=== PATIENT | female | born 1945 | race Caucasian/White ===

== ENCOUNTER → 2016-11-05 | Outpatient (CLI) | payer MEDICARE, OTHER ==
[~2016-11-05] MED LIST: /CIPR75TA OR; /ESOM40CA PO; /ONDA4TA PO; ACET50TA PO; ALBU17IN INH; BACITAB PO; BUPR150T3 PO; COLA50CA3 PO; E-Z-GAS II EFFERVESCENT PACKET (SODIUM BICARB./CITRIC ACID/SIMETHICONE) As Ordered ONE; E-Z-HD 98% w/w 340GM SUSP BTL As Ordered ONE; E-Z-PAQUE 96% w/w SUSP 176GM BTL As Ordered ONE; FLAG500T OR; FLUO40CA PO; HYDR-3719 PO; LEVS0.123 PO; NEUR300C PO; NORC5TAB PO; PERC5TAB PO; PERC5TAB8 OR; PROB1TAB PO; PROZ40CA OR; RANI300T PO; REGL10TA6 PO; SENO8.6T9 PO; SIME80CH PO; SUCR1SUS PO; SUCR1TA PO; SYMB16INH INH; VANC250C PO; VANC5INJ5 PO; WELLTAB PO; celebrex PO; neurontin OR; prilosec OR
--- NOTE | 2016-11-05 12:32 | REP ---
ESOPHAGRAM: The procedure was performed under the direct supervision of Dr. Jacobo. The images were reviewed with Dr. Jacobo. A single view PA chest x-ray is submitted as a internet sales consultant film. There is no change compared to a previous chest x-ray performed on 04/02/2015. Liquid barium was given in the erect and prone oblique positions. The oral and pharyngeal stages of deglutition are unremarkable. During esophageal transport, there are tertiary waves demonstrated. There is no esophagitis, stricture, mucosal ring or hiatal hernia. Gastroesophageal reflux is not demonstrated on this examination. There are postoperative changes at the GE junction consistent with the patient's history of Tiffany fundoplasty. There is free flow of contrast through the GE junction without evidence of stricture or obstruction. IMPRESSION: There are postoperative changes at the GE junction consistent with the patient's history of Tiffany fundoplasty. There is no delay of contrast through the GE junction. There is no evidence of stricture. There are tertiary waves demonstrated. 54 seconds of fluoroscopy time was utilized for this procedure. Reviewed by JOEL Neff 11/05/2016 01:42 PEdited and Signed by Vic Jacobo MD 11/05/2016 02:35 P
== END ==
LOC: M RAD 08:30
PROVIDERS: ATTEND Physician Assistant Medical
DX: R13.10 Dysphagia, unspecified (principal); R10.13 Epigastric pain; K21.9 Gastro-esophageal reflux disease without esophagitis

== ENCOUNTER → 2016-11-12 | Outpatient (CLI) | payer MEDICARE, OTHER ==
[~2016-11-12] VITALS: Ht 165.1 cm; Wt 66.7 kg
[~2016-11-12] MED LIST changes: -E-Z-GAS II EFFERVESCENT PACKET (SODIUM BICARB./CITRIC ACID/SIMETHICONE) As Ordered ONE; -E-Z-HD 98% w/w 340GM SUSP BTL As Ordered ONE; -E-Z-PAQUE 96% w/w SUSP 176GM BTL As Ordered ONE; +LIDOCAINE 2% INJ 100 MG/5 ML SDV (FOR ANES.) As Ordered ONE; +NS 1,000 ML IV SCH; +PROPOFOL 200 MG/20 ML VIAL As Ordered ONE
--- NOTE | 2016-11-12 10:29 | ROOR ---
Patient Name: Madonna Cerda Procedure Date: 11/12/2016 10:08 AM Date of : 1945 Age: 71 Room: [facility], [facility]IN [facility] Gender: Female Note Status: Finalized Procedure: Upper GI endoscopy Indications: Dysphagia, Heartburn, Failure to respond to medical treatment Providers: Fede LINDSEY MD Referring MD: DULCE HOANG MD Requesting Provider: Medicines: Monitored Anesthesia Care Complications: No immediate complications. Procedure: Pre-Anesthesia Assessment: - The heart rate, respiratory rate, oxygen saturations, blood pressure, adequacy of pulmonary ventilation, and response to care were monitored throughout the procedure. The Endoscope was introduced through the mouth, and advanced to the second part of duodenum. The upper GI endoscopy was accomplished without difficulty. The patient tolerated the procedure well. Findings: The examined esophagus was normal. The Z-line was regular and was found 39 cm from the incisors. Evidence of an anti-reflux surgical site was found in the cardia. This was characterized by healthy appearing mucosa. The entire examined stomach was normal. The examined duodenum was normal. No endoscopic abnormality was evident in the esophagus to explain the patient's complaint of dysphagia. It was decided, however, to proceed with dilation of the entire esophagus. The scope was withdrawn. Dilation was performed with a Bell dilator with no resistance at 54 Fr. The dilation site was examined following endoscope reinsertion and showed no change. No endoscopic abnormality was evident in the esophagus to explain the patient's complaint of dysphagia. This was biopsied with a cold forceps for evaluation of eosinophilic esophagitis. Impression: - Normal esophagus. No endoscopic esophageal abnormality to explain patient's dysphagia. Esophagus dilated.Biopsied. - Z-line regular, 39 cm from the incisors. - An anti-reflux surgical site was found, characterized by healthy appearing mucosa. - Normal stomach. - Normal examined duodenum. Recommendation: - Await pathology results. - Observe patient's clinical course. - Continue present medications. - dep on path and results of empiric dilation, consideration may be given to a trial of amitryptiline. Fede Lindsey MD Fede LINDSEY MD 11/12/2016 10:29:42 AM This report has been signed electronically. Number of Addenda: 0 Note Initiated On: 11/12/2016 10:08 AM Estimated Blood Loss: Estimated blood loss: none.
--- NOTE | 2016-11-12 10:46 | ROOR ---
Patient Name: Madonna Cerda Procedure Date: 11/12/2016 10:09 AM Date of : 1945 Age: 71 Room: [facility] Gender: Female Note Status: Finalized Procedure: Colonoscopy Indications: Screening for colorectal malignant neoplasm, Incidental: abnormal TI on recent CT, recent clostridium difficile Providers: Fede LINDSEY MD Referring MD: DULCE HOANG MD Requesting Provider: Medicines: Monitored Anesthesia Care Complications: No immediate complications. Procedure: Pre-Anesthesia Assessment: - The heart rate, respiratory rate, oxygen saturations, blood pressure, adequacy of pulmonary ventilation, and response to care were monitored throughout the procedure. The Colonoscope was introduced through the anus and advanced to 6 cm into the ileum. The colonoscopy was performed without difficulty. The patient tolerated the procedure well. The quality of the bowel preparation was good. Findings: (Exam: Complete, Prep: Good or Excellent.) Multiple medium-mouthed diverticula were found in the sigmoid colon. There was evidence of diverticular spasm. The entire examined colon appeared normal on direct and retroflexion views. The terminal ileum appeared normal. Impression: - (Exam: Complete, Prep: Good or Excellent.) - Moderate diverticulosis in the sigmoid colon. - The entire examined colon is normal on direct and retroflexion views. - The examined portion of the ileum was normal. - No specimens collected. Recommendation: - Repeat colonoscopy in 10 years for screening purposes. Fede Lindsey MD Fede LINDSEY MD 11/12/2016 10:45:58 AM This report has been signed electronically. Number of Addenda: 0 Note Initiated On: 11/12/2016 10:09 AM Estimated Blood Loss: Estimated blood loss: none.
[2016-11-12 11:05] VITALS: BP 165/67
== END | disposition home or self-care (01) ==
LOC: M OPP 08:24
PROVIDERS: ATTEND Internal Medicine Gastroenterology
DX: Z12.11 Encounter for screening for malignant neoplasm of colon (principal); K57.30 Diverticulosis of large intestine without perforation or abscess without bleeding; R13.10 Dysphagia, unspecified; Z98.890 Other specified postprocedural states; J44.9 Chronic obstructive pulmonary disease, unspecified; M19.90 Unspecified osteoarthritis, unspecified site; F41.9 Anxiety disorder, unspecified; F33.9 Major depressive disorder, recurrent, unspecified; Z87.891 Personal history of nicotine dependence; Z79.899 Other long term (current) drug therapy; Z79.51 Long term (current) use of inhaled steroids
CPT/HCPCS: 43239; 43450; 88305; G0121

== ENCOUNTER → 2016-11-14 | Outpatient (REF) | payer MEDICARE, OTHER ==
[~2016-11-14] MED LIST changes: -LIDOCAINE 2% INJ 100 MG/5 ML SDV (FOR ANES.) As Ordered ONE; -NS 1,000 ML IV SCH; -PROPOFOL 200 MG/20 ML VIAL As Ordered ONE
[2016-11-14 16:05] LABS: BLOOD UREA NITROGEN 20 MG/DL (7-18); CREATININE FOR GFR 0.94 MG/DL (0.55-1.02); GLOMERULAR FILTRATION RATE > 60.0 (>39)
== END ==
LOC: M LABDRAW1 15:27
PROVIDERS: ATTEND Orthopaedic Surgery
DX: M17.12 Unilateral primary osteoarthritis, left knee (principal)

== ENCOUNTER → 2016-12-02 | Outpatient (REF) | payer MEDICARE, OTHER ==
[2016-12-02 14:28] LABS: BASO % 0.8 % (0.0-1.0); EOS # 0.1 K/mm3 (0.0-0.50); LARGE UNSTAINED CELL # 0.1 K/mm3 (0.0-0.4); LARGE UNSTAINED CELL % 1.8 % (0.0-4.0); LYMPH # 1.5 K/mm3 (1.5-4.5); LYMPH % 28.9 % (24.0-44.0); MEAN CORPUSCULAR HEMOGLOBIN 30.9 pg (27.0-33.0); MEAN CORPUSCULAR HGB CONC 31.3 g/dl (32.0-36.5); MEAN CORPUSCULAR VOLUME 98.6 fl (80.0-96.0); MONO # 0.3 K/mm3 (0.0-0.8); MONO % 6.5 % (0.0-5.0); NEUTROPHILS % 60.1 % (36.0-66.0); PLATELET COUNT, AUTOMATED 225 k/mm3 (150-450); RED CELL DISTRIBUTION WIDTH 13.3 % (11.5-14.5)
[2016-12-02 14:36] LABS: ALBUMIN 3.6 GM/DL (3.2-5.2); ALBUMIN/GLOBULIN RATIO 1.44 (1.00-1.93); ALKALINE PHOSPHATASE 67 U/L (45-117); ALT/SGPT 24 U/L (12-78); AMYLASE 34 U/L (25-115); ANION GAP 8 MEQ/L (8-16); AST/SGOT 17 U/L (15-37); BILIRUBIN,TOTAL 0.6 MG/DL (0.2-1.0); BLOOD UREA NITROGEN 18 MG/DL (7-18); CALCIUM LEVEL 8.8 MG/DL (8.8-10.2); CARBON DIOXIDE LEVEL 30 MEQ/L (21-32); CHLORIDE LEVEL 106 MEQ/L (98-107); CREATININE FOR GFR 0.86 MG/DL (0.55-1.02); GLOMERULAR FILTRATION RATE > 60.0 (>39); GLUCOSE, FASTING 88 MG/DL (83-110); POTASSIUM SERUM 3.8 MEQ/L (3.5-5.1); SODIUM LEVEL 144 MEQ/L (136-145); TOTAL PROTEIN 6.1 GM/DL (6.4-8.2)
== END ==
LOC: M LABDRAW1 14:00
PROVIDERS: ATTEND Physician Assistant Medical
DX: R10.13 Epigastric pain (principal)

== ENCOUNTER → 2016-12-04 | Outpatient (CLI) | payer MEDICARE, OTHER ==
--- NOTE | 2016-12-04 08:31 | REP ---
Clinical: Acute epigastric abdominal pain. Technique: Sullivan scale ultrasound using curved array transducer. Findings: The liver and pancreas are normal in contour, size, and echogenicity without focal hepatic or pancreatic lesions identified. The gallbladder demonstrates layering sludge/gravel and a sonographic Atkins's sign was elicited during examination. No gallbladder wall thickening or pericholecystic fluid is appreciated. No biliary ductal dilatation is identified, and the common bile duct measures 3.5 mm diameter. The right kidney is normal in reniform shape without hydronephrosis and measures 10.5 x 5.2 x 3.5 cm. No ascites. Visualized portions of the abdominal aorta normal. Impression: Positive sonographic Atkins's sign with mildly distended gallbladder and of layering sludge/gravel. Early acute cholecystitis cannot be excluded and requires close clinical observation. Signed by Bj Kathleen MD 12/04/2016 08:22 A
--- NOTE | 2016-12-04 11:29 | REP ---
HIDA SCAN WITH GALLBLADDER EJECTION FRACTION: Following the intravenous administration of 6.5 mCi of technetium 99m mebrofenin, multiple images of the right upper quadrant are performed every 5 minutes for a period of 1 hour. Gallbladder is visualized at 10 minutes post injection. I do not see biliary to bowel transit by 1 hour which may indicate a hypertonic sphincter of Oddi. At the 1 hour stephane, 8 ounces of Ensure Enlive was ingested and further imaging performed for 1 hour. There is immediate biliary to bowel transit. Gallbladder activity is measured and gallbladder ejection fraction is calculated to be 66% which is normal. IMPRESSION: Delayed biliary to bowel transit may indicate a hypertonic sphincter of Oddi. There is normal gallbladder ejection fraction. Signed by Erick Sullivan MD 12/04/2016 12:17 P
== END ==
LOC: M RAD 07:32
PROVIDERS: ATTEND Physician Assistant Medical
DX: R10.13 Epigastric pain (principal); K21.9 Gastro-esophageal reflux disease without esophagitis; R11.0 Nausea; K82.8 Other specified diseases of gallbladder
CPT/HCPCS: 76705; 78227; A9537; J2805

== ENCOUNTER → 2016-12-11 | Outpatient (CLI) | payer MEDICARE, OTHER ==
--- NOTE | 2016-12-11 10:47 | REP ---
Clinical: Inconclusive PPD . Comparison: 12/19/2015 . Technique: PA and lateral. Findings: The mediastinum and cardiac silhouette are normal. The lung mendoza demonstrate chronic stable changes without acute consolidation, effusion, or pneumothorax. The skeletal structures are intact and normal. Impression: No acute cardiopulmonary process. Signed by Bj Kathleen MD 12/11/2016 10:38 A
[2016-12-11 10:54] LABS: MEAN CORPUSCULAR HEMOGLOBIN 31.2 pg (27.0-33.0); MEAN CORPUSCULAR HGB CONC 32.1 g/dl (32.0-36.5); MEAN CORPUSCULAR VOLUME 97.3 fl (80.0-96.0); RED CELL DISTRIBUTION WIDTH 13.1 % (11.5-14.5); WHITE BLOOD COUNT 4.7 K/mm3 (4.0-10.0)
[2016-12-11 11:01] LABS: INR 0.93
[2016-12-11 11:28] LABS: ALBUMIN 3.7 GM/DL (3.2-5.2); ALBUMIN/GLOBULIN RATIO 1.23 (1.00-1.93); ALKALINE PHOSPHATASE 66 U/L (45-117); ALT/SGPT 19 U/L (12-78); ANION GAP 5 MEQ/L (8-16); AST/SGOT 15 U/L (15-37); BILIRUBIN,TOTAL 0.6 MG/DL (0.2-1.0); BLOOD UREA NITROGEN 12 MG/DL (7-18); CALCIUM LEVEL 8.8 MG/DL (8.8-10.2); CARBON DIOXIDE LEVEL 33 MEQ/L (21-32); CHLORIDE LEVEL 106 MEQ/L (98-107); CHOLESTEROL LEVEL 182 MG/DL (<200); CREATININE FOR GFR 0.78 MG/DL (0.55-1.02); GLOMERULAR FILTRATION RATE > 60.0 (>39); GLUCOSE, FASTING 86 MG/DL (83-110); POTASSIUM SERUM 4.2 MEQ/L (3.5-5.1); SODIUM LEVEL 144 MEQ/L (136-145); TOTAL PROTEIN 6.7 GM/DL (6.4-8.2); TRIGLYCERIDES LEVEL 54 MG/DL (<150)
--- NOTE | 2016-12-11 13:59 | ECGEPIP ---
Stationary ECG Study [facility] Test Date: 2016-12-11 Pat Name: ENE JUDGE Department: Room: - Gender: F Sequins Slinger: REAGAN : 1945 Requested By: Danelle Nolen Order Number: [id number] Reading MD: Fede Mccoy Measurements Intervals [place] Rate: 74 P: 63 MA: 191 QRS: 27 QRSD: 145 T: 74 QT: 404 QTc: 450 Interpretive Statements SINUS RHYTHM LEFT BUNDLE BRANCH BLOCK No significant change compared with 03/23/2015. Electronically Signed On 12-11-2016 13:58:58 EST by Fede Mccoy
== END ==
LOC: M LAB 09:45
PROVIDERS: ATTEND Family Medicine
DX: Z01.818 Encounter for other preprocedural examination (principal); J44.9 Chronic obstructive pulmonary disease, unspecified; D64.9 Anemia, unspecified

== ENCOUNTER → 2016-12-22 | Outpatient (REF) | payer MEDICARE, OTHER ==
[~2016-12-22] MED LIST changes: +DIFI200T PO; +FLORCAP6 PO; +NEXI40CA PO
== END ==
LOC: M LAB 10:06
PROVIDERS: ATTEND Physician Assistant Medical
DX: A04.7 Enterocolitis due to Clostridium difficile (principal)

== ENCOUNTER → 2017-01-01 | Day surgery (SDC) | payer MEDICARE, OTHER ==
[~2017-01-01] VITALS: Ht 165.1 cm; Wt 63.5 kg
[~2017-01-01] MED LIST changes: +GLYCOPYRROLATE INJ 0.2 MG/ML 2 ML VIAL As Ordered ONE; +HYDROmorphone HCL 1 MG/ML SYRINGE (J1170) As Ordered ONE; +LIDOCAINE 2% INJ 100 MG/5 ML SDV (FOR ANES.) As Ordered ONE; +LR 1,000 ML IV SCH; +METOCLOPRAMIDE INJ 10MG/2ML VIAL (J2765) As Ordered ONE; +METOCLOPRAMIDE INJ 10MG/2ML VIAL (J2765) IV PRN; +MIDAZOLAM INJ 2 MG/2 ML VIAL (J2250) As Ordered ONE; +MORPHINE 2 MG/ML 1ML SYRINGE IV PRN; +NEOSTIGMINE 1MG/ML 5 ML SYRINGE (J2710) As Ordered ONE; +NORCO, ANEXSIA 5/325MG TABLET (HYDROcodone/ACETAMINOPHEN) PO PRN; +ONDANSETRON 4MG/2ML VIAL (J2405) As Ordered ONE; +ONDANSETRON 4MG/2ML VIAL (J2405) IV PRN; +PROMETHAZINE INJ 25 MG/ML VIAL (J2550) As Ordered ONE; +PROMETHAZINE INJ 25 MG/ML VIAL (J2550) IV ONE; +PROPOFOL 200 MG/20 ML VIAL As Ordered ONE; +ROCURONIUM BROMIDE 50 MG/5 ML VIAL As Ordered ONE; +fentaNYL 100 MCG/2 ML INJECTION (J3010) As Ordered ONE
[2017-01-01] MEDS: BUPIVACAINE/EPIN 0.25% 30 ML VIAL As Ordered ONE ×2 (11:20→11:38)
[2017-01-01] MEDS: fentaNYL 100 MCG/2 ML INJECTION (J3010) IV PRN ×4 (13:02→13:29)
[2017-01-01] MEDS: HYDROmorphone HCL 1 MG/ML SYRINGE (J1170) IV PRN ×2 (13:37→13:45)
[2017-01-01 20:10] VITALS: BP 143/72
--- NOTE | 2017-01-02 09:06 | RO ---
DATE OF PROCEDURE: 01/01/2017 PREOPERATIVE DIAGNOSIS: Symptomatic cholelithiasis. POSTOPERATIVE DIAGNOSIS: Symptomatic cholelithiasis. PROCEDURE: Laparoscopic cholecystectomy. SURGEON: Dr. Erick Esquivel CIRCULAR SAWYER HELPER: Dr. Bell ANESTHESIA: General. ESTIMATED BLOOD LOSS (EBL): 5. COMPLICATIONS: None. INDICATIONS FOR PROCEDURE: The patient is a 71-year-old female who presents with persistent right upper quadrant abdominal pain and found to have symptomatic cholelithiasis. Recommendation was to proceed with laparoscopic, possible open cholecystectomy. The risks and benefits of the procedure not limited to, but including bleeding, infection, hernia formation, damage to surrounding structures, need for further surgery were discussed in detail with the patient and informed consent was obtained and the procedure was planned. PROCEDURE: The patient was brought back to operating room three after sufficient sedation, the abdomen was sterilely prepped and draped. Next, a time-out was done to confirm proper patient and proper procedure. Following that, a stab incision made in left lower quadrant. Veress needle was inserted and the abdomen was insufflated to 15 mm of mercury. Next, a 5 mm supraumbilical incision was made. A 5 mm Optiview port was used to gain access to the abdomen. Once the abdomen was entered, there were significant adhesions encountered. I was unable to see outside of them. The Veress needle was then removed. Another 5 mm Optiview port was used to gain access at the Veress needle site in the left upper quadrant. From this point, I was able to see the adhesions clearly and was also able to place two more 5 mm ports in the right upper quadrant. From those ports, I was able to use the electrocautery to take down the adhesions periumbilically and converted the 5 mm at the umbilicus to an 11 mm port. Next, the fundus of gallbladder was grasped and elevated up towards the right shoulder. The cystic duct and cystic artery were both then dissected out until they were clearly identified. They were both doubly clipped and cut. The gallbladder was removed from gallbladder fossa using electrocautery and brought out through the umbilical port site in a 10 mm EndoCatch bag. The abdomen was examined one last time to confirm hemostasis. The abdomen was then desufflated. Skin incisions closed #4-0 Vicryl subcuticular sutures. The abdomen was cleaned and dried. Steri-Strips, 4x4 and tape were applied, thus ending the
== END | disposition home or self-care (01) ==
LOC: M SDC 09:12
PROVIDERS: ATTEND Surgery
DX: K80.18 Calculus of gallbladder with other cholecystitis without obstruction (principal); J44.9 Chronic obstructive pulmonary disease, unspecified; K21.9 Gastro-esophageal reflux disease without esophagitis; F41.9 Anxiety disorder, unspecified; F32.9 Major depressive disorder, single episode, unspecified; Z79.899 Other long term (current) drug therapy
CPT/HCPCS: 47562; 88304; J0690; J1170; J2250; J2405; J2710; J2765; J3010

== ENCOUNTER → 2017-04-03 | Outpatient (REF) | payer MEDICARE, OTHER ==
[~2017-04-03] MED LIST changes: -GLYCOPYRROLATE INJ 0.2 MG/ML 2 ML VIAL As Ordered ONE; -HYDROmorphone HCL 1 MG/ML SYRINGE (J1170) As Ordered ONE; -LIDOCAINE 2% INJ 100 MG/5 ML SDV (FOR ANES.) As Ordered ONE; -LR 1,000 ML IV SCH; -METOCLOPRAMIDE INJ 10MG/2ML VIAL (J2765) As Ordered ONE; -METOCLOPRAMIDE INJ 10MG/2ML VIAL (J2765) IV PRN; -MIDAZOLAM INJ 2 MG/2 ML VIAL (J2250) As Ordered ONE; -MORPHINE 2 MG/ML 1ML SYRINGE IV PRN; -NEOSTIGMINE 1MG/ML 5 ML SYRINGE (J2710) As Ordered ONE; -NORCO, ANEXSIA 5/325MG TABLET (HYDROcodone/ACETAMINOPHEN) PO PRN; -ONDANSETRON 4MG/2ML VIAL (J2405) As Ordered ONE; -ONDANSETRON 4MG/2ML VIAL (J2405) IV PRN; -PROMETHAZINE INJ 25 MG/ML VIAL (J2550) As Ordered ONE; -PROMETHAZINE INJ 25 MG/ML VIAL (J2550) IV ONE; -PROPOFOL 200 MG/20 ML VIAL As Ordered ONE; -ROCURONIUM BROMIDE 50 MG/5 ML VIAL As Ordered ONE; -fentaNYL 100 MCG/2 ML INJECTION (J3010) As Ordered ONE
== END ==
LOC: M LAB REF 09:02
PROVIDERS: ATTEND Physician Assistant Medical
DX: A04.7 Enterocolitis due to Clostridium difficile (principal)

== ENCOUNTER → 2017-04-18 | Outpatient (CLI) | payer MEDICARE, OTHER ==
[2017-04-18 10:32] LABS: BASO % 0.5 % (0.0-1.0); EOS # 0.1 K/mm3 (0.0-0.50); EOS % 3.1 % (0.0-3.0); LARGE UNSTAINED CELL # 0.1 K/mm3 (0.0-0.4); LARGE UNSTAINED CELL % 1.9 % (0.0-4.0); LYMPH # 1.7 K/mm3 (1.5-4.5); LYMPH % 34.8 % (24.0-44.0); MEAN CORPUSCULAR HEMOGLOBIN 31.3 pg (27.0-33.0); MEAN CORPUSCULAR HGB CONC 32.2 g/dl (32.0-36.5); MEAN CORPUSCULAR VOLUME 97.4 fl (80.0-96.0); MONO # 0.3 K/mm3 (0.0-0.8); MONO % 6.9 % (0.0-5.0); NEUTROPHILS # 2.4 K/mm3 (1.8-7.7); NEUTROPHILS % 52.8 % (36.0-66.0); PLATELET COUNT, AUTOMATED 250 k/mm3 (150-450); RED CELL DISTRIBUTION WIDTH 13.7 % (11.5-14.5); WHITE BLOOD COUNT 4.5 K/mm3 (4.0-10.0)
[2017-04-18 11:11] LABS: ALBUMIN 3.7 GM/DL (3.2-5.2); ALKALINE PHOSPHATASE 87 U/L (45-117); ALT/SGPT 18 U/L (12-78); ANION GAP 3 MEQ/L (8-16); AST/SGOT 10 U/L (15-37); BILIRUBIN,TOTAL 0.9 MG/DL (0.2-1.0); BLOOD UREA NITROGEN 11 MG/DL (7-18); CARBON DIOXIDE LEVEL 33 MEQ/L (21-32); CHLORIDE LEVEL 108 MEQ/L (98-107); CREATININE FOR GFR 0.69 MG/DL (0.55-1.02); GLOMERULAR FILTRATION RATE > 60.0 (>39); GLUCOSE, FASTING 86 MG/DL (83-110); POTASSIUM SERUM 3.7 MEQ/L (3.5-5.1); SODIUM LEVEL 144 MEQ/L (136-145); TOTAL PROTEIN 7.4 GM/DL (6.4-8.2)
== END ==
LOC: M LAB 10:08
PROVIDERS: ATTEND Physician Assistant Medical
DX: R10.30 Lower abdominal pain, unspecified (principal); A04.7 Enterocolitis due to Clostridium difficile

== ENCOUNTER → 2017-04-29 | Outpatient (CLI) | payer MEDICARE, OTHER ==
[~2017-04-29] MED LIST changes: +GASTROGRAFIN SOLUTION 30ML (Q9963) As Ordered ONE; +ISOVUE-370 76% 100ML VIAL (Q9967) As Ordered ONE
--- NOTE | 2017-04-29 15:55 | REP ---
HISTORY: Abdominal pain, weight loss. COMPARISON: Multiple latest, 08/13/2016. CONTRAST: 100 mL [id number] The lungs bases are unchanged. There are no pleural or pericardial effusions. Noncontrast enhanced portion of the examination shows hepatic and splenic densities to be within normal limits. There are surgical clips in the gallbladder fossa from previous cholecystectomy, which represents a change from the prior exam. Contrast enhanced portion of the examination shows mild intrahepatic ductal dilatation, likely secondary to te post cholecystectomy state and representing a change from the prior exam. There are no enhancing hepatic lesions. The spleen, pancreas, adrenal glands and kidneys are within normal limits. There is no significant change from prior exam. The abdominal aorta and paraaortic regions are within normal limits. There is no free fluid or free air seen in the abdomen. The bowel loops and their mesenteries are within normal limits. There is a large amount of colonic content. CT PELVIS: The bowel loops and their mesenteries are within normal limits. There is no mass or adenopathy. There is no free fluid or free air. Bone window technique throughout the examination shows chronic osseous changes, status quo. IMPRESSION: No evidence of acute intraabdominal or intrapelvic disease with findings as described above. It should be stated that there surgical clips in the left upper quadrant, unchanged from the prior exam secondary to previous gastroesophageal procedure, the appearance of which is completely unchanged from the prior exam. Signed by Steven Whitaker DO 04/29/2017 04:37 P
== END ==
LOC: M RAD 11:56
PROVIDERS: ATTEND Internal Medicine Gastroenterology
DX: R10.30 Lower abdominal pain, unspecified (principal); R11.0 Nausea; R63.4 Abnormal weight loss; Z90.49 Acquired absence of other specified parts of digestive tract
CPT/HCPCS: 74178; Q9963; Q9967

== ENCOUNTER → 2017-11-21 | Outpatient (REF) | payer MEDICARE, OTHER | LOC: M LAB REF 09:33 | DX: R19.4 Change in bowel habit (principal) | CPT/HCPCS: 83630 ==

== ENCOUNTER → 2017-12-05 | Outpatient (CLI) | payer MEDICARE, OTHER ==
[~2017-12-05] MED LIST changes: -/CIPR75TA OR; -/ESOM40CA PO; -/ONDA4TA PO; -ACET50TA PO; -ALBU17IN INH; -BACITAB PO; -BUPR150T3 PO; -COLA50CA3 PO; -DIFI200T PO; -FLAG500T OR; -FLORCAP6 PO; -FLUO40CA PO; -GASTROGRAFIN SOLUTION 30ML (Q9963) As Ordered ONE; +GLUCAGON FOR INJ 1 MG VIAL (J1610) As Ordered; -HYDR-3719 PO; +ISOVUE-370 76% 100ML VIAL (Q9967) As Ordered; -ISOVUE-370 76% 100ML VIAL (Q9967) As Ordered ONE; -LEVS0.123 PO; -NEUR300C PO; -NEXI40CA PO; -NORC5TAB PO; -PERC5TAB PO; -PERC5TAB8 OR; -PROB1TAB PO; -PROZ40CA OR; -RANI300T PO; -REGL10TA6 PO; -SENO8.6T9 PO; -SIME80CH PO; -SUCR1SUS PO; -SUCR1TA PO; -SYMB16INH INH; -VANC250C PO; -VANC5INJ5 PO; +VoLumen 0.1% SUSPENSION 450ML BOTTLE As Ordered; -WELLTAB PO; -celebrex PO; -neurontin OR; -prilosec OR
== END ==
LOC: M RAD 08:59
DX: R10.84 Generalized abdominal pain (principal); R19.4 Change in bowel habit; R11.0 Nausea
CPT/HCPCS: Q9967

== ENCOUNTER → 2018-04-13 | Outpatient (CLI) | payer MEDICARE, OTHER | LOC: M LRY 09:56 | DX: S62.664A Nondisplaced fracture of distal phalanx of right ring finger, initial encounter for closed fracture (principal); M19.041 Primary osteoarthritis, right hand; M85.841 Other specified disorders of bone density and structure, right hand; M25.441 Effusion, right hand; W23.1XXA Caught, crushed, jammed, or pinched between stationary objects, initial encounter; Y92.9 Unspecified place or not applicable; Y93.9 Activity, unspecified | CPT/HCPCS: 29130; 73130 ==

== ENCOUNTER → 2018-11-16 | Outpatient (CLI) | payer MEDICARE, OTHER ==
[~2018-11-16] MED LIST changes: +/CIPR75TA OR; +/ESOM40CA PO; +/ONDA4TA PO; +ACET50TA PO; +ALBU17IN INH; +BACITAB PO; +BUPR150T3 PO; +COLA50CA3 PO; +DIFI200T PO; +FLAG500T OR; +FLORCAP6 PO; +FLUO40CA PO; -GLUCAGON FOR INJ 1 MG VIAL (J1610) As Ordered; +HYDR-3719 PO; -ISOVUE-370 76% 100ML VIAL (Q9967) As Ordered; +LEVS0.123 PO; +NEUR300C PO; +NEXI40CA PO; +NORC5TAB PO; +PERC5TAB PO; +PERC5TAB8 OR; +PROB1TAB PO; +PROZ40CA OR; +RANI300T PO; +REGL10TA6 PO; +SENO8.6T9 PO; +SIME80CH PO; +SUCR1SUS PO; +SUCR1TA PO; +SYMB16INH INH; +VANC250C PO; +VANC5INJ5 PO; -VoLumen 0.1% SUSPENSION 450ML BOTTLE As Ordered; +WELLTAB PO; +celebrex PO; +neurontin OR; +prilosec OR
[2018-11-16 17:52] LABS: BLOOD UREA NITROGEN 21 MG/DL (7-18); CREATININE FOR GFR 0.94 MG/DL (0.55-1.30); GLOMERULAR FILTRATION RATE > 60.0 (>39)
== END ==
LOC: M WUC 14:45
PROVIDERS: ATTEND Physician Assistant
DX: M51.36 Other intervertebral disc degeneration, lumbar region (principal)

== ENCOUNTER → 2018-11-23 | Outpatient (CLI) | payer MEDICARE, OTHER ==
[~2018-11-23] MED LIST changes: +PROHANCE 279.3MG/ML 15ML VIAL (A9576) As Ordered ONE
--- NOTE | 2018-11-23 15:40 | REP ---
MR LUMBAR SPINE WITHOUT AND WITH CONTRAST: HISTORY: Back pain. CONTRAST: ProHance 13 mL. COMPARISON: 11/23/2018. Decreased signal intensity on T2-weighted images is present in the lumbar intervertebral discs. The discs are decreased in height. These findings are consistent with disc degeneration. A diffuse disc bulge is present at the L1-2 level. There is minimal compression of the thecal sac. There is hypertrophy of the posterior articulating facets. The L1 nerves exit the neural foramina without compression. A diffuse disc bulge is present at the L2-3 level. There is minimal compression of the thecal sac. There is hypertrophy of the ligamenta flava and posterior articulating facets. The L2 nerves exit the neural foramina without compression. A diffuse disc bulge and small central disc extrusion are present at the L3-4 level. There is inferior migration of disc material. There is hypertrophy of the ligamenta flava and posterior articulating facets. These findings produce mild central canal stenosis. There is compression of the left L3 nerve in the neural foramen. The right L3 nerve exits the neural foramen without compression. The patient is status post L4-5 posterior spinal fusion and laminectomy. Metal rods and pedicle screws are present. A diffuse disc bulge is present. This abuts the thecal sac. The L4 nerves exit the neural foramina without compression. Scar tissue is present in the left lateral aspect of the spinal canal. The scar tissue involves the left L5 nerve. A diffuse disc bulge is present at the L5-S1 level. This abuts the thecal sac. There is hypertrophy of the posterior articulating facets. The L5 nerves exit the neural foramina without compression. The conus medullaris is normal in appearance terminating at the level of the T12-L1 intervertebral disc. Increased signal intensity on T2-weighted images is present in the endplates of the L2 and L3 vertebral bodies. This represents degenerative change. There is no subluxation. IMPRESSION: 1. Diffuse disc bulges at the L1-2 and L2-3 levels with minimal thecal sac compression. 2. Mild central canal stenosis at the L3-4 level secondary to disc bulge, disc extrusion, ligamentous, and facet hypertrophy. There is compression of the left L3 nerve in the neural foramen. The disc extrusion and left L3 nerve compression are new findings. There has been progression of the canal stenosis. 3. The patient is status post L4-5 posterior spinal fusion and laminectomy. Scar tissue involves the left L5 nerve. 4. Diffuse disc bulge at the L5-S1 level. This abuts the thecal sac. There is no other significant change. Electronically Signed by Solomon Traylor MD 11/23/2018 03:58 P
== END ==
LOC: M RAD 13:44
PROVIDERS: ATTEND Physician Assistant
DX: M51.26 Other intervertebral disc displacement, lumbar region (principal)
CPT/HCPCS: 72158; A9576

== ENCOUNTER 2018-12-04 19:08 | Emergency (ER) | payer MEDICARE, OTHER ==
[~2018-12-04] VITALS: Ht 167.6 cm; Wt 72.7 kg
[~2018-12-04 19:08] MED LIST changes: -PROHANCE 279.3MG/ML 15ML VIAL (A9576) As Ordered ONE
[2018-12-04] MEDS ORDERED: KETOROLAC 30 MG/ML VIAL (J1885) IV ONE (19:30)
[2018-12-04] MEDS ORDERED: NS 1,000 ML IV ONE (19:30)
[2018-12-04] MEDS ORDERED: ONDANSETRON 4MG/2ML VIAL (J2405) IV ONE (19:30)
[2018-12-04] MEDS ORDERED: PANTOPRAZOLE 40MG INJ (PROTONIX) (C9113) IV ONE (19:30)
[2018-12-04 19:56] LABS: BASO % 0.3 % (0.0-1.0); EOS % 0.5 % (0.0-3.0); HEMATOCRIT 36.8 % (36.0-47.0); HEMOGLOBIN 11.6 g/dl (12.0-15.5); LYMPH # 1.6 10^3/uL (1.5-4.5); MEAN CORPUSCULAR HEMOGLOBIN 30.8 pg (27.0-33.0); MEAN CORPUSCULAR HGB CONC 31.5 g/dl (32.0-36.5); MEAN CORPUSCULAR VOLUME 97.6 fl (80.0-96.0); MONO # 0.6 10^3/uL (0.0-0.8); MONO % 16.7 % (0.0-5.0); NEUTROPHILS # 1.6 10^3/uL (1.8-7.7); PLATELET COUNT, AUTOMATED 270 10^3/uL (150-450); RED BLOOD COUNT 3.77 10^6/uL (4.00-5.40); WHITE BLOOD COUNT 3.8 10^3/uL (4.0-10.0)
[2018-12-04] MEDS ORDERED: INCR1INH INH (20:17)
[2018-12-04] MEDS ORDERED: DICL1GEL3 TOP (20:17)
[2018-12-04] MEDS ORDERED: MELO7.5T7 PO (20:17)
[2018-12-04] MEDS ORDERED: GABA-845 PO (20:17)
[2018-12-04] MEDS ORDERED: VENTAER INH (20:17)
[2018-12-04] MEDS ORDERED: ROPI0.253 PO (20:17)
[2018-12-04] MEDS ORDERED: ONDA4TAB6 PO (20:17)
--- NOTE | 2018-12-04 20:22 | REP ---
ACUTE ABDOMINAL SERIES: 12/04/2018. Clinical history: Abdominal pain. Comparison: Abdominal series 04/06/2012, CT abdomen and pelvis 12/05/2017. Findings: PA chest: Lung mendoza well inflated. No effusion, infiltrate, atelectasis or mass. Heart is mildly prominent with left atrial and ventricular enlargement suggested as an interval change. I see no vascular redistribution or pulmonary edema. The aorta is calcified at the arch, mildly tortuous but without aneurysm. Airway is intact. Bones demineralized but without fracture or destructive lesion visible. No free air. Flat upright abdomen. Pedicle screws and arch bars at L4 and L5 as on CT. There is a dextroconvex lumbar scoliosis centered at L3 with degenerative disc and vacuum phenomenon at L2-3 and L3-4. The L3 pedicles, spinous and transverse processes and those levels above it visible were intact. Slight dextrorotation noted of the upper lumbar spine. Upper abdominal surgical clips in the left upper quadrant and right upper quadrant noted. Gas pattern nonspecific without obstruction, mass or free air. There are a few air-fluid levels in nondilated bowel loops. This may reflect some gastroenteritis or focal ileus, but no obstruction. Stool and gas overlie portions of the sigmoid. There are advanced degenerative changes lower thoracic spine with narrowing of the disc spaces and bilateral hip arthritis. No pelvic fracture or focal lesion. Impression: 1. Nonspecific gas pattern without obstruction, mass or free air. There are a few air-fluid levels that might reflect some gastroenteritis or focal ileus, but no obstruction. No free air. 2. Prior lower lumbar fusion at L4-5 with degenerative disc and facet arthritic changes as well as bilateral hip arthritis. Surgical clips upper abdomen. 3. Basilar fibrotic change but no effusion, cardiomegaly or edema. No definite infiltrate. Electronically Signed by Jemal Torres MD 12/05/2018 07:53 A
[2018-12-04 20:25] LABS: ALBUMIN 3.8 GM/DL (3.2-5.2); ALT/SGPT 47 U/L (12-78); BILIRUBIN,DIRECT 0.2 MG/DL (0.0-0.2); BILIRUBIN,TOTAL 0.6 MG/DL (0.2-1.0); BLOOD UREA NITROGEN 13 MG/DL (7-18); CALCIUM LEVEL 8.4 MG/DL (8.8-10.2); CARBON DIOXIDE LEVEL 25 MEQ/L (21-32); CHLORIDE LEVEL 106 MEQ/L (98-107); CREATININE FOR GFR 0.77 MG/DL (0.55-1.30); GLOMERULAR FILTRATION RATE > 60.0 (>39); GLUCOSE, FASTING 89 MG/DL (70-100); LIPASE 73 U/L (73-393); POTASSIUM SERUM 3.8 MEQ/L (3.5-5.1); SODIUM LEVEL 139 MEQ/L (136-145); TOTAL PROTEIN 6.5 GM/DL (6.4-8.2)
[2018-12-04] MEDS ORDERED: REGL10TA6 PO (22:01)
[2018-12-04 22:07] VITALS: BP 149/65
== END 2018-12-04 22:10 | disposition home or self-care (01) ==
LOC: M ED 19:08
DX: K52.9 Noninfective gastroenteritis and colitis, unspecified (principal); J45.909 Unspecified asthma, uncomplicated; Z79.899 Other long term (current) drug therapy
CPT/HCPCS: 74021; 80048; 80076; 83690; 85025; 96374; 96375; 99284; C9113; J1885; J2405

== ENCOUNTER → 2019-01-27 | Outpatient (REF) | payer MEDICARE, OTHER ==
[~2019-01-27] MED LIST changes: -/ESOM40CA PO; -/ONDA4TA PO; -ACET50TA PO; +DICL1GEL3 TOP; +GABA-845 PO; +INCR1INH INH; +MAPA500T17 PO; +MELO7.5T7 PO; +NEXI1CAP3 PO; +ONDA-1 PO; +ONDA4TAB6 PO; +ROPI0.253 PO; +VENTAER INH
[2019-01-27 18:33] LABS: INR 1.03; PROTHROMBIN TIME 13.6 SECONDS (12.1-14.4)
== END ==
LOC: M LABDRAW1 17:02
PROVIDERS: ATTEND Physical Medicine & Rehabilitation
DX: Z79.01 Long term (current) use of anticoagulants (principal); D69.1 Qualitative platelet defects

== ENCOUNTER → 2019-08-18 | Outpatient (CLI) | payer MEDICARE, OTHER ==
--- NOTE | 2019-08-18 14:45 | REP ---
MRI cervical spine: 08/18/2019. Indication: Cervical radiculopathy. Comparison: None. Technique: Multiplanar short and long TR sequences of the cervical spine were performed. Findings: Small osseous cyst is noted within the superior aspect of C4. No worrisome marrow signal is present. Focal fatty marrow is additionally noted within the inferior aspect of T3. The visualized cord is normal. The vertebral artery flow voids are unremarkable. Disc dessication is present throughout. C2/C3 and C3/C4: Unremarkable. C4/C5: Minor diffuse disc bulge is present without significant spinal canal or neural foraminal narrowing. C5/C6: Unremarkable. C6/C7: Diffuse disc bulges present more apparent on the right with effacement of the ventral thecal sac. No significant neural foraminal narrowing is present. C7/T1: Unremarkable. Impression: No significant disc herniations or areas of significant spinal canal / neural foraminal narrowing. Electronically Signed by Guy Hudson DO 08/18/2019 02:36 P
== END ==
LOC: M RAD 13:01
PROVIDERS: ATTEND Physician Assistant
DX: M43.12 Spondylolisthesis, cervical region (principal); Z98.1 Arthrodesis status

== ENCOUNTER → 2019-09-06 | Outpatient (CLI) | payer MEDICARE, OTHER ==
[~2019-09-06] MED LIST changes: +BUPR300T34 PO; +FAMO20TA PO; +MELO7.5T35 PO; +TIZA2TAB4 PO
--- NOTE | 2019-09-06 12:15 | REP ---
WHOLE BODY BONE SCAN: Following the intravenous administration of 21.7 mCi of technetium-99m MDP, whole body images are obtained in the anterior and posterior projections with multiple oblique and lateral views as well. There is a band of increased uptake in the region of the left femoral head and neck. I suspect this represents a fracture. Arthritic uptake is noted at both shoulders, right sternoclavicular joint, bilateral knees, and throughout the spine. Renal and bladder activity are seen. IMPRESSION: Band of increased uptake in the region of the left femoral head and neck suspicious for fracture. Electronically Signed by Erick Sullivan MD 09/07/2019 08:40 P
== END ==
LOC: M RAD 08:01
PROVIDERS: ATTEND Physician Assistant
DX: M25.552 Pain in left hip (principal)
CPT/HCPCS: 78306; A9503

== ENCOUNTER 2019-09-08 13:40 | Inpatient (IN) | payer MEDICARE, OTHER ==
[~2019-09-08] VITALS: Ht 167.6 cm; Wt 73.6 kg
[~2019-09-08 13:40] MED LIST changes: -BUPR300T34 PO; -FAMO20TA PO; -MELO7.5T35 PO; -TIZA2TAB4 PO
[2019-09-08] MEDS ORDERED: ALBUTEROL SULFATE 2.5 MG/0.5 ML INH NEB SOLN NEB PRN (15:00)
[2019-09-08 15:23] LABS: HEMOGLOBIN 11.7 g/dl (12.0-15.5); MEAN CORPUSCULAR HEMOGLOBIN 30.7 pg (27.0-33.0); MEAN CORPUSCULAR HGB CONC 30.8 g/dl (32.0-36.5); MEAN CORPUSCULAR VOLUME 99.7 fl (80.0-96.0); PLATELET COUNT, AUTOMATED 307 10^3/uL (150-450); RED BLOOD COUNT 3.81 10^6/uL (4.00-5.40); WHITE BLOOD COUNT 6.7 10^3/uL (4.0-10.0)
[2019-09-08 15:59] LABS: BLOOD UREA NITROGEN 15 MG/DL (7-18); CALCIUM LEVEL 9.2 MG/DL (8.8-10.2); CARBON DIOXIDE LEVEL 30 MEQ/L (21-32); CHLORIDE LEVEL 107 MEQ/L (98-107); CREATININE FOR GFR 0.79 MG/DL (0.55-1.30); GLOMERULAR FILTRATION RATE > 60.0 (>39); GLUCOSE, FASTING 86 MG/DL (70-100); POTASSIUM SERUM 4.2 MEQ/L (3.5-5.1); SODIUM LEVEL 142 MEQ/L (136-145)
--- NOTE | 2019-09-08 16:02 | HPEPDOC ---
General Date of Admission Sep 08, 2019 at 14:38 Date of Service: Sep 08, 2019 Chief Complaint The patient is a 74-year-old female admitted with a reason for visit of Femoral Neck Fracture (Hip). Source: Patient, Old records History of Present Illness Consultation report Consultation requested by orthopedics. Consultation for preop clearance and management of medical commonalities. HPI: 74 funmilayo old female has be having left hip pain with difficulty in baring weight in that leg for the past 3 weeks. SHe had a stress fracture in the left knee in December and has been using a walker since then. About 4 to 5 weeks ago she started walking independently not needing the walker. # weeks ago she woke up in the middle of the night to go to the bathroom and could not bear weight on that leg. Patient was still able to walk holding on to things and limping and was using over the counter pain medications. Pain was about 6/10 located in the left hip , dull aching in type with radiation down the leg to the foot shock like when she puts weight on that foot. She went to see Ortho on Friday and had a bone scan done which showed possible fracture in the left femoral neck. She was recalled today to go back to the ortho office and underwent and MRI of left hip which showed a definite fracture. Patient was sent to the hospital for admission with plan for surgery today. Hospitalist was consulted for preop clearance and management of medical commorbidities. Home Medications Scheduled Bupropion HCl (Bupropion Xl) 300 Mg Tab.er.24h, 300 MG PO DAILY, (Reported) Famotidine (Famotidine) 20 Mg Tablet, 20 MG PO BID, (Reported) Fluoxetine Hcl (Fluoxetine HCl) 40 Mg Cap, 40 MG PO DAILY, (Reported) Gabapentin (Gabapentin) 400 Mg Cap, 400 MG PO QID, (Reported) Lactobacillus Acidophilus (Florajen) 1 Cap Cap, 1 CAP PO DAILY, (Reported) Meloxicam (Meloxicam) 7.5 Mg Tablet, 7.5 MG PO BID, (Reported) Rivaroxaban (Xarelto) 10 Mg Tablet, 1 MG PO DAILY Umeclidinium [place] (Incruse Ellipta) 62.5 Mcg/Inh Inh, 1 PUFF INH DAILY, (Reported) Scheduled PRN Albuterol Sulfate (Ventolin Hfa) 108 Mcg/Act Aer, 2 PUFF INH Q4H PRN for wheezing, (Reported) Diclofenac Sodium (Diclofenac Sodium) 1 % Gel, 1 APLCT TOP QID PRN for PAIN, (Reported) APPLIES TO RIGHT KNEE AND BACK, HAS BEEN APPLYING TO HIP WELL LAETLY Hydrocodone/Acetaminophen (Hydrocodone-Acetamin 10-325 mg) 1 Tab Tab, 1 TAB PO QID PRN for PAIN, (Reported) Oxycodone HCl (Oxycodone HCl) 5 Mg Tablet, 1-2 TABS PO Q4H PRN for PAIN Sucralfate (Sucralfate) 1 Gm Tab, 1 GM PO ACHS PRN for ULCER PAIN, (Reported) Tizanidine HCl (Tizanidine HCl) 2 Mg Tablet, 2 MG PO TID PRN for MUSCLE SPASMS, (Reported) Allergies Coded Allergies: No Known Allergies (Verified , 12/24/16) Past Medical History Medical History GERD, Anxiety , depression, COPD, diverticulosis, Lumber central canal stenosis , restless legs, low back pain Surgical History Tiffany fundoplasty, Esophageal dilatation cholecystectomy bilateral thumbs; bilateral elbows; Disc surgery; bilateral Knee Arthroplasty, L4-5 posterior spinal fusion and laminectomy. Family History Significant Family History: Heart disease Social History * Smoker: former Smoker Alcohol: Denies Drugs: denies A-FIB/CHADSVASC A-FIB History Current/History of A-Fib/PAF?: No Review of Systems Constitutional: Denies: Chills, Fever, Night Sweats Eyes: Denies: Pain, Vision change ENT: Denies: Head Aches, Ear Pain, Dysphagia Skin: Denies: Rash, Lesions, Breakdown Pulmonary: Denies: Dyspnea, Cough Cardiovascular: Denies: Chest Pain, Palpitations, Orthopnea, Paroxysmal Noc. Dyspnea, Lt Headedness Gastrointestinal: Denies: Nausea, Vomiting, Abdominal Pain, Diarrhea Genitourinary: Denies: Dysuria, Frequency, Incontinence, Retention Musculoskeletal: Reports: Joint Pain (left hip) Neurological: Denies: Weakness, Numbness, Change in speech, Confusion Physical Examination General Exam: Positive: Alert, Cooperative, No Acute Distress Eye Exam: Positive: PERRLA, Conjunctiva & lids normal, EOMI; Negative: Sclera icteric ENT Exam: Positive: Atraumatic, Mucous membr. moist/pink, Pharynx Normal Neck Exam: Positive: Supple; Negative: JVD, thyromegaly Chest Exam: Positive: Clear to auscultation, Normal air movement Heart Exam: Positive: Rate Normal, Regular Rhythm, Normal S1, Normal S2; Negative: Murmurs, Rubs Abdomen Exam: Positive: Normal bowel sounds, Soft; Negative: Tenderness, Hepatospenomegaly Extremity Exam: Positive: Normal pulses, Tenderness (tenderness in the left hip on the external aspect. ); Negative: Clubbing, Cyanosis, Edema Skin Exam: Positive: Other skin issue (dry rough) Neuro Exam: Positive: Normal Speech, Normal Tone, Sensation Intact Vital Signs Vital Signs Label Value Date Time Patient Temperature 98.0 degrees F 09/08/19 1800 Temperature Source Oral 09/08/19 1800 Pulse 84 09/08/19 1800 Respiratory Rate 16 bpm 09/08/19 1800 Blood Pressure Assessment 153/69 (97) 09/08/19 1800 Bedside Pulse Oximetry 97 % 09/08/19 1800 Item Value Date Time Oxygen Delivery Method Room Air 09/08/19 1800 Assessment/Plan 74 funmilayo old female has be having left hip pain with difficulty in baring weight in that leg for the past 3 weeks. SHe had a stres fracture in the left knee in December and has been using a walker since then. About 4 to 5 weeks ago she started walking independently not needing the walker. # weeks ago she woke up in the middle of the night to go to the bathroom and could not bear weight on that leg. Pateint was still able to walk holding on to things and limping and was using over the counter pain medications. Pain was about 6/10 located in the left hip , dull aching in type with no radiation. She went to see Ortho on Friday and had a bone scan done which showed possible fracture in the left femoral neck. She was recalled today to go back to the ortho office and underwent and MRI of left hip which showed a definite fracture. Patient was sent to the hospital for admission with [facility] for surgery today. Hospitalist was consulted for preop clearance and management of medical commorbidities. Preop clearance for left hip surgery for left hip femoral neck fracture No fall or trauma, possibly stress fracture EKG LBBB, labs reviewed Has > 4 METS physical activity. No h/o DM or CAD or CVA or TIA or CKD or PVD. Low cardiac risk for the proposed procedure Patient medically optimized for the procedure NPO, IVF, bed rest. Left femoral Neck fracture Planned for Surgery today Anxiety and depression continue home meds GERD continue home meds COPD continue umedicilidium inhalor home albuterol prn. Plan / VTE VTE Prophylaxis Ordered?: Yes STEW RUIZ MD Sep 08, 2019 15:00
[2019-09-08] MEDS: D5W/0.9% SODIUM CHLORIDE 1,000 ML IV SCH ×2 (16:29→21:17)
[2019-09-08] MEDS ORDERED: TIZA2TAB4 PO (16:37)
[2019-09-08] MEDS ORDERED: BUPR300T34 PO (16:37)
[2019-09-08] MEDS ORDERED: MELO7.5T35 PO (16:37)
[2019-09-08] MEDS ORDERED: FAMO20TA PO (16:37)
[2019-09-08 18:00] VITALS: BP 153/69
[2019-09-08] MEDS ORDERED: fentaNYL 100 MCG/2 ML INJECTION (J3010) As Ordered ONE ×2 (18:26→19:45)
[2019-09-08] MEDS ORDERED: MIDAZOLAM INJ 2 MG/2 ML VIAL (J2250) As Ordered ONE (18:26)
[2019-09-08] MEDS ORDERED: ONDANSETRON 4MG/2ML VIAL (J2405) As Ordered ONE (19:05)
[2019-09-08] MEDS ORDERED: dexameTHASONE 4 MG/ML 1ML VIAL (J1100) As Ordered ONE (19:05)
[2019-09-08] MEDS ORDERED: LIDOCAINE 2% INJ 100 MG/5 ML SDV (FOR ANES.) As Ordered ONE (19:06)
[2019-09-08] MEDS ORDERED: PROPOFOL 200 MG/20 ML VIAL As Ordered ONE (19:06)
[2019-09-08] MEDS: fentaNYL 100 MCG/2 ML INJECTION (J3010) IV PRN ×4 (19:45→20:00)
--- NOTE | 2019-09-08 19:50 | REP ---
Three fluoroscopic images: 09/08/2019. Indication: Intraoperative/procedural guidance. Findings: Surgical fixation of the left femoral neck fracture is present with the hardware intact and well seated. No acute fracture/new fracture is detected. Please see operative/procedural report for details. Impression: Fluoroscopy provided for operative/procedural guidance. Fluoroscopy time was 2 minutes and 19 seconds. Electronically Signed by Guy Hudson DO 09/08/2019 07:41 P
[2019-09-08] MEDS ORDERED: PERCOCET 5MG/325MG TAB PO PRN (20:15)
[2019-09-08] MEDS ORDERED: MORPHINE 10 MG/ML 1ML VIAL (J2270) IV PRN (20:15)
[2019-09-08] MEDS ORDERED: ONDANSETRON 4MG/2ML VIAL (J2405) IV PRN ×2 (20:15→23:00)
[2019-09-08] MEDS ORDERED: LR 1,000 ML IV SCH (20:15)
[2019-09-08] MEDS ORDERED: PERCOCET 5MG/325MG TAB As Ordered ONE (20:18)
[2019-09-08] MEDS: ceFAZolin SOD 1 GM in D5W MINI-BAG PLUS 50 ML IV SCH (21:16)
[2019-09-08] MEDS: FAMOTIDINE 20 MG TAB PO SCH (21:16)
[2019-09-08] MEDS: GABAPENTIN 400 MG CAP PO SCH (21:16)
[2019-09-08 21:35] VITALS: BP 158/72
[2019-09-08 21:49] VITALS: BP 157/52
[2019-09-08] MEDS ORDERED: MORPHINE 2 MG/ML 1ML VIAL (J2270) IV PRN (22:30)
[2019-09-08] MEDS ORDERED: oxyCODONE 5MG TAB PO PRN (22:30)
[2019-09-08 22:42] VITALS: BP 126/58
[2019-09-08] MEDS: oxyCODONE 5MG TAB PO PRN (23:19)
[2019-09-08 23:40] VITALS: BP 130/62
[2019-09-09 00:30] VITALS: BP 132/65
[2019-09-09 02:00] VITALS: BP_SYST 125; BP_SYST 142; BP_DIAS 70; BP_DIAS 76
[2019-09-09] MEDS: ceFAZolin SOD 1 GM in D5W MINI-BAG PLUS 50 ML IV SCH (05:18)
[2019-09-09 06:02] VITALS: BP 140/70
[2019-09-09 07:44] LABS: BLOOD UREA NITROGEN 9 MG/DL (7-18); CALCIUM LEVEL 8.5 MG/DL (8.8-10.2); CARBON DIOXIDE LEVEL 28 MEQ/L (21-32); CHLORIDE LEVEL 108 MEQ/L (98-107); CREATININE FOR GFR 0.91 MG/DL (0.55-1.30); GLOMERULAR FILTRATION RATE > 60.0 (>39); GLUCOSE, FASTING 130 MG/DL (70-100); POTASSIUM SERUM 4.1 MEQ/L (3.5-5.1); SODIUM LEVEL 142 MEQ/L (136-145)
[2019-09-09] MEDS ORDERED: TIOTROPIUM INHALER/CAPSULE (SPIRIVA) INH SCH (08:00)
[2019-09-09] MEDS ORDERED: XARE10TA PO (08:23)
[2019-09-09] MEDS ORDERED: OXYC-517 PO (08:23)
[2019-09-09] MEDS: MOM 30ML SUSPENSION UDC PO SCH ×2 (09:00→09:26)
[2019-09-09] MEDS ORDERED: MIRALAX *UNIT DOSE* 17GM PACKET PO SCH (09:00)
[2019-09-09] MEDS ORDERED: buPROPion **XL** TABLET 150MG (WELLBUTRIN XL) PO SCH (09:00)
[2019-09-09] MEDS ORDERED: FLUoxetine 20 MG CAP PO SCH (09:00)
[2019-09-09] MEDS: FAMOTIDINE 20 MG TAB PO SCH (09:26)
[2019-09-09] MEDS: oxyCODONE 5MG TAB PO PRN (09:27)
[2019-09-09] MEDS: GABAPENTIN 400 MG CAP PO SCH (09:27)
--- NOTE | 2019-09-09 12:05 | IPNPDOC ---
Subjective Date Seen The patient was seen on 09/09/19. Subjective Chief Complaint/HPI Feeling really good today, has been out of bed and walked to the bathroom and got up on bed by herself. pain is very well controlled. Objective Physical Examination General Exam: Positive: Alert, Cooperative, No Acute Distress Eye Exam: Positive: PERRLA, Conjunctiva & lids normal, EOMI; Negative: Sclera icteric ENT Exam: Positive: Atraumatic, Mucous membr. moist/pink, Pharynx Normal Neck Exam: Positive: Supple; Negative: JVD, thyromegaly Chest Exam: Positive: Clear to auscultation, Normal air movement Heart Exam: Positive: Rate Normal, Regular Rhythm, Normal S1, Normal S2; Negative: Murmurs, Rubs Abdomen Exam: Positive: Normal bowel sounds, Soft; Negative: Tenderness, Hepatospenomegaly Extremity Exam: Positive: Normal pulses, Tenderness (tenderness in the left hip on the external aspect. ); Negative: Clubbing, Cyanosis, Edema Skin Exam: Positive: Other skin issue (dry rough) Neuro Exam: Positive: Normal Speech, Normal Tone, Sensation Intact Assessment /Plan Assessment 74 funmilayo old female has be having left hip pain with difficulty in baring weight in that leg for the past 3 weeks. SHe had a stres fracture in the left knee in December and has been using a walker since then. About 4 to 5 weeks ago she started walking independently not needing the walker. # weeks ago she woke up in the middle of the night to go to the bathroom and could not bear weight on that leg. Pateint was still able to walk holding on to things and limping and was using over the counter pain medications. Pain was about 6/10 located in the left hip , dull aching in type with no radiation. She went to see Ortho on Friday and had a bone scan done which showed possible fracture in the left femoral neck. She was recalled today to go back to the ortho office and underwent and MRI of left hip which showed a definite fracture. Patient was sent to the hospital for admission with planned surgical fixation. Hospitalist was consulted for preop clearance and management of medical comorbidities. Left femoral Neck fracture s/p percutaneous pinning on 09/09/19 pain control and dvt prophylaxis as per ortho Anxiety and depression continue home meds GERD continue home meds COPD continue umedicilidium inhalor home albuterol prn. Plan/VTE VTE Prophylaxis Ordered?: Yes Plan Activity: Encourage Ambulation VS, I&O, 24H, Fishbone Vital Signs/I&O Vital Signs Date Time Temp Pulse Resp B/P (MAP) Pulse Ox O2 Delivery O2 Flow Rate FiO2 09/09/19 09:57 18 09/09/19 06:02 97.1 77 140/70 (93) 97 Nasal Cannula 2.0 I&O- Last 24 Hours up to 6 AM 09/09/19 06:00 Intake Total 1020 ml Balance 1020 ml Laboratory Data 24H LABS Laboratory Tests 2 09/08/19 15:09: Nucleated Red Blood Cells % (auto) 0.0, Anion Gap 5L, Glomerular Filtration Rate > 60.0, Calcium Level 9.2 09/09/19 06:53: Anion Gap 6L, Glomerular Filtration Rate > 60.0, Calcium Level 8.5L CBC/BMP Laboratory Tests 09/08/19 15:09 09/09/19 06:53 STEW RUIZ MD Sep 09, 2019 12:05
[2019-09-09] MEDS ORDERED: RIVAROXABAN 10 MG TAB (XARELTO) PO SCH (18:00)
--- NOTE | 2019-09-10 01:08 | ECGEPIP ---
[facility] Test Date: 2019-09-08 Pat Name: ENE JUDGE Department: Room: [place] [address] Gender: Female Highway Truck Driver: DYAN : 1945 Requested By: STEW RUIZ Order Number: [id number] Reading MD: Rafy Walter Measurements Intervals [place] Rate: 73 P: 43 SD: 199 QRS: -34 QRSD: 149 T: 62 QT: 413 QTc: 456 Interpretive Statements NORMAL SINUS RHYTHM LEFT AXIS DEVIATION LEFT BUNDLE-BRANCH BLOCK PRIOR TRACING ON 12/11/2016 AND 03/23/2015, NO SIGNIFICANT CHANGES. LEFT BUNDLE- BRANCH BLOCK IS NEW Electronically Signed on 09-10-2019 1:07:45 EST by Rafy Walter
--- NOTE | 2019-09-10 07:25 | RO ---
DATE OF PROCEDURE: 09/08/2019 PREOPERATIVE DIAGNOSIS: Left femoral neck fracture, nondisplaced. POSTOPERATIVE DIAGNOSIS: Left femoral neck fracture, nondisplaced. PROCEDURE: Left open reduction, internal fixation of femoral neck. SURGEON: Kenneth Arambula MD [employer] CONSULTANT: None. ANESTHESIA: General. PREOPERATIVE ANTIBIOTICS: 2 grams of Ancef. BLOOD LOSS: 20 mL COMPLICATIONS: None. INDICATION: 74-year-old female who suffered a femoral neck stress fracture. This was picked up on MRI due to chronic pain, at which point we had the hospitalist directly admit the patient for operative intervention to prevent displacement of the hip. Consent was obtained. Discussed the risks and benefits including, but not limited to, infection, damage to surrounding structures, incomplete relief, and need for further surgery. Patient expressed understanding and agreement with the plan. OPERATIVE DESCRIPTION: Patient was brought back in the operating room (OR) in the supine position and underwent general anesthesia, at which point patient was placed on the fracture table. The left hip was prepped and draped in the usual fashion with a sterile curtain, at which point we had time-out to confirm site, side, and surgery. We then had x-ray confirming location for incision. We made a longitudinal incision about 3 cm, dissected down to the femur, at which point we utilized x-ray for placement of three threaded pins inferior calcar, along the inferior neck, and then at anterior and posterior superior femoral neck. These were confirmed on AP and lateral x-rays. We measured the two superior pins to be 75 mm, and the inferior screw was measured to be 85, at which point we drilled the femoral cortex and then inserted partially threaded 6.5 screws. Confirmed placement on AP and lateral, at which point we irrigated the wound thoroughly, closed with #2-0 Vicryl and jennifer for the skin, removed the K-wires prior to this, and then we dressed the incision with gauze and Tegaderm. Patient was extubated and taken to postanesthesia care unit (PACU) in stable condition. POSTOPERATIVE PLAN: Patient will be weightbearing as tolerated, get Surgical Care Improvement Project (SCIP) antibiotics, and hopefully discharge on postoperative day #1 assuming pain is controlled and patient is ambulating well.
--- NOTE | 2019-09-10 07:50 | CR ---
DATE OF CONSULTATION: 09/08/2019 CHIEF COMPLAINT: Left hip pain. HISTORY: Patient presented today to my clinic after having an MRI result demonstrating a femoral neck fracture, nondisplaced. This is a 74-year-old patient who has had progressive left hip pain to the point where she is unable to bear weight. She says the pain is 6 out of 10 and is located deep in the posterior aspect of the hip. It radiates down the thigh. She has gotten to the point where she can no longer ambulate. It is made worse with any sort of range of motion, alleviated only with rest. She denies any falls or any fevers, chills, nausea, or vomiting. She had been worked up in the past for low back pain for the cause of this pain, until eventually MRI was obtained that demonstrated this femoral neck fracture. Denies any fevers, chills, nausea, or vomiting. Complete 10-system review is notable for pertinent positives and negative in history of present illness (HPI). All other systems negative. ALLERGIES: No known drug allergies. HOME MEDICINE: - bupropion - fluoxetine - gabapentin - lactobacillus - meloxicam - ranitidine - ropinirole - sucralfate - umeclidinium bromide PAST MEDICAL HISTORY: Gastroesophageal reflux disease (GERD). Anxiety/depression. Chronic obstructive pulmonary disease (COPD). Diverticulosis. Lumbar central stenosis. Restless legs. Low back pain. SURGICAL HISTORY: Tiffany fundoplasty. Esophageal dilatation. Cholecystectomy. Bilateral thumb and elbow surgeries. Lumbar disc surgery. Bilateral knee replacements. L4-5 spinal fusion. SOCIAL HISTORY: Patient denies any smoking, alcohol, or drugs. PHYSICAL EXAMINATION: Patient is awake, alert, and oriented. Well dressed. Appropriate affect. Breathing unlabored in room air. Normocephalic, atraumatic. BILATERAL UPPER EXTREMITIES: No tenderness to palpation. Full active range of motion shoulder, elbows, and wrists without any pain. Skin is intact. Radial pulse 2+, regular rate. Sensation intact to light touch in superficial sensory branch of radial nerve, median nerve, ulnar nerve. Positive anterior interosseous nerve (AIN), posterior interosseous nerve (PIN), and ulnar motor nerve function. Radial pulse 2+, regular rate. RIGHT LOWER EXTREMITY: No tenderness to palpation. Negative log roll. Full range of motion in the knee and ankle without any pain or discomfort. Positive extensor hallucis longus (EHL), flexor hallucis longus (FHL), tibia, and gastroc motor function. Sensation intact to light touch superficial peroneal, deep peroneal, sural, saphenous, tibia distributions. Posterior tibial pulse 2+, regular rate. LEFT LOWER EXTREMITY: Pain with hip range of motion and positive log roll. Positive EHL, FHL, tibia, and gastroc motor function. Tender to palpation about the left hip. Sensation intact to light touch superficial peroneal, deep peroneal, sural, saphenous, and tibia distribution. Skin intact. Posterior tibial pulse 2+, regular rate. MRI reviewed demonstrating a nondisplaced subcapital femoral neck fracture. DIAGNOSIS: This is a 74-year-old female who suffered a left-sided stress femoral neck fracture that is now complete. Fortunately, it is reduced and in acceptable alignment. Therefore, we consulted the hospitalists for admission and will arrange for left hip open reduction, internal fixation. We obtained consent in the office, discussed the risks and benefits including, but not limited to, damage to surrounding structures, infection, malunion, nonunion. Patient had previous hip arthritis so she may not have incomplete relief, but we will work on her to get this done as soon as possible to prevent displacement. She will be weightbearing as tolerated afterwards with Surgical Care Improvement Project (SCIP) antibiotics. She has already seen medicine, had complete preoperative clearance, and she is low cardiac risk and currently nothing by mouth.
--- NOTE | 2019-09-16 19:53 | DSES ---
DATE OF ADMISSION: 09/08/2019 DATE OF DISCHARGE: 09/09/2019 ADMISSION DIAGNOSIS: Left hip femoral neck fracture. OTHER DIAGNOSES: 1. Gastroesophageal reflux disease. 2. Anxiety. 3. Depression. 4. Chronic obstructive pulmonary disease. 5. Diverticulosis. 6. Lumbar central canal stenosis. 7. Restless leg. 8. Low back pain. DISCHARGE DIAGNOSIS: Left femoral neck fracture status post left open reduction internal fixation of femoral neck. OPERATION PERFORMED: Left open reduction, internal fixation of femoral neck. HISTORY: This is a 74-year-old female patient who was admitted to the hospital after left femoral neck fracture was found on MRI. She consented for left femoral neck open reduction, internal fixation with Dr. Kenneth Arambula. HOSPITAL COURSE: The patient was admitted on the day of surgery and underwent a left femoral neck open reduction, internal fixatio, which was uneventful. She did well in her postoperative. Hospital course was without complications. She was up with physical therapy per their protocol, weightbearing as tolerated on the left lower extremity. She will follow deep vein thrombosis (DVT) prophylaxis per protocol and resume her preoperative medications and diet along with oral pain medications for pain control. She was given instructions to include, but not limited to, wound monitoring and activity modifications. She will followup in our office in 10-14 days for surgical followup. Please refer to the medical record for further details
== END 2019-09-09 11:25 | disposition home or self-care (01) | DRG 482 ==
LOC: M MS5PR 14:38
PROVIDERS: ADMIT Orthopaedic Surgery Hand Surgery; ATTEND Orthopaedic Surgery Hand Surgery
PROC: 0SSB04Z Reposition Left Hip Joint with Internal Fixation Device, Open Approach (ICD-10-PCS; principal; 2019-09-08 19:00)
DX: S72.002A Fracture of unspecified part of neck of left femur, initial encounter for closed fracture (principal); K21.9 Gastro-esophageal reflux disease without esophagitis; F41.9 Anxiety disorder, unspecified; F32.9 Major depressive disorder, single episode, unspecified; J44.9 Chronic obstructive pulmonary disease, unspecified; K57.30 Diverticulosis of large intestine without perforation or abscess without bleeding; G25.81 Restless legs syndrome; M54.5 Low back pain; Z79.899 Other long term (current) drug therapy; W18.30XA Fall on same level, unspecified, initial encounter; Y92.009 Unspecified place in unspecified non-institutional (private) residence as the place of occurrence of the external cause

== ENCOUNTER → 2020-07-19 | Outpatient (CLI) | payer MEDICARE, OTHER ==
[~2020-07-19] MED LIST changes: +BUPR300T92 PO; +FAMO20TA PO; +MELO7.5T35 PO; +OXYC-517 PO; +TIZA2TAB6 PO; +XARE10TA PO
[2020-07-19 12:58] LABS: BLOOD UREA NITROGEN 19 MG/DL (7-18); CREATININE FOR GFR 0.83 MG/DL (0.55-1.30); GLOMERULAR FILTRATION RATE > 60.0 (>39)
== END ==
LOC: M WUC 10:08
PROVIDERS: ATTEND Physician Assistant
DX: M51.37 Other intervertebral disc degeneration, lumbosacral region (principal)

== ENCOUNTER → 2020-09-29 | Outpatient (CLI) | payer MEDICARE, OTHER ==
--- NOTE | 2020-09-29 14:58 | REP ---
INDICATION: INTERVERTEBRAL DD LUMBAR W/ PELVIS PAIN ? FX'S. COMPARISON: Comparison whole body bone scan September 06, 2019. Comparison lumbar spine MRI study July 25, 2020.. TECHNIQUE: 21.8 mCi of technetium 99 M MDP is injected and standard 3 phase imaging of the lower lumbar and pelvic region is acquired. FINDINGS: Anterior and posterior flow study is unremarkable. Blood pool images show increased uptake in a vertically oriented bilateral pattern through the upper sacrum on posterior and posterior oblique images. Delayed scan images demonstrate and H shaped pattern of increased uptake with vertical increased uptake through each side of the upper sacral segments and horizontal uptake across the mid sacrum. This pattern of increased uptake in the sacrum is characteristic of sacral insufficiency fracture. I do not see sacral insufficiency fracture on the July 25, 2020 stem RI images however only the very uppermost sacrum is included in the field of view. There is uptake in bilateral kidneys and the urinary bladder. Mild degenerative uptake is seen in the lumbar spine. No evidence of lumbar spine fracture. The previously noted fracture related uptake across the femoral neck on the left is no longer apparent. This is consistent with healing after the left femoral neck was pinned. IMPRESSION: Scintigraphic findings indicative of sacral insufficiency fracture with bilateral areas of increased uptake. Mild degenerative uptake is seen in the lumbar spine. Previously noted fracture related uptake in the left femoral neck has healed. <Electronically signed by Malvin Jacobo > 09/29/20 [id number]
== END ==
LOC: M RAD 11:00
PROVIDERS: ATTEND Orthopaedic Surgery
DX: M51.37 Other intervertebral disc degeneration, lumbosacral region (principal)
CPT/HCPCS: 78315; A9503

== ENCOUNTER → 2020-10-17 | Outpatient (CLI) | payer MEDICARE, OTHER ==
[2020-10-17 11:59] LABS: BASO % 0.4 % (0.0-1.0); EOS # 0.2 10^3/uL (0.0-0.5); EOS % 2.6 % (0.0-3.0); HEMATOCRIT 35.5 % (36.0-47.0); HEMOGLOBIN 10.7 g/dl (12.0-15.5); LYMPH # 2.2 10^3/uL (1.5-5.0); LYMPH % 28.9 % (24.0-44.0); MEAN CORPUSCULAR HEMOGLOBIN 29.9 pg (27.0-33.0); MEAN CORPUSCULAR HGB CONC 30.1 g/dl (32.0-36.5); MEAN CORPUSCULAR VOLUME 99.2 fl (80.0-96.0); MONO # 0.8 10^3/uL (0.0-0.8); MONO % 9.8 % (0.0-5.0); NEUTROPHILS # 4.5 10^3/uL (1.5-8.5); NEUTROPHILS % 57.9 % (36.0-66.0); PLATELET COUNT, AUTOMATED 271 10^3/uL (150-450); RED BLOOD COUNT 3.58 10^6/uL (4.00-5.40); WHITE BLOOD COUNT 7.7 10^3/uL (4.0-10.0)
[2020-10-17 12:51] LABS: ALBUMIN 3.6 GM/DL (3.2-5.2); BILIRUBIN,DIRECT 0.2 MG/DL (0.0-0.2); BILIRUBIN,TOTAL 0.6 MG/DL (0.2-1.0); FREE T4 0.83 NG/DL (0.76-1.46); THYROID STIMULATING HORMONE 1.65 uIU/ML (0.358-3.740); TOTAL PROTEIN 6.6 GM/DL (6.4-8.2)
== END ==
LOC: M WUC 09:33
PROVIDERS: ATTEND Orthopaedic Surgery
DX: S32.19XA Other fracture of sacrum, initial encounter for closed fracture (principal); X58.XXXA Exposure to other specified factors, initial encounter; Y92.89 Other specified places as the place of occurrence of the external cause; Y93.89 Activity, other specified; Y99.8 Other external cause status; Z79.899 Other long term (current) drug therapy

== ENCOUNTER → 2020-10-24 | Outpatient (CLI) | payer MEDICARE, OTHER ==
--- NOTE | 2020-10-24 10:16 | DEXAMM ---
INDICATION: S32.19XA FX OF SACRUM/R/O OSTEOPOROSIS. Status post left hip replacement. Lumbar spine fusion. COMPARISON: None. TECHNIQUE: Bone density was measured using dual-energy x-ray absorptionmetry (DEXA). FINDINGS: AP SPINE L1-L3 BMD 1.027 g/cm2 Young Adult T-Score -1.3 Age Matched Z-Score 0.5. RT FEMUR, TOTAL BMD 0.786 g/cm2 Young Adult T-Score -1.8 Age Matched Z-Score 0.0. RT NECK BMD 0.821 g/cm2 Young Adult T-Score -1.6 Age Matched Z-Score 0.4. IMPRESSION: There is low bone density of the spine. There is low bone density of the right hip. FOLLOW-UP: Recommendation for the next bone density exam: 2 years. <Electronically signed by Malvin Jacobo > 10/24/20 [id number]
== END ==
LOC: M WHC 09:26
PROVIDERS: ATTEND Orthopaedic Surgery
DX: Z13.820 Encounter for screening for osteoporosis (principal); S32.19XA Other fracture of sacrum, initial encounter for closed fracture; X58.XXXA Exposure to other specified factors, initial encounter; Y92.9 Unspecified place or not applicable; Z96.642 Presence of left artificial hip joint; M43.26 Fusion of spine, lumbar region

== ENCOUNTER → 2020-11-03 | Outpatient (CLI) | payer MEDICARE, OTHER ==
[~2020-11-03] MED LIST changes: -BUPR150T3 PO; +BUPR150T4 PO; +TIZA1TAB12 PO; -TIZA2TAB6 PO
[2020-11-03 15:52] LABS: BLOOD UREA NITROGEN 17 MG/DL (7-18); CALCIUM LEVEL 8.9 MG/DL (8.8-10.2); CARBON DIOXIDE LEVEL 33 MEQ/L (21-32); CHLORIDE LEVEL 106 MEQ/L (98-107); CREATININE FOR GFR 0.89 MG/DL (0.55-1.30); GLOMERULAR FILTRATION RATE > 60.0 (>39); GLUCOSE, FASTING 96 MG/DL (70-100); POTASSIUM SERUM 4.2 MEQ/L (3.5-5.1); SODIUM LEVEL 141 MEQ/L (136-145)
== END ==
LOC: M WUC 10:46
PROVIDERS: ATTEND Internal Medicine Endocrinology, Diabetes & Metabolism
DX: M81.0 Age-related osteoporosis without current pathological fracture (principal)

== ENCOUNTER 2020-11-08 13:32 | Outpatient (CLI) | payer MEDICARE, OTHER ==
[~2020-11-08] VITALS: Ht 167.6 cm; Wt 70.3 kg
[2020-11-08 13:35] VITALS: BP 130/87
[2020-11-08] MEDS ORDERED: ZOLEDRONIC ACID 5 MG in IV 1 EA IV ONE (14:00)
[2020-11-08 14:45] VITALS: BP 136/75
== END 2020-11-08 14:45 | disposition home or self-care (01) ==
LOC: M INFU 13:32
PROVIDERS: ATTEND Internal Medicine Endocrinology, Diabetes & Metabolism
DX: M81.0 Age-related osteoporosis without current pathological fracture (principal)
CPT/HCPCS: 96365; J3489

== ENCOUNTER → 2021-02-12 | Outpatient (CLI) | payer MEDICARE, OTHER ==
[~2021-02-12] MED LIST changes: +BUPR150T12 PO; -BUPR150T4 PO
--- NOTE | 2021-02-12 15:26 | REP ---
INDICATION: ULCER RT LOWER EXTREMITY COMPARISON: None. TECHNIQUE: Real time compression and duplex Doppler interrogation of the right lower extremity deep venous system is performed. FINDINGS: The right common femoral, superficial femoral and popliteal veins are fully compressible with transducer pressure and demonstrate normal spontaneous and phasic flow, without evidence of deep venous thrombosis. Evaluation for venous reflux is performed. There is reflux in the greater saphenous vein at the saphenofemoral junction with a duration of 4 seconds, AP diameter 5 mm, at the midthigh level duration 6 seconds, AP diameter 5 mm and at the level of the knee duration 6 seconds and AP diameter 4 mm. Venous collateral vessels also demonstrate reflux. Reflux is also seen in the common femoral vein with trace reflux in the mid superficial femoral vein. There is no reflux in the popliteal vein or lesser saphenous vein, the lesser saphenous vein measures 1 mm. There is an anterior accessory greater saphenous vein measuring 3 mm, without reflux. IMPRESSION: No evidence of deep venous thrombosis of the right lower extremity femoral popliteal venous system. Greater saphenous vein reflux as discussed above. <Electronically signed by Erick Sullivan > 02/12/21 [id number]
== END ==
LOC: M RAD 13:40
PROVIDERS: ATTEND Surgery
DX: L97.911 Non-pressure chronic ulcer of unspecified part of right lower leg limited to breakdown of skin (principal); I87.2 Venous insufficiency (chronic) (peripheral); M79.604 Pain in right leg

== ENCOUNTER → 2021-02-20 | Outpatient (POV) | payer MEDICARE, OTHER ==
[~2021-02-20] VITALS: Ht 167.6 cm; Wt 68.2 kg
[2021-02-20 10:32] VITALS: BP 146/70
--- NOTE | 2021-02-21 10:01 | IRCOV ---
[facility] IR Consult Office Visit IR Consult Office Visit DATE: February 20, 2021 REASON FOR CONSULTATION/CHIEF COMPLAINT: Venous stasis ulcer right lower extremity. HISTORY OF PRESENT ILLNESS: 76-year-old nondiabetic female presents for right lower extremity venous stasis ulcer. Patient reports this ulcer has been present for greater than 3 months. It was much larger before but has gradually decreased in size under the care of wound care. She does describe right lower extremity swelling for a couple of years which is worse at the end of the day. She denies intermittent claudication, rest pain or pain with leg elevation. She denies prior deep vein thrombosis. She denies prior vein procedures. Patient denies chest pain, shortness of breath, orthopnea or paroxysmal nocturnal dyspnea. She denies prior cold leg, gangrene or amputations. ALLERGIES: Please see below. HOME MEDICATIONS: Please see below. PAST MEDICAL HISTORY: COPD Anxiety Neuropathy Acid reflux PAST SURGICAL HISTORY: Multiple back and joint surgeries. Esophageal wrap 2009 Gallbladder removal 2018 FAMILY HISTORY: Mother suffered with varicose veins. SOCIAL HISTORY: Quit smoking 20 years ago. Denies alcohol or drugs. REVIEW OF SYSTEMS: Otherwise negative. PHYSICAL EXAMINATION: VITAL SIGNS: Please see below. GENERAL APPEARANCE: Appears well. Comfortable at rest. HEENT: No scleral icterus. RESPIRATORY: Normal breathing at rest. CARDIOVASCULAR: Normal rate. ABDOMEN: Soft nontender. EXTREMITIES: Right lower extremity: Edema to the thigh. Right lower extremity swelling greater than left lower extremity. Redness of the anterior tibia. Skin shiny and hairless. Ulceration right anterior colbert. Hemosiderin deposition. Skin temperature normal. Femoral pulse 2+ popliteal pulse plus DP P DP 2+ PT negative. Calf soft nontender. Motor and sensation intact. Left lower extremity: Shiny red skin over the tibia. Skin cracked and dry. Hemosiderin deposition. No open weeping wound. Temperature normal. Femoral pulse 2+ popliteal pulse 1+ DP 2+ PT negative. Dry flaky skin. Calf soft nontender. NEUROLOGICAL: Alert and oriented. PSYCHIATRIC: Appropriate to circumstance. LABORATORY DATA: 10/17/2020 hemoglobin 10.7 hematocrit 35.5 WBC 7.7 platelets 271 11/03/2020 sodium 141 potassium 4.2 BUN 17 creatinine 0.89 IMAGING: I personally reviewed the right lower extremity standing venous reflux study performed 02/12/2021. There is right greater saphenous vein dilation and reflux greater than 0.5 seconds. There is no right lesser saphenous vein reflux. ASSESSMENT/PLAN: 76-year-old nondiabetic female with right lower extremity venous stasis ulcer with positive right greater saphenous vein reflux. I agree patient would benefit from EVLT therapy. We discussed the risks and benefits of the procedure and patient would like to to proceed. We'll schedule the patient for right lower extremity EVLT. She would also benefit from left lower extremity venous reflux study to evaluate for reflux as she is also symptomatic in the left lower extremity. This will be scheduled for a later date. I spent 45 minutes reviewing patient's records, imaging and in consultation with the patient. Thank you for this referral. Cc Marine Piedra Allergies Coded Allergies: No Known Allergies (Verified , 12/24/16) Home Medications Scheduled Bupropion HCl (Bupropion Xl), 300 MG PO DAILY, (Reported) Famotidine (Famotidine), 20 MG PO BID, (Reported) Fluoxetine Hcl (Fluoxetine HCl), 40 MG PO DAILY, (Reported) Gabapentin (Gabapentin), 400 MG PO QID, (Reported) Lactobacillus Acidophilus (Florajen), 1 CAP PO DAILY, (Reported) Meloxicam (Meloxicam), 7.5 MG PO BID, (Reported) Scheduled PRN Albuterol Sulfate (Ventolin Hfa), 2 PUFF INH Q4H PRN for wheezing, (Reported) Diclofenac Sodium (Diclofenac Sodium), 1 APLCT TOP QID PRN for PAIN, (Reported) Hydrocodone/Acetaminophen (Hydrocodone-Acetamin 10-325 mg), 1 TAB PO QID PRN for PAIN, (Reported) Tizanidine HCl (Tizanidine HCl), 2 MG PO TID PRN for MUSCLE SPASMS, (Reported) VS, I&O, 24H, Fishbone Vital Signs/I&O Vital Signs Date Time Temp Pulse Resp B/P (MAP) Pulse Ox O2 Delivery O2 Flow Rate FiO2 02/20/21 10:32 98.1 73 20 146/70 (95) 95 Room Air ONELIA FUENTES MD February 21, 2021 10:01
== END ==
LOC: M IRPOV 10:16
PROVIDERS: ATTEND Radiology Diagnostic Radiology
DX: I87.2 Venous insufficiency (chronic) (peripheral) (principal); L97.219 Non-pressure chronic ulcer of right calf with unspecified severity; Z79.899 Other long term (current) drug therapy; Z87.891 Personal history of nicotine dependence

== ENCOUNTER → 2021-03-12 | Outpatient (CLI) | payer MEDICARE, OTHER ==
[~2021-03-12] MED LIST changes: +GABA-283 PO; -GABA-845 PO; +LIDOCAINE 1% MDV 20ML VIAL As Ordered ONE; +LIDOCAINE 2% MDV 20ML VIAL As Ordered ONE; +MIDAZOLAM INJ 2MG/2ML VIAL (J2250 PER 1MG) As Ordered ONE; +PROMETHAZINE INJ 25 MG/ML VIAL (J2550) As Ordered ONE; +diphenhydrAMINE 50MG/ML VIAL (J1200) As Ordered ONE; +fentaNYL 100 MCG/2 ML INJECTION (J3010) As Ordered ONE
[2021-03-12 17:00] VITALS: BP 139/63
--- NOTE | 2021-03-14 13:24 | IRPON ---
IR Postoperative Note Date Of Procedure: March 12, 2021 Time Of Procedure: 16:00 IR Postoperative Note IR Endovenous laser treatment for right leg varicose vein. IR Ultrasound of the right leg. IR Tumescent anesthesia under ultrasound guidance. IR Moderate sedation. Clinical information: Right leg varicose veins, GSV reflux and nonhealing ulcers. Physician: Dr. Mejía. Procedure: The patient was advised of the benefits, risks and alternatives of the procedure and informed consent was obtained. The time-out was performed with verification of the patient's name, MRN, site of procedure and type of procedure to be performed. The patient was positioned in the supine position on the table. The site was prepped and draped in the usual sterile fashion. Moderate sedation was performed by the physician including the presence of an independent trained RN who assisted in monitoring the patient's level of consciousness and physiologic status. Following the administration of fentanyl and Versed , the physician spent 90 minutes of continuous face to face time with the patient. Ultrasound of the right lower extremity demonstrates dilated right greater sa phenous vein with greater than 0.5 seconds reflux. The access site was identified with ultrasound and anesthetized with lidocaine. The right greater saphenous vein was accessed under ultrasound guidance at the distal thigh, using a micro introducer needle. An 018 cope wire was advanced into the vein. Incision at the access site was made using a scalpel. The needle was removed and an access catheter was advanced over the wire under ultrasound guidance to > 2.5 centimeters from the saphenofemoral junction. The wire was removed and the laser fiber was advanced through the catheter under ultrasound guidance and positioned with the tip located 2.5 cm from the saphenous femoral junction. Tumescent anesthesia was then injected under ultrasound guidance along the entire length of the vein to be treated. Repeat ultrasound of the saphenofemoral junction was used to confirm positioning of the tip of the laser back 2.5 cm from junction. The patient was positioned in Trendelenburg. The laser was then activated and under ultrasound guidance used to laser the Right greater saphenous vein back to the access point. Simultaneous manual compression was applied to the treated vein. Treatment: Wattage: 7. Time: 165 seconds. Pullback rate 1 cm every 7 seconds. Total Energy deposited 1154 joules. Treatment 50 joules per centimeter of vein. The fiber, catheter and sheath were removed, pressure held and hemostasis achieved. A sterile dressing was applied to the site. Compression dressing was then applied to the leg, from ankle to groin. The patient tolerated the procedure well and was returned to the PRU in stable condition. EBL: < 5 ml. Complications: None. Impression: 1. Ultrasound demonstrates dilated right greater saphenous vein with greater than 0.5 seconds reflux. 2. Successful right greater saphenous vein ablation with laser. 3. Compression dressing applied from ankle to groin. Patient to return in 1 week for follow up ultrasound at which time the compression dressing will be switched to stockings. Thank you this referral. Cc ONELIA Olmos MD March 14, 2021 13:24
== END ==
LOC: M IRPRO 13:00
PROVIDERS: ATTEND Radiology Diagnostic Radiology
DX: I83.019 Varicose veins of right lower extremity with ulcer of unspecified site (principal); I87.2 Venous insufficiency (chronic) (peripheral)
CPT/HCPCS: 36478; 76940; 99152; 99153; J1200; J2250; J3010

== ENCOUNTER → 2021-03-20 | Outpatient (CLI) | payer MEDICARE, OTHER ==
[~2021-03-20] MED LIST changes: -LIDOCAINE 1% MDV 20ML VIAL As Ordered ONE; -LIDOCAINE 2% MDV 20ML VIAL As Ordered ONE; -MIDAZOLAM INJ 2MG/2ML VIAL (J2250 PER 1MG) As Ordered ONE; -PROMETHAZINE INJ 25 MG/ML VIAL (J2550) As Ordered ONE; -diphenhydrAMINE 50MG/ML VIAL (J1200) As Ordered ONE; -fentaNYL 100 MCG/2 ML INJECTION (J3010) As Ordered ONE
--- NOTE | 2021-03-20 12:36 | REP ---
INDICATION: POST EVLT RT LEG COMPARISON: None. TECHNIQUE: Sullivan scale and color Doppler evaluation using linear high frequency transducer. FINDINGS: Ultrasound examination of the right lower extremity deep venous structures from the common femoral vein through the calf/ankle to include the peroneal, and tibial veins demonstrates normal compressibility flow and wave patterns in response to respiration and augmentation. There is no evidence for deep venous thrombosis. Contralateral CFV is patent and normal. Greater saphenous vein is thrombosed beginning 3.6 cm from junction with common femoral vein and consistent with prior EVLT. IMPRESSION: No evidence for deep venous thrombosis. As above <Electronically signed by Bj Kathleen > 03/20/21 0308
== END ==
LOC: M RAD 11:49
PROVIDERS: ATTEND Radiology Diagnostic Radiology
DX: I83.811 Varicose veins of right lower extremity with pain (principal)

== ENCOUNTER → 2021-03-27 | Outpatient (POV) | payer MEDICARE, OTHER ==
[~2021-03-27] VITALS: Ht 167.6 cm; Wt 68.2 kg
[2021-03-27 08:23] VITALS: BP 163/70
--- NOTE | 2021-03-28 12:51 | IRPN ---
[facility] IR Progress Note IR Progress Note DATE: Mar 27, 2021 FOLLOW-UP: Ms. goldman is now status post right lower extremity EVLT for nonhealing right lower extremity venous stasis ulcers. She states her right leg feels much better than preprocedure. The swelling has gone down immensely. The skin is healed up. She is able to walk on her right leg much more comfortably now. ON EXAMINATION: Right lower extremity without significant edema. Ankles are now visible and palpable. Red skin dryness superficially on the tibia with no open wound. IMPRESSION: Good results status post right lower extremity EVLT. Patient would benefit from left lower extremity ultrasound to evaluate for saphenous vein reflux and we will order this. Thank you for this referral. Cc Marine Piedra Allergies Coded Allergies: No Known Allergies (Verified , 12/24/16) VS,Fishbone, I+O VS, Fishbone, I+O Vital Signs Date Time Temp Pulse Resp B/P (MAP) Pulse Ox O2 Delivery O2 Flow Rate FiO2 03/27/21 08:23 97.8 72 20 163/70 (101) 95 Room Air ONELIA FUENTES MD Mar 28, 2021 12:51
== END ==
LOC: M IRPOV 08:12
PROVIDERS: ATTEND Radiology Diagnostic Radiology
DX: Z48.812 Encounter for surgical aftercare following surgery on the circulatory system (principal)

== ENCOUNTER → 2021-04-04 | Outpatient (CLI) | payer MEDICARE, OTHER ==
--- NOTE | 2021-04-04 11:58 | REP ---
INDICATION: VARICOSE VEINS. COMPARISON: None. TECHNIQUE: Multiple ultrasonographic images of the deep venous structures of the left lower extremity were obtained from the inguinal ligament to the ankle. Venous compression techniques, color doppler imaging, and augmentation techniques were also obtained where appropriate. As per the ACR guidelines the anterior tibial vein can not be effectively evaluated. Only compression techniques in the calf on the peroneal and posterior tibial veins was attempted/performed. Additionally, a left-sided deep vein reflux study was performed. FINDINGS: There is no abnormal echogenic material seen within any of the visualized deep venous structures that would suggest acute thrombosis. Coaptation is unremarkable throughout. Doppler interrogation shows an expected response to respiratory variability and augmentation in the thigh. Compression techniques in the calf showed no abnormality. The color flow images show what appears to be a normal vascular pattern throughout the thigh. Minimal reflux was seen in the common femoral vein An anterior accessory greater saphenous vein was present the AP dimension of which measured 1.9 mm. Reflux was seen in the greater saphenous vein at the saphenous femoral junction of 1.7 seconds duration the AP dimension of which measured 4.8 mm. No reflux was seen in the greater saphenous vein at the mid thigh the AP dimension of which measured 4.1 mm. Reflux was seen in the greater saphenous vein at the knee of 5.4 seconds duration the AP dimension of which measured 2.4 mm. No reflux was seen in any portion of the superficial femoral vein. No reflux was seen in the popliteal vein. No reflux was seen in the lesser saphenous vein the AP dimension of which measured 2.6 mm. IMPRESSION: 1. There is no ultrasonographic evidence of deep venous thrombosis involving any of the visualized deep venous structures of the left lower extremity as described above. 1. Positive deep vein reflux study as described above. <Electronically signed by Steven Whitaker > 04/04/21 2090
== END ==
LOC: M RAD 10:21
PROVIDERS: ATTEND Radiology Diagnostic Radiology
DX: I83.892 Varicose veins of left lower extremity with other complications (principal)

== ENCOUNTER → 2021-05-04 | Outpatient (CLI) | payer MEDICARE, OTHER ==
[2021-05-04 17:36] LABS: BASO # 0.1 10^3/uL (0.0-0.2); BASO % 0.8 % (0.0-1.0); EOS # 0.2 10^3/uL (0.0-0.5); HEMATOCRIT 35.1 % (36.0-47.0); HEMOGLOBIN 10.4 g/dl (12.0-15.5); LYMPH # 2.1 10^3/uL (1.5-5.0); LYMPH % 28.3 % (24.0-44.0); MEAN CORPUSCULAR HEMOGLOBIN 30.5 pg (27.0-33.0); MEAN CORPUSCULAR HGB CONC 29.6 g/dl (32.0-36.5); MEAN CORPUSCULAR VOLUME 102.9 fl (80.0-96.0); MONO # 0.8 10^3/uL (0.0-0.8); MONO % 10.6 % (2.0-8.0); NEUTROPHILS # 4.3 10^3/uL (1.5-8.5); NEUTROPHILS % 57.9 % (36.0-66.0); PLATELET COUNT, AUTOMATED 238 10^3/uL (150-450); RED BLOOD COUNT 3.41 10^6/uL (4.00-5.40); WHITE BLOOD COUNT 7.5 10^3/uL (4.0-10.0)
[2021-05-04 18:01] LABS: ALBUMIN 3.6 GM/DL (3.2-5.2); BILIRUBIN,TOTAL 0.6 MG/DL (0.2-1.0); CALCIUM LEVEL 8.5 MG/DL (8.8-10.2); CREATININE FOR GFR 0.98 MG/DL (0.55-1.30); GLOMERULAR FILTRATION RATE 58.7 (>39); POTASSIUM SERUM 4.4 MEQ/L (3.5-5.1); TOTAL PROTEIN 6.7 GM/DL (6.4-8.2)
== END ==
LOC: M WUC 13:38
PROVIDERS: ATTEND Physician Assistant Medical
DX: R10.13 Epigastric pain (principal)

== ENCOUNTER → 2021-05-11 | Outpatient (CLI) | payer MEDICARE, OTHER ==
[2021-05-11 17:20] LABS: FREE T4 0.79 NG/DL (0.76-1.46); PERCENT SATURATION 19.7 % (13.2-45.0); THYROID STIMULATING HORMONE 0.628 uIU/ML (0.358-3.740)
[2021-05-11 17:21] LABS: FOLATE 8.4 NG/ML (>5.4)
== END ==
LOC: M WUC 13:50
PROVIDERS: ATTEND Physician Assistant Medical
DX: D64.9 Anemia, unspecified (principal)

== ENCOUNTER → 2021-05-30 | Outpatient (CLI) | payer MEDICARE, OTHER ==
[~2021-05-30] MED LIST changes: +PROHANCE 279.3MG/ML 15ML VIAL As Ordered ONE
--- NOTE | 2021-05-30 22:45 | REPVR ---
PROCEDURE INFORMATION: Exam: MR Lumbar Spine Without and With Contrast Exam date and time: 05/30/2021 10:30 AM Age: 76 years old Clinical indication: Low back pain; Prior surgery; Surgery date: 6+ months; Additional info: Ddd lumbar region w/ fusion TECHNIQUE: Imaging protocol: Multiplanar magnetic resonance images of the lumbar spine without and with intravenous contrast. Contrast material: PROHANCE; Contrast volume: 13 ml; Contrast route: INTRAVENOUS (IV); COMPARISON: MRI-LS SPINE W/O FOLL WITH CON 11/23/2018 2:10 PM FINDINGS: Chronic postoperative changes compatible with posterior instrumented fusion and decompression at L4-L5. Multilevel Modic type 1 edematous degenerative endplate change. No cord compression. No abnormal cord signal. Conus medullaris terminates at the L1 level. No abnormal enhancement in the lumbar spine. Partial fatty atrophy of posterior paravertebral musculature from L3 through L5. L1-L2: Broad-based disc bulge and facet hypertrophy cause mild bilateral foraminal narrowing. No significant canal narrowing. L2-L3: Broad-based disc bulge and facet hypertrophy cause mild right and moderate left foraminal narrowing. No significant canal narrowing. L3-L4: Broad-based disc bulge and facet hypertrophy cause moderate bilateral foraminal narrowing. No significant canal narrowing. L4-L5: Status post posterior fusion and decompression. No significant canal or foraminal narrowing. L5-S1: No significant canal or foraminal narrowing. IMPRESSION: Multilevel chronic postoperative and spondylotic changes of the lumbar spine, as detailed above. Electronically signed by: Jayesh Desir On 05/30/2021 22:44:47 PM
== END ==
LOC: M RAD 09:14
PROVIDERS: ATTEND Physician Assistant
DX: M51.37 Other intervertebral disc degeneration, lumbosacral region (principal)
CPT/HCPCS: 72158; A9576

== ENCOUNTER → 2021-07-04 | Outpatient (CLI) | payer MEDICARE, OTHER ==
[~2021-07-04] MED LIST changes: -PROHANCE 279.3MG/ML 15ML VIAL As Ordered ONE
[2021-07-04 12:04] LABS: PLATELET COUNT, AUTOMATED 230 10^3/uL (150-450)
[2021-07-04 12:14] LABS: INR 0.92; PROTHROMBIN TIME 12.8 SECONDS (12.7-14.5)
[2021-07-04 12:15] LABS: PARTIAL THROMBOPLASTIN TIME 32.6 SECONDS (25.9-37.0)
[2021-07-04 12:28] LABS: COLLAGEN EPINEPHRINE 173 SECONDS (74-162)
[2021-07-04 12:46] LABS: COLLAGEN ADP 104 SECONDS (56-103)
== END ==
LOC: M WUC 09:46
PROVIDERS: ATTEND Physician Assistant
DX: M51.36 Other intervertebral disc degeneration, lumbar region (principal)

== ENCOUNTER → 2021-07-16 | Outpatient (CLI) | payer MEDICARE, OTHER ==
[2021-07-16 09:16] LABS: COLLAGEN EPINEPHRINE 110 SECONDS (74-162)
== END ==
LOC: M LAB 08:35
PROVIDERS: ATTEND Physical Medicine & Rehabilitation
DX: Z01.812 Encounter for preprocedural laboratory examination (principal)

== ENCOUNTER → 2021-08-29 | Outpatient (CLI) | payer MEDICARE, OTHER ==
[~2021-08-29] MED LIST changes: +ALEN70TA82 PO; +FAMO40TA3 PO; +FURO20TA2 PO
== END ==
LOC: M LABSMTC 12:35
PROVIDERS: ATTEND Anesthesiology
DX: Z01.818 Encounter for other preprocedural examination (principal); Z11.52 Encounter for screening for COVID-19

== ENCOUNTER 2021-09-03 11:18 | Day surgery (SDC) | payer MEDICARE, OTHER ==
[~2021-09-03] VITALS: Ht 167.6 cm; Wt 70.8 kg
[~2021-09-03 11:18] MED LIST changes: +NS 1,000 ML IV ONE
--- OUTSIDE RECORDS SUMMARY | 2021-09-03 11:23 | CCD | Continuity of Care Document ---
Author Author Madonna COLIN MD Organization Unknown Address [address] [place] [address], [address] [place] [address] Phone [phone] Care Team Providers Care Supervisor Pig Machine Name Role Phone Callum Chun MD AUTM [phone] Problems Description No Active Problems Social History Type Date Description Comments Sex Unknown ETOH Use Occasionally consumes alcohol Tobacco Use Start: Unknown End: Unknown Patient is a former smoker Tobacco Use Start: Unknown Quit 20 years ago/ 1 pack a day Allergies, Adverse Reactions, Alerts Description No Known Drug Allergies Medications Active Medications SIG Qnty Indications Ordering Provide r Date Durolane 60mg/3ML Prsy lt knee mkm/hd 02/07/21 3ml Nicolas Ma MD 02/07/2021 Lidoderm 5% Patches use as directed on 12 hours off 12 hours up to 3 patches a day 180units M80.08xA Jaylen Colin MD 08/22/2020 Euflexxa 20mg/2ML Soln Prefill Syr sonia nikhil knee #1 mkm/tf nikhil knee euflexxa #2 05/03/2020 mkm/rs nikhil knee#3 MKM/TF Nicolas Ma MD 04/26/2020 Amoxicillin 500mg Tablets take 4 tablets by mouth 1 hour prior to arrival time for procedure. 8tabs Tommy Lee MD 03/21/2020 Meloxicam 7.5mg Tablets 1 by mouth twice a day 60tabs Kenneth Arambula MD 020 Medrol 4mg Tablets dose william, take as directed on sheet 1tabs M80.08xA Jose Justin MD 08/03/2019 Tizanidine HCL 2mg Tablets take one tablet by mouth every 8 hours as needed maximum daily dose = 4 270tabs S46. 012A Jaylen Colin MD 07/13/2019 Gabapentin 400mg Capsules take one capsule by mouth four times a day 360caps Jaylen Colin MD Ropinirole HCL 0.25mg Tablets Take One To Two Tablets By Mouth Once Daily AT Bedtime 60tabs Frankie Colin MD 12/03/[address] 1 by mouth every day Unknown Ranitidine HCL 150mg Capsules 1 by mouth twice a day Unknown Hydrocodone-Acetaminophen 10-325mg Tablets 1 by mouth every 6 hours as needed pain U nknown Fluoxetine HCL 40mg Capsules take one capsule by mouth every day in the morning Unknow n Bupropion HCL ER (XL) 300mg Tablets ER 24HR 1 by mouth every day Unknown Meloxicam 7.5mg Tablets 1 by mouth every day Unknown Immunizations Description No Information Available Vital Signs Date Vital Result Comment 06/07/2021 2:45pm Height 63 inches 5'3" Weight 152.12 lb BMI (Body Mass Index) 26.9 kg/m2 10/06/2020 1:38pm Body Temperature 97.5 F Results Test Acquired Date Facility Test Result H/L Range Note Laboratory test finding 07/04/2021 [facility] [address] [place] [address] (315)- - Platelet Count, Automated 230 10 Normal 150-450 Prothrombin Time/Inr 07/04/2021 [facility] [address] [place] [address] (315)- - Prothrombin Time 12.8 seconds Normal 12.7-14.5 Inr 0.92 Normal 1 Laboratory test finding 07/04/2021 [facility] [address] [place] [address] (315)- - Partial Thromboplastin Time 32.6 seconds Normal 25.9-3 7.0 Platelet Function Analysis 07/04/2021 [facility] [address] [place] [address] (315)- - Collagen Epinephrine 173 seconds High 74-162 2 Laboratory test finding 07/04/2021 [facility] [address] [place] [address] (409)- - Collagen Adp 104 seconds High 56-103 3 Laboratory test finding 06/19/2021 In House Covid Rapid Testing NEGATIVE 1 THERAPUTIC HUMAN INR VALUES INDICATIONS NORMAL RANGES PROPHYLAXIS/TREATMENT OF: VENOUS THROMBOSIS 2.0-3.0 PULMONARY EMBOLISM 2.0-3.0 PREVENTION OF SYSTEMIC EMBOLISM FROM: TISSUE HEART VALVES 2.0-3.0 ACUTE MYOCARDIAL INFARCTION 2.0-3.0 VALVULAR HEART DISEASE 2.0-3.0 ATRIAL FIBRILLATION 2.0-3.0 MECHANICAL VALVES(HIGH RISK) 2.5-3.5 RECURRENT MYOCARDIAL INFARCTION 2.5-3.5 2 Results may be affected by p latelet counts less than 150,000/mL or hematocrits less than 35%. If COL/EPI is NORMAL, COL/ADP is not performed. Result Interpretation: COL/EPI COL/ADP NORMAL NORMAL NORMAL ASA ABNORMAL NORMAL vWD ABNORMAL NORMAL GLANZMANN'S ABNORMAL ABNORMAL THROMBASTHENIA POSSIBLE DRUG ABNORMAL ABNORMAL EFFECT 3 Results may be affected by p latelet counts less than 150,000/mL or hematocrits less than 35%. Procedures Date Code Description Status 07/16/2021 98030 Moderate Sedation Se rvices; Same Phys Intl 15 Mins; PT >= 5 Years Completed 07/16/2021 34127 Epidurography Radiological Super vision & Interpretation Completed 07/16/2021 38052 NJX Aa&/STRD TFRML Epi Lumbar/Sa cral 1 Level Completed 06/07/2021 52330 Office/Outpatient Established Hi gh MDM 40-54 Min Completed 06/07/2021 19184 Inject/Drain Joint/Bursa Major C ompleted 05/09/2021 87210 Office/Outpatient Established Mo d MDM 30-39 Min Completed 05/09/2021 98233 X-Ray Spine Lumbosacral Complete Inc Bending Views Min Of 6 Completed 02/07/2021 62889 Office/Outpatient Established Lo w MDM 20-29 Min Completed 02/07/2021 66901 X-Ray Pelvis Ap Only 1-2 Views C ompleted 02/07/2021 01614 Inject/Drain Joint/Bursa Major C ompleted Medical Devices Description No Information Available Encounters Type Date Location Provider Dx Diagnosis Office Visit 06/07/2021 2:15p Miguel Davis P.A. M51.36 Other intervertebral disc degeneration, lumbar region M48.062 Spinal stenosis, lumbar kostas on with neurogenic claudication Z98.1 Arthrodesis status M70.61 Trochanteric bursitis, right hip Office Visit 05/09/2021 5:30p [place] Lyly Larios.A. M51.36 Other intervertebral disc degeneration, lumbar region M48.062 Spinal stenosis, lumbar kostas on with neurogenic claudication Z98.1 Arthrodesis status Assessments Date Code Description Provider 07/16/2021 M51.36 Other intervertebral disc degene ration, lumbar region Jaylen Colin MD 07/11/2021 Z01.818 Encounter for other preprocedura l examination Jaylen Colin MD 07/11/2021 Z01.818 Encounter for other preprocedura l examination Lab 07/11/2021 Z20.828 Contact with and (ramos spected) exposure to other viral communicable diseases Jaylen Colin MD 07/11/2021 Z20.828 Contact with and (ramos spected) exposure to other viral communicable diseases Lab 06/19/2021 Z20.828 Contact with and (ramos spected) exposure to other viral communicable diseases Constantino Davis, P.A. 06/07/2021 M51.36 Other intervertebral disc degene ration, lumbar region Constantino Davis P.A. 06/07/2021 M48.062 Spinal stenosis, lumbar region w ith neurogenic claudication Constantino Davis P.A. 06/07/2021 Z98.1 Arthrodesis status Constantino Álvarez P.A. 06/07/2021 M70.61 Trochanteric bursitis, right hip Constantino Davis, P.A. 05/09/2021 M51.36 Other intervertebral disc degene ration, lumbar region Constantino Davis, P.A. 05/09/2021 M48.062 Spinal stenosis, lumbar region w ith neurogenic claudication Constantino Davis P.A. 05/09/2021 Z98.1 Arthrodesis status Constantino Álvarez P.A. 02/07/2021 M17.12 Unilateral primary osteoarthriti s, left knee Bryce Larios 02/07/2021 M80.08xD Age-related osteopor osis with current pathological fracture, vertebra(e), subsequent encounter for fracture with routine healing Bryce Larios 02/06/2021 M17.11 Unilateral primary osteoarthriti s, right knee Bryce Larios Plan of Treatment Future Appointment(s):* 08/02/2021 2:15 pm - Bryce Larios at [place] 06/07/2021 - Bryce Larios* M51.36 Other intervertebral disc degeneration, lumbar region* Follow up:* with mkm 2 weeks after inj * M48.062 Spinal stenosis, lumbar region with neurogenic claudication * Z98.1 Arthrodesis status * M70.61 Trochanteric bursitis, right hip Functional Status Description No Information Available Mental Status Description No Information Available Referrals Refer to Dr Reason for Referral Status Appt Date Constantino Davis PA KENNETH INJ'S ([id number],& [phone]) NO AUTH REQUIRED TO SURGERY NT Created [address] [place] [address] [phone] Constantino Davis PA RECEIVED WRITTEN APPROVAL FO Aniyah RAI PATCHES 5%.FAXED FORM TO PHARMACY.PASSED TO CHART.TC Created [address] [place] [address] [phone] Constantino Davis PA MRI NO AUTH REQUIRED FOR MRI OF LUMBAR SPINE W/ & W/O ([id number]) TO PARAM OWEN Created [address] [place] [address] [phone] Constantino Davis PA MRI NO AUTH REQUIRED PER NIGEL Vuong FOR MRI OF LUMBAR SPINE W & W/O ([id number]) TO PARAM OWEN Created [address] [place] [address] [phone]
--- OUTSIDE RECORDS SUMMARY | 2021-09-03 11:23 | CCD | Continuity of Care Document ---
Author Author Madonna Robledo Organization Unknown Address [address] [place] [address] [address] [place] [address] Phone [phone] Care Team Providers Care Sales Agent Protective Service Name Role Phone Callum Chun MD [facility] [phone] Problems Description No Active Problems Social History [...] 3 patches a day 180units M80.08xA Jaylen Turk MD 08/22/2020 Euflexxa 20mg/2ML Soln Prefill Syr [...] dose = 4 270tabs S46. 012A Jaylen Turk MD 07/13/2019 Gabapentin 400mg Capsules take one capsule by mouth four times a day 360caps Jaylen Turk MD Ropinirole HCL 0.25mg Tablets Take One To Two Tablets By Mouth Once Daily AT Bedtime 60tabs Frankie Turk MD 12/03/[address] 1 [...] 24HR 1 by mouth every day Unknown 000 Meloxicam 7.5mg Tablets 1 by mouth every day Unknown Immunizations Description No Information Available Vital Signs Date Vital Result Comment 06/07/2021 2:45pm Height 63 inches 5'3" Weight 152.12 lb BMI (Body Mass Index) 26.9 kg/m2 10/06/2020 1:38pm Body Temperature 97.5 F Results Test Acquired Date Facility Test Result H/L Range Note Laboratory test finding 07/04/2021 [facility] [address] [place] [address] (315)- - Platelet Count, Automated 230 10 Normal 150-450 Prothrombin Time/Inr 07/04/2021 [facility] [address] [place] [address] (315)- - Prothrombin Time 12.8 seconds Normal 12.7-14.5 Inr 0.92 Normal 1 Laboratory test finding 07/04/2021 [facility] [address] [place] [address] (315)- - Partial Thromboplastin Time 32.6 seconds Normal 25.9-3 7.0 Platelet Function Analysis 07/04/2021 [facility] [address] [place] [address] (315)- - Collagen Epinephrine 173 seconds High 74-162 2 Laboratory test finding 07/04/2021 [facility] [address] [place] [address] (147)- - Collagen Adp 104 seconds High 56-103 [...] than 35%. Procedures Date Code Description Status 06/07/2021 76358 Office/Outpatient Established Hi gh MDM 40-54 Min Completed 06/07/2021 89467 Inject/Drain Joint/Bursa Major C ompleted 05/09/2021 18262 Office/Outpatient Established Mo d MDM 30-39 Min Completed 05/09/2021 44926 X-Ray Spine Lumbosacral Complete Inc Bending Views Min Of 6 Completed 02/07/2021 08252 Office/Outpatient Established Lo w MDM 20-29 Min Completed 02/07/2021 68317 X-Ray Pelvis Ap Only 1-2 Views C ompleted 02/07/2021 55932 Inject/Drain Joint/Bursa Major C ompleted Medical Devices Description No Information Available Encounters Type Date Location Provider Dx Diagnosis Office Visit 06/07/2021 2:15p Miguel Davis, PSherrieA. M51.36 Other intervertebral disc degeneration, lumbar region M48.062 Spinal stenosis, lumbar kostas on with neurogenic claudication Z98.1 Arthrodesis status M70.61 Trochanteric bursitis, right hip Office Visit 05/09/2021 5:30p [place] Constantino K. Mcelheran, P.A. M51.36 Other intervertebral disc degeneration, lumbar region M48.062 Spinal stenosis, lumbar kostas on with neurogenic claudication Z98.1 Arthrodesis status Assessments Date Code Description Provider 07/11/2021 Z01.818 Encounter for other preprocedura l examination Jaylen Turk MD 07/11/2021 Z01.818 Encounter for other preprocedura l examination Lab 07/11/2021 Z20.828 Contact with and (ramos spected) exposure to other viral communicable diseases Jaylen Turk MD 07/11/2021 Z20.828 Contact with and (ramos spected) exposure to other viral communicable diseases Lab 06/19/2021 Z20.828 Contact with and (ramos spected) exposure to other viral communicable diseases Constantino Davis, P.A. 06/07/2021 M51.36 Other intervertebral disc degene ration, lumbar region Constantino Davis P.A. 06/07/2021 M48.062 Spinal stenosis, lumbar region w ith neurogenic claudication Constantino Davis, P.A. 06/07/2021 Z98.1 Arthrodesis status Constantino Álvarez, P.A. 06/07/2021 M70.61 Trochanteric bursitis, right hip Constantino Davis, P.A. 05/09/2021 M51.36 Other intervertebral disc degene ration, lumbar region Constantino Davis, P.A. 05/09/2021 M48.062 Spinal stenosis, lumbar region w ith neurogenic claudication Constantino Davis, P.A. 05/09/2021 Z98.1 Arthrodesis status Constantino Álvarez, P.A. 02/07/2021 M17.12 Unilateral primary osteoarthriti s, left knee Constantino Davis, P.A. 02/07/2021 M80.08xD Age-related osteopor osis with current pathological fracture, vertebra(e), subsequent encounter for fracture with routine healing Constantino Davis P.A. 02/06/2021 M17.11 Unilateral primary osteoarthriti s, right knee Bryce Larios Plan of Treatment Future Appointment(s):* 08/02/2021 2:15 pm - Bryce Larios at [place] * 07/16/2021 8:40 am - Jaylen Turk MD at Surgery [facility] 06/07/2021 - Bryce Larios* M51.36 Other intervertebral [...] Appt Date Constantino Davis PA KENNETH INJ'S (22430,33820,& 991 52) NO AUTH REQUIRED TO SURGERY NT Created [address] [place] [address] [phone] Constantino Davis PA RECEIVED WRITTEN APPROVAL FO R LIDODERM PATCHES 5%.FAXED FORM TO PHARMACY.PASSED TO CHART.TC Created [facility] [address] [phone] Constantino Davis PA MRI NO AUTH REQUIRED FOR MRI OF LUMBAR SPINE W/ & W/O ([id number]) TO PARAM OWEN Created [address] [place] [address] [phone] Constantino Davis PA MRI NO AUTH REQUIRED PER NIGEL Vuong FOR MRI OF LUMBAR SPINE W & W/O (40270) TO PARAM OWEN Created [address] [place] [address] [phone]
--- OUTSIDE RECORDS SUMMARY | 2021-09-03 11:23 | CCD | Continuity of Care Document ---
Author Author Madonna DAVIS P.A. Organization Unknown Address [address] [place] [address] Phone [phone] Care Team Providers Care Swimming Pool Salesperson Name Role Phone Callum Chun MD [facility] [phone] Problems Description No Active Problems Social History [...] H/L Range Note Laboratory test finding 07/04/2021 [facility] [address] [place] [address] (315)- - Platelet Count, Automated 230 10 Normal 150-450 Prothrombin Time/Inr 07/04/2021 [facility] [address] [place] [address] (315)- - Prothrombin Time 12.8 seconds Normal 12.7-14.5 Inr 0.92 Normal 1 Laboratory test finding 07/04/2021 [facility] [address] [place] [address] (315)- - Partial Thromboplastin Time 32.6 seconds Normal 25.9-3 7.0 Platelet Function Analysis 07/04/2021 [facility] [address] [place] [address] (315)- - Collagen Epinephrine 173 seconds High 74-162 2 Laboratory test finding 07/04/2021 [facility] [address] [place] [address] (219)- - Collagen Adp 104 seconds High 56-103 [...] 35%. Procedures Date Code Description Status 06/07/2021 65890 Office/Outpatient Established Hi gh MDM 40-54 Min Completed 06/07/2021 18716 Inject/Drain Joint/Bursa Major C ompleted 05/09/2021 59561 Office/Outpatient Established Mo d MDM 30-39 Min Completed 05/09/2021 03970 X-Ray Spine Lumbosacral Complete Inc Bending Views Min Of 6 Completed 02/07/2021 71264 Office/Outpatient Established Lo w MDM 20-29 Min Completed 02/07/2021 68225 X-Ray Pelvis Ap Only 1-2 Views C ompleted 02/07/2021 06056 Inject/Drain Joint/Bursa Major C ompleted Medical Devices Description No Information Available Encounters Type Date Location Provider Dx Diagnosis Office Visit 06/07/2021 2:15p Miguel Davis, P.A. M51.36 Other intervertebral disc degeneration, lumbar region M48.062 Spinal stenosis, lumbar kostas on with neurogenic claudication Z98.1 Arthrodesis status M70.61 Trochanteric bursitis, right hip Office Visit 05/09/2021 5:30p [place] Lyly Lraios.ASherrie M51.36 Other intervertebral disc degeneration, lumbar region [...] Constantino Davis P.A. 06/07/2021 Z98.1 Arthrodesis status Lyly Holcomb.ASherrie 06/07/2021 M70.61 Trochanteric bursitis, right hip Constantino Davis P.A. 05/09/2021 M51.36 Other intervertebral disc degene ration, lumbar region Constantino Davis P.A. 05/09/2021 M48.062 Spinal stenosis, lumbar region w ith neurogenic claudication Constantino Davis P.A. 05/09/2021 Z98.1 Arthrodesis status Constantino Álvarez P.A. 02/07/2021 M17.12 Unilateral primary osteoarthriti s, left knee Lyly Larios.A. 02/07/2021 M80.08xD Age-related osteopor osis with current pathological fracture, vertebra(e), subsequent encounter for fracture with routine healing Lyly Larios.ASherrie 02/06/2021 M17.11 Unilateral primary osteoarthriti s, right knee Bryce Larios Plan of Treatment Future Appointment(s):* 08/02/2021 2:15 pm - Bryce Larios at [place] * 07/16/2021 8:40 am - Jaylen Turk MD at Surgery [facility] 06/07/2021 - Constantino Davis, PDeepa.* M51.36 Other intervertebral disc degeneration, lumbar region* Follow up:* with mkm 2 weeks after inj * M48.062 Spinal stenosis, lumbar region with neurogenic claudication * Z98.1 Arthrodesis status * M70.61 Trochanteric bursitis, right hip Functional Status Description No Information Available Mental Status Description No Information Available Referrals Refer to Dr Reason for Referral Status Appt Date Constantino Davis PA KENNETH INJ'S (76611,84547,& 991 52) NO AUTH REQUIRED TO SURGERY NT Created [facility] [place] [address] [phone] Constantino Davis PA RECEIVED WRITTEN APPROVAL FO R LIDODERM PATCHES 5%.FAXED FORM TO PHARMACY.PASSED TO CHART.TC Created [facility] [place] [address] [phone] Constantino Davis PA MRI NO AUTH REQUIRED FOR MRI OF LUMBAR SPINE W/ & W/O ([id number]) TO PARAM OWEN Created [address] [place] [address] [phone] Constantino Davis PA MRI NO AUTH REQUIRED PER NIGEL Vuong FOR MRI OF LUMBAR SPINE W & W/O (56173) TO PARAM OWEN Created [address] [place] [address] [phone]
--- OUTSIDE RECORDS SUMMARY | 2021-09-03 11:23 | CCD | Continuity of Care Document ---
Author Author Madonna Robledo Organization Unknown Address [address] [place] [address] [address] [place] [address] Phone [phone] Care Team Providers Care Self Defense Instructor Name Role Phone Callum Chun MD [facility] [phone] Problems Description No Active Problems Social History [...] H/L Range Note Laboratory test finding 07/04/2021 [facility] [address] [place] [address] (315)- - Platelet Count, Automated 230 10 Normal 150-450 Prothrombin Time/Inr 07/04/2021 [facility] [address] [place] [address] (315)- - Prothrombin Time 12.8 seconds Normal 12.7-14.5 Inr 0.92 Normal 1 Laboratory test finding 07/04/2021 [facility] [address] [place] [address] (315)- - Partial Thromboplastin Time 32.6 seconds Normal 25.9-3 7.0 Platelet Function Analysis 07/04/2021 [facility] [address] [place] [address] (315)- - Collagen Epinephrine 173 seconds High 74-162 2 Laboratory test finding 07/04/2021 [facility] [address] [place] [address] (027)- - Collagen Adp 104 seconds High 56-103 [...] 35%. Procedures Date Code Description Status 06/07/2021 90361 Office/Outpatient Established Hi gh MDM 40-54 Min Completed 06/07/2021 58244 Inject/Drain Joint/Bursa Major C ompleted 05/09/2021 50753 Office/Outpatient Established Mo d MDM 30-39 Min Completed 05/09/2021 84498 X-Ray Spine Lumbosacral Complete Inc Bending Views Min Of 6 Completed 02/07/2021 19055 Office/Outpatient Established Lo w MDM 20-29 Min Completed 02/07/2021 53172 X-Ray Pelvis Ap Only 1-2 Views C ompleted 02/07/2021 93392 Inject/Drain Joint/Bursa Major C ompleted Medical Devices Description No Information Available Encounters Type Date Location Provider Dx Diagnosis Office Visit 06/07/2021 2:15p Miguel Davis, PSherrieA. M51.36 Other intervertebral disc degeneration, lumbar region M48.062 Spinal stenosis, lumbar kostas on with neurogenic claudication Z98.1 Arthrodesis status M70.61 Trochanteric bursitis, right hip Office Visit 05/09/2021 5:30p [place] Constantino K. Mcelheran, P.A. M51.36 Other intervertebral [...] disc degene ration, lumbar region Constantino Davis P.ASherrie 06/07/2021 M48.062 Spinal stenosis, lumbar region w ith neurogenic claudication Constantino Davis P.A. 06/07/2021 Z98.1 Arthrodesis status Luis HolcombASherrie 06/07/2021 M70.61 Trochanteric bursitis, right hip Constantino Davis P.A. 05/09/2021 M51.36 Other intervertebral disc degene ration, lumbar region Constantino Davis P.ASherrie 05/09/2021 M48.062 Spinal stenosis, lumbar region w ith neurogenic claudication Constantino Davis P.A. 05/09/2021 Z98.1 Arthrodesis status Lyly Holcomb.A. 02/07/2021 M17.12 Unilateral primary osteoarthriti s, left knee Luis LariosASherrie 02/07/2021 M80.08xD Age-related osteopor osis with current pathological fracture, vertebra(e), subsequent encounter for fracture with routine healing Luis LariosASherrie 02/06/2021 M17.11 Unilateral primary osteoarthriti s, right knee Bryce Larios Plan of Treatment Future Appointment(s):* 08/02/2021 2:15 pm - Bryce Larios at [place] * 07/16/2021 8:40 am - Jaylen Turk MD at Surgery [facility] 06/07/2021 - Constantino Davis PJoseph* M51.36 Other intervertebral disc degeneration, lumbar region* Follow up:* with mkm 2 weeks after inj * M48.062 Spinal stenosis, lumbar region with neurogenic claudication * Z98.1 Arthrodesis status * M70.61 Trochanteric bursitis, right hip Functional Status Description No Information Available Mental Status Description No Information Available Referrals Refer to Dr Reason for Referral Status Appt Date Constantino Davis PA KENNETH INJ'S (39739,96215,& 991 52) NO AUTH REQUIRED TO SURGERY NT Created [address] [place] [address] [phone] Constantino Davis PA RECEIVED WRITTEN APPROVAL FO R LIDODERM PATCHES 5%.FAXED FORM TO PHARMACY.PASSED TO CHART.TC Created [address] [place] [address] [phone] Constantino Davis PA MRI NO AUTH REQUIRED FOR MRI OF LUMBAR SPINE W/ & W/O ([id number]) TO PARAM OWEN Created [address] [place] [address] [phone] Constantino Davis PA MRI NO AUTH REQUIRED PER NIGEL Vuong FOR MRI OF LUMBAR SPINE W & W/O (36469) TO PARAM OWEN Created [address] [place] [address] [phone]
--- OUTSIDE RECORDS SUMMARY | 2021-09-03 11:23 | CCD | Continuity of Care Document ---
Author Author Madonna DAVIS P.A. Organization Unknown Address [address] [place] [address] Phone [phone] Care Team Providers Care Manager Engagement Name Role Phone Callum Chun MD [facility] [phone] Problems Description No Active Problems Social History Type Date Description Comments Sex Unknown ETOH Use Occasionally consumes alcohol Tobacco Use Start: Unknown End: Unknown Patient is a former smoker Tobacco Use Start: Unknown Quit 20 years ago/ 1 pack a day Allergies and adverse reactions Description No Known Drug Allergies Medications Active [...] Date Facility Test Result H/L Range Note Order 08/03/2021 [facility] [address] [address] [facility] Injections <pending> Laboratory test finding 07/04/2021 [facility] [address] [place] [address] (315)- - Platelet Count, Automated 230 10 Normal 150-450 Prothrombin Time/Inr 07/04/2021 [facility] [address] [place] [address] (315)- - Prothrombin Time 12.8 seconds Normal 12.7-14.5 Inr 0.92 Normal 1 Laboratory test finding 07/04/2021 [facility] [address] [place] [address] (315)- - Partial Thromboplastin Time 32.6 seconds Normal 25.9-3 7.0 Platelet Function Analysis 07/04/2021 [facility] [address] [place] [address] (315)- - Collagen Epinephrine 173 seconds High 74-162 2 Laboratory test finding 07/04/2021 [facility] [address] [place] [address] (315)- - Collagen Adp 104 seconds High 56-103 [...] than 35%. Procedures Date Code Description Status 08/02/2021 38463 Office/Outpatient Established Mo d MDM 30-39 Min Completed 07/16/2021 36047 Moderate Sedation Se rvices; Same Phys Intl 15 Mins; PT >= 5 Years Completed 07/16/2021 03142 Epidurography Radiological Super vision & Interpretation Completed 07/16/2021 65540 NJX Aa&/STRD TFRML Epi Lumbar/Sa cral 1 Level Completed 06/07/2021 78005 Office/Outpatient Established Hi gh MDM 40-54 Min Completed 06/07/2021 57709 Inject/Drain Joint/Bursa Major C ompleted 05/09/2021 62528 Office/Outpatient Established Mo d MDM 30-39 Min Completed 05/09/2021 32169 X-Ray Spine Lumbosacral Complete Inc Bending Views Min Of 6 Completed Medical Devices Description No Information Available Encounters Type Date Location Provider Dx Diagnosis Office Visit 08/02/2021 2:15p Miguel Davis P.A. M51.36 Other intervertebral disc degeneration, lumbar region M48.062 Spinal stenosis, lumbar kostas on with neurogenic claudication Office Visit 06/07/2021 2:15p [place] Constantino Davis P.A. M51.36 Other intervertebral disc degeneration, lumbar region M48.062 Spinal stenosis, lumbar kostas on with neurogenic claudication Z98.1 Arthrodesis status M70.61 Trochanteric bursitis, right hip Office Visit 05/09/2021 5:30p [place] Constantino Davis P.A. M51.36 Other intervertebral disc degeneration, lumbar region M48.062 Spinal stenosis, lumbar kostas on with neurogenic claudication Z98.1 Arthrodesis status Assessments Date Code Description Provider 08/02/2021 M51.36 Other intervertebral disc degene ration, lumbar region Constantino Davis P.A. 08/02/2021 M48.062 Spinal stenosis, lumbar region w ith neurogenic claudication Constantino Davis P.ASherrie 07/16/2021 M51.36 Other intervertebral disc degene ration, lumbar region Jaylen Turk MD 07/11/2021 Z01.818 Encounter for [...] exposure to other viral communicable diseases Constantino Dvais P.A. 06/07/2021 M51.36 Other intervertebral disc degene ration, lumbar region Lyly Larios.A. 06/07/2021 M48.062 Spinal stenosis, lumbar region w ith neurogenic claudication Lyly Larios.A. 06/07/2021 Z98.1 Arthrodesis status Luis HolcombASherrie 06/07/2021 M70.61 Trochanteric bursitis, right hip Luis LariosASherrie 05/09/2021 M51.36 Other intervertebral disc degene ration, lumbar region Bryce Larios 05/09/2021 M48.062 Spinal stenosis, lumbar region w ith neurogenic claudication Bryce Larios 05/09/2021 Z98.1 Arthrodesis status Bryce Holcomb Plan of Treatment 08/02/2021 - Bryce Larios* M51.36 Other intervertebral disc degeneration, lumbar region* Follow up:* f/u after KENNETH inj for results with MKM * M48.062 Spinal stenosis, lumbar region with neurogenic claudication Functional Status Description No Information Available Mental Status Description No Information Available Referrals Refer to Reason for Referral Status Appt Date Constantino Davis PA epidural steroid injections inj's (55815, 00392, & 48437) no authorization required to surgery NT Created [facility] [place] [address] [phone] Constantino Davis PA KENNETH INJ'S (35214,14372,& 991 52) NO AUTH REQUIRED TO SURGERY NT Created [address] [place] [address] [phone] Constantino Davis PA RECEIVED WRITTEN APPROVAL FO [place] DAHLODERM PATCHES 5%.FAXED FORM TO PHARMACY.PASSED TO CHART.TC Created [facility] [place] [address] [phone] Constantino Davis PA MRI NO AUTH REQUIRED FOR MRI OF LUMBAR SPINE W/ & W/O ([id number]) TO PARAM OWEN Created [address] [place] [address] [phone] Constantino Davis PA MRI NO AUTH REQUIRED PER NIGEL Vuong FOR MRI OF LUMBAR SPINE W & W/O (11084) TO PARAM OWEN Created [address] [place], [place] [id number] [place] [id number] [phone]
--- OUTSIDE RECORDS SUMMARY | 2021-09-03 11:23 | CCD | Continuity of Care Document ---
Author Author Madonna DAVIS P.A. Organization Unknown Address [address] [place] [address] Phone [phone] Care Team Providers Care Paper Cone Machine Tender Name Role Phone Callum Chun MD AUTM [phone] Problems Description No Active Problems Social History [...] H/L Range Note Laboratory test finding 07/04/2021 [facility] [address] [place] [address] (315)- - Platelet Count, Automated 230 10 Normal 150-450 Prothrombin Time/Inr 07/04/2021 [facility] [address] [place] [address] (315)- - Prothrombin Time 12.8 seconds Normal 12.7-14.5 Inr 0.92 Normal 1 Laboratory test finding 07/04/2021 [facility] [address] [place] [address] (315)- - Partial Thromboplastin Time 32.6 seconds Normal 25.9-3 7.0 Platelet Function Analysis 07/04/2021 [facility] [address] [place] [address] (315)- - Collagen Epinephrine 173 seconds High 74-162 2 Laboratory test finding 07/04/2021 [facility] [address] [place] [address] (714)- - Collagen Adp 104 seconds High 56-103 [...] 35%. Procedures Date Code Description Status 08/02/2021 71974 Office/Outpatient Established Mo d MDM 30-39 Min Completed 07/16/2021 11104 Moderate Sedation Se rvices; Same Phys Intl 15 Mins; PT >= 5 Years Completed 07/16/2021 13463 Epidurography Radiological Super vision & Interpretation Completed 07/16/2021 56457 NJX Aa&/STRD TFRML Epi Lumbar/Sa cral 1 Level Completed 06/07/2021 15551 Office/Outpatient Established Hi gh MDM 40-54 Min Completed 06/07/2021 00178 Inject/Drain Joint/Bursa Major C ompleted 05/09/2021 08917 Office/Outpatient Established Mo d MDM 30-39 Min Completed 05/09/2021 31679 X-Ray Spine Lumbosacral Complete Inc Bending Views Min Of 6 Completed 02/07/2021 01721 Office/Outpatient Established Lo w MDM 20-29 Min Completed 02/07/2021 59701 X-Ray Pelvis Ap Only 1-2 Views C ompleted 02/07/2021 36443 Inject/Drain Joint/Bursa Major C ompleted Medical Devices Description No Information Available Encounters Type Date Location Provider Dx Diagnosis Office Visit 08/02/2021 2:15p [place] Arnold.A. M51.36 Other intervertebral disc degeneration, lumbar region M48.062 Spinal stenosis, lumbar kostas on with neurogenic claudication Office Visit 06/07/2021 2:15p [place] Arnlod.A. M51.36 Other intervertebral disc degeneration, lumbar region M48.062 Spinal stenosis, lumbar kostas on with neurogenic claudication Z98.1 Arthrodesis status M70.61 Trochanteric bursitis, right hip Office Visit 05/09/2021 5:30p [place] Arnold.A. M51.36 Other intervertebral disc degeneration, lumbar region M48.062 Spinal stenosis, lumbar kostas on with neurogenic claudication Z98.1 Arthrodesis status Assessments Date Code Description Provider 08/02/2021 M51.36 Other intervertebral disc degene ration, lumbar region Constantino Davis P.A. 08/02/2021 M48.062 Spinal stenosis, lumbar region w ith neurogenic claudication Constantino Davis P.A. 07/16/2021 M51.36 Other intervertebral disc degene ration, [...] spected) exposure to other viral communicable diseases Lyly Larios.A. 06/07/2021 M51.36 Other intervertebral disc degene ration, lumbar region Constantino Davis P.A. 06/07/2021 M48.062 Spinal stenosis, lumbar region w ith neurogenic claudication Constantino Davis P.ASherrie 06/07/2021 Z98.1 Arthrodesis status Constantino Álvarez, P.A. 06/07/2021 M70.61 Trochanteric bursitis, right hip Lyly Larios.A. 05/09/2021 M51.36 Other intervertebral disc degene ration, lumbar region Luis LariosA. 05/09/2021 M48.062 Spinal stenosis, lumbar region w ith neurogenic claudication Lyly Larios.A. 05/09/2021 Z98.1 Arthrodesis status Constantino Álvarez, P.A. 02/07/2021 M17.12 Unilateral primary osteoarthriti s, left knee Lyly Larios.A. 02/07/2021 M80.08xD Age-related osteopor osis with current pathological fracture, vertebra(e), subsequent encounter for fracture with routine healing Lyly Larios.ASherrie 02/06/2021 M17.11 Unilateral primary osteoarthriti s, right knee Constantino Davis P.A. Plan of Treatment 08/02/2021 - Bryce Larios* M51.36 Other intervertebral disc degeneration, lumbar region* New Orders:* [facility] Injections, Ordered: 08/02/21 * Follow up:* f/u after poncho inj for results with MKM * M48.062 Spinal stenosis, lumbar region with neurogenic claudication Functional Status Description No Information Available Mental Status Description No Information Available Referrals Refer to Dr Reason for Referral Status Appt Date Constantino Davis PA PONCHO INJ'S ([id number],& [phone]) NO AUTH REQUIRED TO SURGERY NT Created [facility] [place] [address] [phone] Constantino Davis PA RECEIVED WRITTEN APPROVAL FO Aniyah PATEL 5%.FAXED FORM TO PHARMACY.PASSED TO CHART.TC Created [facility] [place] [address] [phone] Constantino Davis PA MRI NO AUTH REQUIRED FOR MRI OF LUMBAR SPINE W/ & W/O ([id number]) TO PARAM OWEN Created [facility] [place] [address] [phone] Constantino Davis PA MRI NO AUTH REQUIRED PER NIGEL Vuong FOR MRI OF LUMBAR SPINE W & W/O ([id number]) TO PARAM OWEN Created [address] [place] [address] [phone]
--- OUTSIDE RECORDS SUMMARY | 2021-09-03 11:23 | CCD | Continuity of Care Document ---
Author Author Madonna DAVIS P.A. Organization Unknown Address [address] [place] [address] Phone [phone] Care Team Providers Care Fly Winder Name Role Phone Callum Chun MD AUTM [phone] Problems Description No Active Problems Social History [...] H/L Range Note Laboratory test finding 07/04/2021 [facility] [address] [place] [address] (315)- - Platelet Count, Automated 230 10 Normal 150-450 Prothrombin Time/Inr 07/04/2021 [facility] [address] [place] [address] (315)- - Prothrombin Time 12.8 seconds Normal 12.7-14.5 Inr 0.92 Normal 1 Laboratory test finding 07/04/2021 [facility] [address] [place] [address] (315)- - Partial Thromboplastin Time 32.6 seconds Normal 25.9-3 7.0 Platelet Function Analysis 07/04/2021 [facility] [address] [place] [address] (315)- - Collagen Epinephrine 173 seconds High 74-162 2 Laboratory test finding 07/04/2021 [facility] [address] [place] [address] (836)- - Collagen Adp 104 seconds High 56-103 [...] 35%. Procedures Date Code Description Status 08/02/2021 19550 Office/Outpatient Established Mo d MDM 30-39 Min Completed 07/16/2021 66937 Moderate Sedation Se rvices; Same Phys Intl 15 Mins; PT >= 5 Years Completed 07/16/2021 18485 Epidurography Radiological Super vision & Interpretation Completed 07/16/2021 12862 NJX Aa&/STRD TFRML Epi Lumbar/Sa cral 1 Level Completed 06/07/2021 30165 Office/Outpatient Established Hi gh MDM 40-54 Min Completed 06/07/2021 97993 Inject/Drain Joint/Bursa Major C ompleted 05/09/2021 39871 Office/Outpatient Established Mo d MDM 30-39 Min Completed 05/09/2021 33700 X-Ray Spine Lumbosacral Complete Inc Bending Views Min Of 6 Completed 02/07/2021 88432 Office/Outpatient Established Lo w MDM 20-29 Min Completed 02/07/2021 05551 X-Ray Pelvis Ap Only 1-2 Views C ompleted 02/07/2021 50317 Inject/Drain Joint/Bursa Major C ompleted Medical Devices Description No Information Available Encounters Type Date Location Provider Dx Diagnosis Office Visit 08/02/2021 2:[place]p [place] 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 M51.36 Other intervertebral disc degeneration, lumbar [...] Appt Date Constantino Davis PA PONCHO INJ'S ([id number],& [phone]) NO AUTH REQUIRED TO SURGERY NT Created [facility] [place] [address] [phone] Constantino Davis PA RECEIVED WRITTEN APPROVAL FO Aniyah PATEL 5%.FAXED FORM TO PHARMACY.PASSED TO CHART.TC Created [facility] [place] [address] [phone] Constantino Davis PA MRI NO AUTH REQUIRED FOR MRI OF LUMBAR SPINE W/ & W/O ([id number]) TO PARAM OWEN Created [facility] [place] [address] [phone] Constantino Davis PA MRI NO AUTH REQUIRED PER NIGEL Vuong FOR MRI OF LUMBAR SPINE W & W/O (10636) TO PARAM OWEN Created [address] [place] [address] [phone]
--- OUTSIDE RECORDS SUMMARY | 2021-09-03 11:23 | CCD | Continuity of Care Document ---
Author Author Madonna DAVIS P.A. Organization Unknown Address [address] [place] [address] Phone [phone] Care Team Providers Care Pile Driver Operator Name Role Phone Callum Chun MD AUTM [phone] Problems Description No Active Problems Social History [...] Result H/L Range Note Laboratory test finding 06/19/2021 In House Covid Rapid Testing <pending> Procedures Date Code Description Status 06/07/2021 57102 Office/Outpatient Established Hi gh MDM 40-54 Min Completed 06/07/2021 94038 Inject/Drain Joint/Bursa Major C ompleted 05/09/2021 24283 Office/Outpatient Established Mo d MDM 30-39 Min Completed 05/09/2021 89913 X-Ray Spine Lumbosacral Complete Inc Bending Views Min Of 6 Completed 02/07/2021 99451 Office/Outpatient Established Lo w MDM 20-29 Min Completed 02/07/2021 86607 X-Ray Pelvis Ap Only 1-2 Views C ompleted 02/07/2021 44986 Inject/Drain Joint/Bursa Major C ompleted 12/26/2020 68377 Office/Outpatient Established Lo w MDM 20-29 Min Completed Medical Devices Description No Information Available Encounters Type Date Location Provider Dx Diagnosis Office Visit 06/07/2021 2:15p [place] Lyly Larios.A. 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 06/07/2021 M51.36 Other intervertebral disc degene [...] Unilateral primary osteoarthriti s, left knee Constantino Davis P.A. 02/07/2021 M80.08xD Age-related osteopor osis with current pathological fracture, vertebra(e), subsequent encounter for fracture with routine healing Lyly Larios.ASherrie 02/06/2021 M17.11 Unilateral primary osteoarthriti s, right knee Bryce Larios 12/26/2020 M17.12 Unilateral primary osteoarthriti s, left knee Bryce Larios Plan of Treatment Future Appointment(s):* 07/11/2021 9:30 am - Lab at [facility] * 07/16/2021 8:40 am - Jaylen Turk MD at [facility] 06/07/2021 - Bryce Larios* M51.36 Other [...] Appt Date Constantino Davis PA KENNETH INJ'S ([id number],[id number],& [phone]) NO AUTH REQUIRED TO SURGERY NT Created [address] [place] [address] [phone] Constantino Davis PA RECEIVED WRITTEN APPROVAL FO R LIDODERM PATCHES 5%.FAXED FORM TO PHARMACY.PASSED TO CHART.TC Created [address] [place] [address] [phone] Constantino Davis PA MRI NO AUTH REQUIRED FOR MRI OF LUMBAR SPINE W/ & W/O ([id number]) TO SHARON OWEN Created [address] [place] [address] [phone] Constantino Davis PA MRI NO AUTH REQUIRED PER NIGEL Vuong FOR MRI OF LUMBAR SPINE W & W/O ([id number]) TO SHARON OWEN Created [address] [place] [address] [phone] Constantino Davis PA Left knee Durolane- No autho rization req. Passing to Sharon Gan for order and appt. Created [address] [place] [address] [phone]
--- OUTSIDE RECORDS SUMMARY | 2021-09-03 11:23 | CCD | Continuity of Care Document ---
Author Author Madonna LINDSEY MD Organization Unknown Address [address] [place] [place] [address] Phone [phone] Care Team Providers Care Piecer Name Role Phone Callum Chun M.D. AUTM [phone] Problems Active Problems Provider Date Chronic obstructive lung disease Kevin Seadejon, D.O. Onset: 06/12/2016 Ex-smoker Kevin Valdez, D.O. Onset: 06/12/2016 Cervical somatic dysfunction Kevin Sears, D.O. Onset: 06/21 Somatic dysfunction of thoracic region Kevin Sears, D.O. O nset: 07/12/2016 Somatic dysfunction of sacroiliac joint Kevin Sears, D.O. Onset: 07/12/2016 Somatic dysfunction of lower limb Kevin Sears, D.O. Onset: 07/12/2016 Somatic dysfunction of lumbar region Kevin Sears, D.O. Ons et: 07/12/2016 Somatic dysfunction of rib Kevin Sears, D.O. Onset: 2015 Acute sinusitis Kevin Seadejon, D.O. Onset: 08/30/2016 Gastroesophageal reflux disease Kevin Sears, D.O. Onset: 0 01/30/2015 Emphysematous bronchitis Kevin Sears, D.O. Onset: 01/31/20 15 Cough Kevin Sears, D.O. Onset: 01/30/2015 Difficulty breathing Kevin Sears, D.O. Onset: 01/30/2015 Somatic dysfunction of head region Kevin Sears, D.O. Onset : 05/28/2017 Somatic dysfunction of pelvic region Kevin Sears, D.O. Ons et: 07/01/2017 Somatic dysfunction of upper limb Kevin Sears, D.O. Onset: 12/29/2018 Shoulder joint pain Kevin Valdez D.O. Onset: 05/26/2019 Social History Type Date Description Comments Sex Unknown ETOH Use Occasionally consumes alcohol Tobacco Use Start: 10/20/74 End: 10/20/99 Patient is a forme r smoker hx 1ppd x 25 years Recreational Drug Use Denies Drug Use Smoking Status Reviewed: 06/18/21 Patient is a former smoker hx 1ppd x 25 years Allergies and adverse reactions Description No Known Drug Allergies Medications Active Medications SIG Qnty Indications Ordering Provide r Date Sucralfate 1gm Tablets Take One Tablet By Mouth Twice A Day 30 Minutes Before Meals 60tabs R10.13 Fede Lindsey MD 2021 Albuterol Sulfate HFA 108(90Base) mcg/Act Aerosol Inhale Two Puffs By Mouth Four Times A Day as Needed 18units Kevin Valdez D.O. 09/19/2020 Spiriva Respimat 2.5mcg/Act Aeroso l 2 puffs every day 4gm J44.9 Kevin Valdez D.O. 04/14/2020 Famotidine 40mg Tablets Take 1 Tablet By Mouth Twice Daily 60tabs Fede Lindsey MD 12/31/2019 Aerochamber Plus Misc as directed w/ hfa Unknown Bupropion HCL ER (XL) 300mg Tablets ER 24HR 1 po qd Unknown Fluoxetine HCL 40mg Capsules 1 po qd Unknown Gabapentin 300mg Capsules 1 tab by mouth four times a day 60caps Unknown Hydrocodone-Acetaminophen 10-325mg Tablets 1 po qid prn Unknown Probiotic Capsule daily Unknown Antacid Liquid Suspension pr n Unknown Symbicort 160-4.5mcg/Act Aerosol Inhale Two Puffs By Mouth Twice A Day 10.2units Kevin Valdez D.O. Tizanidine HCL 4mg Capsules 2-3 daily prn Unknown Immunizations Description No Information Available Vital Signs Date Vital Result Comment 06/18/2021 10:57am BP Systolic 120 mmHg BP Diastolic 60 mmHg Heart Rate 72 /min O2 % BldC Oximetry 93 % Height 66 inches 5'6" Weight 148.00 lb BMI (Body Mass Index) 23.9 kg/m2 [place] Body Weight 130 lb Weight 67.133 kg BSA (Body Surface Area) 1.76 m2 04/11/2021 2:47pm BP Systolic 112 mmHg BP Diastolic 62 mmHg Height 66 inches 5'6" Weight 153.00 lb BMI (Body Mass Index) 24.7 kg/m2 [place]ons Body Weight 130 lb Weight 69.401 kg BSA (Body Surface Area) 1.78 m2 Results Test Acquired Date Facility Test Result H/L Range Note FVL/[place] 06/18/2021 [facility] SEE IMAGE FVC-Pred 3.02 L FVC-Pre 1.86 L FVC-%Pred-Pre 61 L FVC-LLN 2.28 L Fev1-Pred 2.27 L Fev1-Pre 1.12 L Fev1-%Pred-Pre 49 L Fev1-LLN 1.65 L Fev6-Pred 2.88 L Fev6-Pre 1.84 L Fev6-%Pred-Pre 64 L Fev6-LLN 2.15 L Wgi5npy-Pioe 75 % Zxb5ide-Fww 60 % Vwv1ffs-%Pred-Pre 80 % Azs4chd-OWD 65 % Smg2lhb-Mmfc 95 % Lzg5uyz-Enl 99 % Zys4ygd-%Pred-Pre 103 % FEFMax-Pred 5.47 L/E/sec FEFMax-Pre 2.22 L/E/sec FEFMax-%Pred-Pre 40 L/E/sec FEFMax-LLN 3.65 L/E/sec Jdk9801-Nheg 1.73 L/E/sec Jfv1451-Qon 0.54 L/E/sec Qxa3565-%Pred-Pre 31 L/E/sec Brd1232-WDZ 0.41 L/E/sec ExpTime-Pre 6.99 sec Vbu9yra3-Ggyv 78 % Opq1kxl0-Mqr 61 % Ksz3uxl2-%Pred-Pre 77 % Syk1fty0-YEU 69 % Total Iron Binding Capacit 05/11/2021 [facility] Lab [address] [place], [place] [id number] [phone] Iron (Fe) 62 g/dL Normal 50-170 Total Iron Binding Capacity 315 g/dL Normal 250-450 Percent Saturation 19.7 % Normal 13.2-45.0 1 Laboratory test finding 05/11/2021 [facility] Main Lab [address] [place] [address] [phone] Thyroid Stimulating Hormone 0.628 uIU/ML Normal 0. 358-3.740 Free T4 0.79 ng/dL Normal 0.76-1.46 2 Vitamin B12 Level 1464 pg/mL High 247-911 3, 4 Folate 8.4 NG/ML Normal >5.4 5, 6 CBC With Differential 05/04/2021 [facility] Main Lab [address] [place] [address] [phone] White Blood Count 7.5 10 Normal 4.0-10.0 Red Blood Count 3.41 10 Low 4.00-5.40 Hemoglobin 10.4 g/dL Low 12.0-15.5 Hematocrit 35.1 % Low 36.0-47.0 Mean Corpuscular Volume 102.9 fl High 80.0-96.0 Mean Corpuscular Hemoglobin 30.5 pg Normal 27.0-33.0 Mean Corpuscular HGB Conc 29.6 g/dL Low 32.0-36.5 Red Cell Distribution Width 14.6 % High 11.5-14.5 Platelet Count, Automated 238 10 Normal 150-450 Neutrophils % 57.9 % Normal 36.0-66.0 Lymph % 28.3 % Normal 24.0-44.0 [place] % 10.6 % High 2.0-8.0 Eos % 2.0 % Normal 0.0-3.0 Baso % 0.8 % Normal 0.0-1.0 Immature Granulocyte % 0.4 % Normal 0-3.0 Nucleated Red Blood Cell % 0.0 % Normal 0-0 Neutrophils # 4.3 10 Normal 1.5-8.5 Lymph # 2.1 10 Normal 1.5-5.0 [place] # 0.8 10 Normal 0.0-0.8 Eos # 0.2 10 Normal 0.0-0.5 Baso # 0.1 10 Normal 0.0-0.2 7 Comprehensive Metabolic Profil 05/04/2021 [facility] Main Lab [address] [place] [address] [phone] Glucose, Fasting 92 mg/dL Normal 70-100 Blood Urea Nitrogen 17 mg/dL Normal 7-18 Creatinine For GFR 0.98 mg/dL Normal 0.55-1.30 Glomerular Filtration Rate 58.7 Normal >39 8 Sodium Level 142 mEq/L Normal 136-145 Potassium Serum 4.4 mEq/L Normal 3.5-5.1 Chloride Level 109 mEq/L High 98-107 Carbon Dioxide Level 27 mEq/L Normal 21-32 Anion Gap 6 mEq/L Low 8-16 Calcium Level 8.5 mg/dL Low 8.8-10.2 Ast/Sgot 12 U/L Normal 7-37 Alt/SGPT 17 U/L Normal 12-78 Alkaline Phosphatase 77 U/L Normal 45-117 Bilirubin,Total 0.6 mg/dL Normal 0.2-1.0 Total Protein 6.7 GM/DL Normal 6.4-8.2 Albumin 3.6 GM/DL Normal 3.2-5.2 Albumin/Globulin Ratio 1.2 Normal 1.2-2.2 9 Amylase & Lipase 05/04/2021 [facility] Main Lab [address] [place] [id number] [phone] Amylase 34 U/L Normal 25-115 Lipase 75 U/L Normal 73-393 10 1 05/31/21 (May 31) 04:22 PM LINDA CHARLEBOIS Normal. 2 05/31/21 (May 31) 04:22 PM LINDA CHARLEBOIS Thyroid function normal. 3 VITAMIN B12 NORMAL RANGE NORMAL 247 - 911 PG/ML INDETERMINATE 211 - 246 PG/ML DEFICIENT LESS THAN 211 PG/ML 4 05/31/21 (May 31) 04:23 PM LINDA CHARLEBOIS Elevated. Patient states that she receives Vitamin B12 shots routinely every 2 weeks. Will fax results to PCP. 5 FOLATE NORMAL RANGE NORMAL GREATER THAN 5.4 NG/ML INDETERMINATE 3.4-5.4 NG/ML DEFICIENT LESS THAN 3.4 NG/ML 6 05/31/21 (May 31) 04:24 PM LINDA CHARLEBOIS Normal. 7 05/08/21 (FriMay 08) 04:21 PM LINDA CHARLEBOIS Above results noted. Similar to BW completed in 09/2020. Will inform patient. See triage. 8 Units are mL/min/1.73 m2 Chronic Kidney Disease Staging per NKF: Stage I & II GFR >=60 Normal to Mildly Decreased Stage III GFR 30-59 Moderately Decreased Stage IV GFR 15-29 Severely Decreased Stage V GFR <15 Very Little GFR Left ESRD GFR <15 on [employer] 9 05/08/21 (FriMay 08) 04:13 PM LINDA RENTERIA No significant abnormalties. 10 05/08/21 (FriMay 08) 04:09 PM LINDA MARRUFOBOIS Normal. Procedures Date Code Description Status 06/18/2021 07007 Office/Outpatient Established Mo d MDM 30-39 Min Completed 06/18/2021 25840 Spirometry Completed 04/11/2021 08412 Office/Outpatient Established Mo d MDM 30-39 Min Completed 02/28/2021 59488 Office/Outpatient Established Mo d MDM 30-39 Min Completed Medical Devices Description No Information Available Encounters Type Date Location Provider Dx Diagnosis Office Visit 06/18/2021 11:00a [facility] Pulmonary/Thoracic Kevin house D.OSherrie J44.9 Chronic obstructive pulmonary disease, u nspecified Z87.891 Personal history of nicotine dependence Office Visit 04/11/2021 2:30p [facility] Gastroenterology Pra ctice Linda A Heavenlebosharri RPA-C K21.9 Gastro-esophageal reflux dis ease without esophagitis R10.13 Epigastric pain R13.10 Dysphagia, unspecified Office Visit 02/28/2021 1:30p [facility] Gastroenterology Pra ctice Linda A Heavenlebosharri RPA-C K21.9 Gastro-esophageal reflux dis ease without esophagitis R10.13 Epigastric pain R13.10 Dysphagia, unspecified Assessments Date Code Description Provider 06/18/2021 J44.9 Chronic obstructive pulmonary di sease, unspecified Tommy LemonsOSherrie 06/18/2021 Z87.891 Ex-smoker eKvin Valdez D.O. 04/11/2021 K21.9 Gastro-esophageal reflux disease without esophagitis Linda A Bob RPA-C 04/11/2021 R10.13 Epigastric pain Linda A Jono boBRAYAN harrell-C 04/11/2021 R13.10 Dysphagia, unspecified Linda A Charlebosharri, RPA-C 02/28/2021 K21.9 Gastro-esophageal reflux disease without esophagitis LIZ Hamm 02/28/2021 R10.13 Epigastric pain LIZ Brown 02/28/2021 R13.10 Dysphagia, unspecified LIZ Hamm Plan of Treatment Future Appointment(s):* 09/17/2021 9:00 am - LIZ Hamm at [facility] * 09/03/2021 10:05 am - Fede Lindsey MD at [facility] 06/18/2021 - Kevin Valdez D.O.* J44.9 Chronic obstructive pulmonary disease, unspecified * Z87.891 Ex-smoker * * New Labs:* FVL/[place], Ordered: 06/18/21 * Follow up:* Follow up in six months spirometry Functional Status Description No Information Available Mental Status Description No Information Available Referrals Description No Information Available
--- OUTSIDE RECORDS SUMMARY | 2021-09-03 11:24 | CCD | Continuity of Care Document ---
Author Author Madonna DAVIS P.A. Organization Unknown Address [address] [place] [address] Phone [phone] Care Team Providers Care Policy Services Representative Name Role Phone Callum Chun MD AUTM [phone] Problems Description No Active Problems Social History [...] 10/06/2020 1:38pm Body Temperature 97.5 F Results Description No Information Available Procedures Date Code Description Status 05/09/2021 24555 Office/Outpatient Established Mo d MDM 30-39 Min Completed 05/09/2021 52510 X-Ray Spine Lumbosacral Complete Inc Bending Views Min Of 6 Completed 02/07/2021 93929 Office/Outpatient Established Lo w MDM 20-29 Min Completed 02/07/2021 26584 X-Ray Pelvis Ap Only 1-2 Views C ompleted 02/07/2021 18008 Inject/Drain Joint/Bursa Major C ompleted 12/26/2020 10355 Office/Outpatient Established Lo w MDM 20-29 Min Completed 12/13/2020 22199 Office/Outpatient Established Lo w MDM 20-29 Min Completed 12/13/2020 84265 X-Ray Pelvis Ap Only 1-2 Views C ompleted Medical Devices Description No Information Available Encounters Type Date Location Provider Dx Diagnosis Office Visit 05/09/2021 5:30p Miguel Mackheran, P.A. 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 06/07/2021 M48.062 Spinal stenosis, lumbar region w ith neurogenic claudication Constantino Davis, P.A. 06/07/2021 Z98.1 Arthrodesis status Constantino Álvarez, P.A. 05/09/2021 M51.36 Other intervertebral disc degene ration, lumbar region Constantino Davis, P.A. 05/09/2021 M48.062 Spinal stenosis, lumbar region w ith neurogenic claudication Constantino Davis, P.A. 05/09/2021 Z98.1 Arthrodesis status Constantino Álvarez, P.A. 02/07/2021 M17.12 Unilateral primary osteoarthriti s, left knee Constantino Davis, P.A. 02/07/2021 M80.08xD Age-related osteopor osis with current pathological fracture, vertebra(e), subsequent encounter for fracture with routine healing Constantino Davis, P.A. 02/06/2021 M17.11 Unilateral primary osteoarthriti s, right knee Constantino Davis, P.A. 12/26/2020 M17.12 Unilateral primary osteoarthriti s, left knee Constantino Davis, P.A. 12/13/2020 M80.08xD Age-related osteopor osis with current pathological fracture, vertebra(e), subsequent encounter for fracture with routine healing Constantino Davis, P.A. 12/13/2020 Z98.1 Arthrodesis status Constantino Álvarez, P.A. 12/13/2020 M16.0 Bilateral primary osteoarthritis of hip Bryce Larios Plan of Treatment 06/07/2021 - Sophy Larios.* M51.36 Other intervertebral disc degeneration, lumbar region* New Orders:* [facility] Injections, Ordered: 06/07/21 * Follow up:* with [facility] 2 weeks after inj * M48.062 Spinal stenosis, lumbar region with neurogenic claudication * Z98.1 Arthrodesis status Functional Status Description No Information Available Mental Status Description No Information Available Referrals Refer to Reason for Referral Status Appt Date Constantino Davis PA RECEIVED WRITTEN APPROVAL FO R LIDODERM PATCHES 5%.FAXED FORM TO PHARMACY.PASSED TO [facility] Created [address] [place] [address] [phone] Constantino Davis, PA MRI NO AUTH REQUIRED FOR MRI OF LUMBAR SPINE W/ & W/O ([id number]) TO SHARON OWEN Created [facility] [place] [address] [phone] Constantino Davis PA MRI NO AUTH REQUIRED PER NIGEL Vuong FOR MRI OF LUMBAR SPINE W & W/O ([id number]) TO SHARON OWEN Created [address] [place] [address] [phone] Constantino Davis PA Left knee Durolane- No autho rization req. Passing to Sharon Gan for order and appt. Created [address] [place] [address] [phone]
--- OUTSIDE RECORDS SUMMARY | 2021-09-03 11:24 | CCD | Continuity of Care Document ---
Author Author Madonna NAZARIOOSherrie Organization [place] [address] Phone [phone] Care Team Providers Care Sheet Rock Layer Name Role Phone Callum Chun M.D. AUTM [phone] Problems Active Problems Provider Date Chronic obstructive lung disease Kevin Nazario D.O. Onset: 06/12/2016 Ex-smoker Kevin Nazario D.O. Onset: 06/12/2016 Cervical somatic dysfunction Kevin Nazario D.O. Onset: 06/21 Somatic dysfunction of thoracic region Kevin Nazario D.O. O nset: 07/12/2016 Somatic dysfunction of sacroiliac joint Kevin Nazario D.O. Onset: 07/12/2016 Somatic dysfunction of lower limb Kevin Nazario, D.O. Onset: 07/12/2016 Somatic dysfunction of lumbar region Kevin Nazario D.O. Ons et: 07/12/2016 Somatic dysfunction of rib Kevin Nazario D.O. Onset: 2015 Acute sinusitis Kevin Nazario D.O. Onset: 08/30/2016 Gastroesophageal reflux disease Kevin Nazario D.O. Onset: 0 01/30/2015 Emphysematous bronchitis Kevin Nazario D.O. Onset: 01/31/20 15 Cough Kevin Nazario, D.O. Onset: 01/30/2015 Difficulty breathing Kevin Nazario, D.O. Onset: 01/30/2015 Somatic dysfunction of head region Kevin Nazario, D.O. Onset : 05/28/2017 Somatic dysfunction of pelvic region Kevin Nazario D.O. Ons et: 07/01/2017 Somatic dysfunction of upper limb Kevinmanny aNzario, D.O. Onset: 12/29/2018 Shoulder joint pain Kevin Nazario D.O. Onset: 05/26/2019 Social History Type Date Description Comments Sex Unknown ETOH Use Occasionally consumes alcohol Tobacco Use Start: 10/20/74 End: 10/20/99 Patient is a forme r smoker hx 1ppd x 25 years Recreational Drug Use Denies Drug Use Smoking Status Reviewed: 06/18/21 Patient is a former smoker hx 1ppd x 25 years Allergies, Adverse Reactions, Alerts Description No Known Drug Allergies Medications Active Medications SIG Qnty Indications Ordering Provide r Date Sucralfate 1gm Tablets Take One Tablet By Mouth Twice A Day 30 Minutes Before Meals 60tabs R10.13 Fede Lindsey MD 2021 Albuterol Sulfate HFA 108(90Base) mcg/Act Aerosol Inhale Two Puffs By Mouth Four Times A Day as Needed 18units Kevin Nazario D.O. 09/19/2020 Spiriva Respimat 2.5mcg/Act Aeroso l 2 puffs every day 4gm J44.9 Kevin Nazario D.O. 04/14/2020 Famotidine 40mg Tablets Take 1 [...] By Mouth Twice A Day 10.2units Kevin Nazario D.O. Tizanidine HCL 4mg Capsules 2-3 daily prn Unknown Immunizations Description No Information Available Vital Signs Date Vital Result Comment 06/18/2021 10:57am BP Systolic 120 mmHg BP Diastolic 60 mmHg Heart Rate 72 /min O2 % BldC Oximetry 93 % Height 66 inches 5'6" Weight 148.00 lb BMI (Body Mass Index) 23.9 kg/m2 [place] Body Weight 130 lb Weight 67.133 kg BSA (Body Surface Area) 1.76 m2 04/11/2021 2:47pm BP Systolic 112 mmHg BP Diastolic 62 mmHg Height 66 inches 5'6" Weight 153.00 lb BMI (Body Mass Index) 24.7 kg/m2 [place] Body Weight 130 lb Weight 69.401 kg BSA (Body Surface Area) 1.78 m2 Results Test Acquired Date Facility Test Result H/L Range Note FVL/Hero 06/18/2021 [facility] SEE IMAGE FVC-Pred 3.02 L FVC-Pre 1.86 L FVC-%Pred-Pre 61 L FVC-LLN 2.28 L Fev1-Pred 2.27 L Fev1-Pre 1.12 L Fev1-%Pred-Pre 49 L Fev1-LLN 1.65 L Fev6-Pred 2.88 L Fev6-Pre 1.84 L Fev6-%Pred-Pre 64 L Fev6-LLN 2.15 L Ran6kxn-Rhoh 75 % Drv6ilb-Ghd 60 % Kzv4dvf-%Pred-Pre 80 % Vyy5ofg-IGF 65 % Esd0mja-Swef 95 % Bmu0jax-Nnb 99 % Gbs8isl-%Pred-Pre 103 % FEFMax-Pred 5.47 L/E/sec FEFMax-Pre 2.22 L/E/sec FEFMax-%Pred-Pre 40 L/E/sec FEFMax-LLN 3.65 L/E/sec Moa3873-Uwyn 1.73 L/E/sec Udg2700-Dic 0.54 L/E/sec Xzx3810-%Pred-Pre 31 L/E/sec Mek6121-CZM 0.41 L/E/sec ExpTime-Pre 6.99 sec Zpn3elx6-Czgz 78 % Izz4rza6-Kzk 61 % Sas7buq3-%Pred-Pre 77 % Unn7vrd9-DDZ 69 % Total Iron Binding Capacit 05/11/2021 [facility] Main Lab [address] [place] [address] [phone] Iron (Fe) 62 g/dL Normal 50-170 Total Iron Binding Capacity 315 g/dL Normal 250-450 Percent Saturation 19.7 % Normal 13.2-45.0 1 Laboratory test finding 05/11/2021 [facility] Main Lab [address] [place] [address] [phone] Thyroid Stimulating Hormone 0.628 uIU/ML Normal 0. 358-3.740 Free T4 0.79 ng/dL Normal 0.76-1.46 2 Vitamin B12 Level 1464 pg/mL High 247-911 3, 4 Folate 8.4 NG/ML Normal >5.4 5, 6 CBC With Differential 05/04/2021 [facility] Main Lab [address] [place] [address] [id number] [phone] White Blood Count 7.5 10 Normal 4.0-10.0 [...] 36.0-66.0 Lymph % 28.3 % Normal 24.0-44.0 [place] % 10.6 % High 2.0-8.0 Eos % 2.0 % Normal 0.0-3.0 Baso % 0.8 % Normal 0.0-1.0 Immature Granulocyte % 0.4 % Normal 0-3.0 Nucleated Red Blood Cell % 0.0 % Normal 0-0 Neutrophils # 4.3 10 Normal 1.5-8.5 Lymph # 2.1 10 Normal 1.5-5.0 [place] # 0.8 10 Normal 0.0-0.8 Eos # 0.2 10 Normal 0.0-0.5 Baso # 0.1 10 Normal 0.0-0.2 7 Comprehensive Metabolic Profil 05/04/2021 [facility] Main Lab [address] [place], [place] [id number] [phone] Glucose, Fasting 92 mg/dL Normal 70-100 Blood [...] Normal 1.2-2.2 9 Amylase & Lipase 05/04/2021 [facility] Main Lab [address] [place], [place] [id number] [phone] Amylase 34 U/L Normal 25-115 Lipase 75 [...] Little GFR Left ESRD GFR <15 on TRIAGE SPECIALIST 9 05/08/21 (FriMay 08) 04:13 PM LINDA RENTERIA No significant abnormalties. 10 05/08/21 (FriMay 08) 04:09 PM LINDA MARRUFOBOIS Normal. Procedures Date Code Description Status 04/11/2021 85051 Office/Outpatient Established Mo d MDM 30-39 Min Completed 02/28/2021 69475 Office/Outpatient Established Mo d MDM 30-39 Min Completed 2021 23445 Office/Outpatient Established Lo w MDM 20-29 Min Completed Medical Devices Description No Information Available Encounters Type Date Location Provider Dx Diagnosis Office Visit 04/11/2021 2:30p [facility] Linda Jauregui Bob, RPA-C K21.9 Gastro-esophageal reflux dis ease without esophagitis R10.13 Epigastric pain R13.10 Dysphagia, unspecified Office Visit 02/28/2021 1:30p [facility] Linda A Bob, RPA-C K21.9 Gastro-esophageal reflux dis ease without esophagitis R10.13 Epigastric pain R13.10 Dysphagia, unspecified Office Visit 2021 1:30p [facility] Linda Juventino Bob RPA-C R10.13 Epigastric pain K21.9 Gastro-esophageal reflux dis ease without esophagitis Assessments Date Code Description Provider 06/18/2021 J44.9 Chronic obstructive pulmonary di sease, unspecified Kevin Nazario D.O. 06/18/2021 Z87.891 Ex-smoker Kevin Nazario DeRbecca. 04/11/2021 K21.9 Gastro-esophageal reflux disease without esophagitis Linda Renteria, RPA-C 04/11/2021 R10.13 Epigastric pain Linda A Jono ochoa RPA-C 04/11/2021 R13.10 Dysphagia, unspecified Linda A Jonobosharri, RPA-C 02/28/2021 K21.9 Gastro-esophageal reflux disease without esophagitis Linda Renteria, [facility] 02/28/2021 R10.13 Epigastric pain Linda ochoa, [facility] 02/28/2021 R13.10 Dysphagia, unspecified Lindaamador Renteria, [facility] 2021 R10.13 Epigastric pain Linda ochoa, [facility] 2021 K21.9 Gastro-esophageal reflux disease without esophagitis Linda Renteria, [facility] Plan of Treatment Future Appointment(s):* 09/03/2021 2:00 am - Fede Lindsey MD at [facility] 06/18/2021 - Kevin Nazario D.O.* J44.9 Chronic obstructive pulmonary disease, unspecified * Z87.891 Ex-smoker Functional Status Description No Information Available Mental Status Description No Information Available Referrals Description No Information Available
--- OUTSIDE RECORDS SUMMARY | 2021-09-03 11:25 | CCD ---
Author Author [facility] Organization [facility] Address Unknown Phone Unavailable Care Team Providers Care Lithograph Press Feeder Name Role Phone Charlebois, A Flores RPA C Unavailable Unavailable Charlebois, A Flores RPA C Unavailable Unavailable Charlebois, A Flores RPA C Unavailable Unavailable Charlebois, A Flores RPA C Unavailable Unavailable Charlebois, A Flores RPA C Unavailable Unavailable Charlebois, A Flores RPA C Unavailable Unavailable Charlebois, A Flores RPA C Unavailable Unavailable Charlebois, A Flores RPA C Unavailable Unavailable Charlebois, A Flores RPA C Unavailable Unavailable Charlebois, A Flores RPA C Unavailable Unavailable Charlebois, A Flores RPA C Unavailable Unavailable Charlebois, A Flores RPA C Unavailable Unavailable Charlebois, A Flores RPA C Unavailable Unavailable Charlebois, A Flores RPA C Unavailable Unavailable Charlebois, A Flores RPA C Unavailable Unavailable Charlebois, A Flores RPA C Unavailable Unavailable Charlebois, A Flores RPA C Unavailable Unavailable Charlebois, A Flores RPA C Unavailable Unavailable Charlebois, A Flores RPA C Unavailable Unavailable Charlebois, A Flores RPA C Unavailable Unavailable Charlebois, A Flores RPA C Unavailable Unavailable Charlebois, A Flores RPA C Unavailable Unavailable Charlebois, A Flores RPA C Unavailable Unavailable Charlebois, A Flores RPA C Unavailable Unavailable Charlebois, A Flores RPA C Unavailable Unavailable Charlebois, A Flores RPA C Unavailable Unavailable Charlebois, A Flores RPA C Unavailable Unavailable Charlebois, A Flores RPA C Unavailable Unavailable Charlebois, A Flores RPA C Unavailable Unavailable Charlebois, A Flores RPA C Unavailable Unavailable Charlebois, A Flores RPA C Unavailable Unavailable Charlebois, A Flores RPA C Unavailable Unavailable Charlebois, A Flores RPA C Unavailable Unavailable MCELHERAN, MAXIMUS PA Unavailable Unavailable MCELHERAN, MAXIMUS PA Unavailable Unavailable MCELHERAN, MAXIMUS PA Unavailable Unavailable MCELHERAN, MAXIMUS PA Unavailable Unavailable MCELHERAN, MAXIMUS PA Unavailable Unavailable MCELHERAN, MAXIMUS PA Unavailable Unavailable MCELHERAN, MAXIMUS PA Unavailable Unavailable MCELHERAN, MAXIMUS PA Unavailable Unavailable MCELHERAN, MAXIMUS PA Unavailable Unavailable MCELHERAN, MAXIMUS PA Unavailable Unavailable MCELHERAN, MAXIMUS PA Unavailable Unavailable MCELHERAN, MAXIMUS PA Unavailable Unavailable MCELHERAN, MAXIMUS PA Unavailable Unavailable MCELHERAN, MAXIMUS PA Unavailable Unavailable MCELHERAN, MAXIMUS PA Unavailable Unavailable MCELHERAN, MAXIMUS PA Unavailable Unavailable MCELHERAN, MAXIMUS PA Unavailable Unavailable MCELHERAN, MAXIMUS PA Unavailable Unavailable MCELHERAN, MAXIMUS PA Unavailable Unavailable MCELHERAN, MAXIMUS PA Unavailable Unavailable MCELHERAN, MAXIMUS PA Unavailable Unavailable MCELHERAN, MAXIMUS PA Unavailable Unavailable MCELHERAN, MAXIMUS PA Unavailable Unavailable MCELHERAN, MAXIMUS PA Unavailable Unavailable MCELHERAN, MAXIMUS PA Unavailable Unavailable MCELHERAN, MAXIMUS PA Unavailable Unavailable MCELHERAN, MAXIMUS PA Unavailable Unavailable MCELHERAN, MAXIMUS PA Unavailable Unavailable MCELHERAN, MAXIMUS PA Unavailable Unavailable SEARS, A ANNETTE DO Unavailable Unavailable SEARS, A ANNETTE DO Unavailable Unavailable SEARS, A ANNETTE DO Unavailable Unavailable SEARS, A ANNETTE DO Unavailable Unavailable SEARS, A ANNETTE DO Unavailable Unavailable SEARS, A ANNETTE DO Unavailable Unavailable SEARS, A ANNETTE DO Unavailable Unavailable SEARS, A ANNETTE DO Unavailable Unavailable SEARS, A ANNETTE DO Unavailable Unavailable SEARS, A ANNETTE DO Unavailable Unavailable SEARS, A ANNETTE DO Unavailable Unavailable SEARS, A ANNETTE DO Unavailable Unavailable SEARS, A ANNETTE DO Unavailable Unavailable SEARS, A ANNETTE DO Unavailable Unavailable SEARS, A ANNETTE DO Unavailable Unavailable SEARS, A ANNETTE DO Unavailable Unavailable SEARS, A ANNETTE DO Unavailable Unavailable SEARS, A ANNETTE DO Unavailable Unavailable SEARS, A ANNETTE DO Unavailable Unavailable SEARS, A ANNETTE DO Unavailable Unavailable SEARS, A ANNETTE DO Unavailable Unavailable SEARS, A ANNETTE DO Unavailable Unavailable SEARS, A ANNETTE DO Unavailable Unavailable SEARS, A ANNETTE DO Unavailable Unavailable SEARS, A ANNETTE DO Unavailable Unavailable SEARS, A ANNETTE DO Unavailable Unavailable SEARS, A ANNETTE DO Unavailable Unavailable SEARS, A ANNETTE DO Unavailable Unavailable SEARS, A ANNETTE DO Unavailable Unavailable SEARS, A ANNETTE DO Unavailable Unavailable SEARS, A ANNETTE DO Unavailable Unavailable SEARS, A ANNETTE DO Unavailable Unavailable SEARS, A ANNETTE DO Unavailable Unavailable SEARS, A ANNETTE DO Unavailable Unavailable SEARS, A ANNETTE DO Unavailable Unavailable SEARS, A ANNETTE DO Unavailable Unavailable SEARS, A ANNETTE DO Unavailable Unavailable SEARS, A ANNETTE DO Unavailable Unavailable SEARS, A ANNETTE DO Unavailable Unavailable SEARS, A ANNETTE DO Unavailable Unavailable SEARS, A ANNETTE DO Unavailable Unavailable SEARS, A ANNETTE DO Unavailable Unavailable SEARS, A ANNETTE DO Unavailable Unavailable SEARS, A ANNETTE DO Unavailable Unavailable SEARS, A ANNETTE DO Unavailable Unavailable SEARS, A ANNETTE DO Unavailable Unavailable SEARS, A ANNETTE DO Unavailable Unavailable SEARS, A ANNETTE DO Unavailable Unavailable Fish, Rabia Falcon MD Unavailable Unavailable Fish, Rabia Falcon MD Unavailable Unavailable Fish, Rabia Falcon MD Unavailable Unavailable Fish, Rabia Falcon MD Unavailable Unavailable Fish, Rabia Falcon MD Unavailable Unavailable Fish, Rabia Falcon MD Unavailable Unavailable Fish, Rabia Falcon MD Unavailable Unavailable Fish, Rabia Falcon MD Unavailable Unavailable Fish, Rabia Falcon MD Unavailable Unavailable Fish, Rabia Falcon MD Unavailable Unavailable Fish, Rabia Falcon MD Unavailable Unavailable Fish, Rabia Falcon MD Unavailable Unavailable Fish, Rabia Falcon MD Unavailable Unavailable Fish, Rabia Falcon MD Unavailable Unavailable Fish, Rabia Falcon MD Unavailable Unavailable Fish, Rabia Falcon MD Unavailable Unavailable Fish, Rabia Falcon MD Unavailable Unavailable Fish, Rabia Falcon MD Unavailable Unavailable Fish, Rabia Falcon MD Unavailable Unavailable Fish, Rabia Falcon MD Unavailable Unavailable Fish, Rabia Falcon MD Unavailable Unavailable Fish, Rabia Falcon MD Unavailable Unavailable Fish, Rabia Falcon MD Unavailable Unavailable Fish, Rabia Falcon MD Unavailable Unavailable Fish, Rabia Falcon MD Unavailable Unavailable Fish, Rabia Falcon MD Unavailable Unavailable Fish, Rabia Falcon MD Unavailable Unavailable Fish, Rabia Falcon MD Unavailable Unavailable Fish, Rabia Falcon MD Unavailable Unavailable Fish, Rabia Falcon MD Unavailable Unavailable Fish, Rabia Falcon MD Unavailable Unavailable Fish, Rabia Falcon MD Unavailable Unavailable Fish, Rabia Falcon MD Unavailable Unavailable Fish, Rabia Falcon MD Unavailable Unavailable Fish, Rabia Falcon MD Unavailable Unavailable Fish, Rabia Falcon MD Unavailable Unavailable Fish, Rabia Falcon MD Unavailable Unavailable Fish, Rabia Falcon MD Unavailable Unavailable Fish, Rabia Falcon MD Unavailable Unavailable Fish, Rabia Falcon MD Unavailable Unavailable Fish, Rabia Falcon MD Unavailable Unavailable Fish, Rabia Falcon MD Unavailable Unavailable Fish, Rabia Falcon MD Unavailable Unavailable Fish, Rabia Falcon MD Unavailable Unavailable Fish, Rabia Falcon MD Unavailable Unavailable Fish, Rabia Falcon MD Unavailable Unavailable Fish, Rabia Falcon MD Unavailable Unavailable Fish, Rabia Falcon MD Unavailable Unavailable Fish, Rabia Falcon MD Unavailable Unavailable Fish, Rabia Falcon MD Unavailable Unavailable Fish, Rabia Falcon MD Unavailable Unavailable Fish, Rabia Falcon MD Unavailable Unavailable Fish, Rabia Falcon MD Unavailable Unavailable Fish, Rabia Falcon MD Unavailable Unavailable Fish, Rabia Falcon MD Unavailable Unavailable Fish, Rabia Falcon MD Unavailable Unavailable Fish, Rabia Falcon MD Unavailable Unavailable Fish, Rabia Falcon MD Unavailable Unavailable Fish, Rabia Falcon MD Unavailable Unavailable Fish, Rabia Falcon MD Unavailable Unavailable Fish, Rabia Falcon MD Unavailable Unavailable Fish, Rabia Falcon MD Unavailable Unavailable Fish, Rabia Falcon MD Unavailable Unavailable Fish, Rabia Falcon MD Unavailable Unavailable Rabia Ma MD Unavailable Unavailable Mcrae, S Vic RPA Unavailable Unavailable Mcrae, S Vic RPA Unavailable Unavailable Mcrae, S Vic RPA Unavailable Unavailable Mcrae, S Vic RPA Unavailable Unavailable Mcrae, S Vic RPA Unavailable Unavailable Mcrae, S Vic RPA Unavailable Unavailable Mcrae, S Vic RPA Unavailable Unavailable Mcrae, S Vic RPA Unavailable Unavailable Mcrae, S Vic RPA Unavailable Unavailable Mcrae, S Vic RPA Unavailable Unavailable Mcrae, S Vic RPA Unavailable Unavailable Mcrae, S Vic RPA Unavailable Unavailable Mcrae, S Vic RPA Unavailable Unavailable Mcrae, S Vic RPA Unavailable Unavailable Mcrae, S Vic RPA Unavailable Unavailable Mcrae, S Vic RPA Unavailable Unavailable Mcrae, S Vic RPA Unavailable Unavailable Mcrae, S Vic RPA Unavailable Unavailable Mcrae, S Vic RPA Unavailable Unavailable Mcrae, S Vic RPA Unavailable Unavailable Mcrae, S Vic RPA Unavailable Unavailable Mcrae, S Vic RPA Unavailable Unavailable Mcrae, S Vic RPA Unavailable Unavailable Mcrae, S Vic RPA Unavailable Unavailable Mcrae, S Vic RPA Unavailable Unavailable Mcrae, S Vic RPA Unavailable Unavailable Mcrae, S Vic RPA Unavailable Unavailable Mcrae, S Vic RPA Unavailable Unavailable Mcrae, S Vic RPA Unavailable Unavailable Mcrae, S Vic RPA Unavailable Unavailable Mcrae, S Vic RPA Unavailable Unavailable Mcrae, S Vic RPA Unavailable Unavailable Mcrae, S Vic RPA Unavailable Unavailable Mcrae, S Vic RPA Unavailable Unavailable Mcrae, S Vic RPA Unavailable Unavailable Mcrae, S Vic RPA Unavailable Unavailable Mcrae, S Vic RPA Unavailable Unavailable Mcrae, S Vic RPA Unavailable Unavailable Mcrae, S Vic RPA Unavailable Unavailable Mcrae, S Vic RPA Unavailable Unavailable Mcrae, S Vic RPA Unavailable Unavailable Mcrae, S Vic RPA Unavailable Unavailable Mcrae, S Vic RPA Unavailable Unavailable Mcrae, S Vic RPA Unavailable Unavailable Mcrae, S Vic RPA Unavailable Unavailable Mcrae, S Vic RPA Unavailable Unavailable Mcrae, S Vic RPA Unavailable Unavailable Mcrae, S Vic RPA Unavailable Unavailable Mcrae, S Vic RPA Unavailable Unavailable Mcrae, S Vic RPA Unavailable Unavailable Mcrae, S Vic RPA Unavailable Unavailable Mcrae, S Vic RPA Unavailable Unavailable Mcrae, S Vic RPA Unavailable Unavailable Mcrae, S Vic RPA Unavailable Unavailable Mcrae, S Vic RPA Unavailable Unavailable Mcrae, S Vic RPA Unavailable Unavailable Mcrae, S Vic RPA Unavailable Unavailable Mcrae, S Vic RPA Unavailable Unavailable Mcrae, S Vic RPA Unavailable Unavailable Mcrae, S Vic RPA Unavailable Unavailable Mcrae, S Vic RPA Unavailable Unavailable Mcrae, S Vic RPA Unavailable Unavailable Thor Nidia Ho RPA Unavailable Unavailable Nidia Mcrae Vic RPA Unavailable Unavailable Re-disclosure Warning The records that you are about to access may contain information from federally-assisted alcohol or drug abuse programs. If such information is present, then the following federally mandated warning applies: This information has been disclosed to you from records protected by federal confidentiality rules (42 CFR part 2). The federal rules prohibit you from making any further disclosure of this information unless further disclosure is expressly permitted by the written consent of the person to whom it pertains or as otherwise permitted by 42 CFR part 2. A general authorization for the release of medical or other information is NOT sufficient for this purpose. The Federal rules restrict any use of the information to criminally investigate or prosecute any alcohol or drug abuse patient.The records that you are about to access may contain highly sensitive health information, the redisclosure of which is protected by Article 27-F of the [facility] Public Health law. If you continue you may have access to information: Regarding HIV / AIDS; Provided by facilities licensed or operated by the [facility] Office of Mental Health; or Provided by the [facility] Office for People With Developmental Disabilities. If such information is present, then the following [facility] mandated warning applies: This information has been disclosed to you from confidential records which are protected by state law. State law prohibits you from making any further disclosure of this information without the specific written consent of the person to whom it pertains, or as otherwise permitted by law. Any unauthorized further disclosure in violation of state law may result in a fine or half-way sentence or both. A general authorization for the release of medical or other information is NOT sufficient authorization for further disc losure. Family History Family Member Name Family Member Gender Family Member Status Date o f Status Description Data Source(s) Unknown Unknown Problem [facility] ([facility]) mother dx age 20s Unknown Female Problem MEDENT ([facility]) Unknown Female Problem [facility] ([facility]) Unknown Female Problem [facility] ([facility]) Unknown Female Problem [facility] ([facility]) Unknown Female Problem [facility] ([facility]) Unknown Female Problem [facility] ([facility] radiation caused bladder damage, urostom y and ileul conduit Encounters Encounter Providers Location Date Indications Data Source(s ) Outpatient Attender: MAXIMUS BARBER Physical Therapy 08/02/2021 02:15:00 PM EDT MED[facility] ([facility]) Outpatient Attender: ANNETTE Multaniang/[place]/Mike/Reindl 06/18/2021 11:00:00 AM EDT MED[facility] ([facility]) Outpatient Attender: MAXIMUS BARBER Physical Therapy 06/07/2021 02:15:00 PM EDT MED[facility] ([facility]) Outpatient Attender: MAXIMUS BARBER Physical Therapy 05/09/2021 05:30:00 PM EDT MED[facility] ([facility]) Outpatient Attender: Flores Rojas RPA C Kai/[place]/A ngel/Reindl 04/11/2021 02:30:00 PM EDT MED[facility] ([facility] ) Outpatient Attender: Flores Pierda Kai/[place]/A ngel/Reindl 02/28/2021 01:30:00 PM EDT MEDENT ([facility] ) ([id number]) For Template [place] [address] [place] [address] 02/27/2021 12:00:00 AM EDT eCW1 ([facility]) Unknown [address] [facility] [id number] 02/22/2021 12:00:00 AM EDT eCW1 ([facility]) Outpatient [address] [facility] [id number] 02/13/2021 12:00:00 AM EDT eCW1 ([facility]) ([id number]) Est New Patient 60 [address] [place] [address] 01/29/2021 12:00:00 AM EDT eCW1 ([facility]) Unknown [address] [facility] [id number] 01/29/2021 12:00:00 AM EDT eCW1 ([facility]) Unknown [address] [facility] [place] [address] 01/29/2021 12:00:00 AM EDT eCW1 ([facility]) ([id number]) For Template [address] [address] [place] [address] 01/25/2021 12:00:00 AM EDT eCW1 ([facility]) Outpatient Attender: Vic Mcrae RPA [place]/ A.Garcia Urolo gy 01/23/2021 02:30:00 PM EDT [facility] ([id number][facility] New Patient 120 [address] [place] [address] 01/18/2021 12:00:00 AM EDT eCW1 ([facility]) Outpatient Attender: Flores Rojas RPA C Kai/[place]/A ngel/Reindl 2021 01:30:00 PM EDT MEDENT ([facility], ) Outpatient Attender: ANNETTE NAZARIO DO Kai/[place]/Mike/Reindl 12/14/2020 10:30:00 AM EST MEDENT ([facility], ) Outpatient Attender: Terrie Ma MD Physical Therapy 10/30 10:00:00 AM EST [facility] ([facility] ) Outpatient Attender: Flores Rojas RPA C Kai/[place]/A ngel/Reindl 07/13/2020 11:15:00 AM EDT MED[facility] ([facility], ) Immunizations Vaccine Date Status Description Data Source(s) COVID-19 VACCINE Pfizer 12/27/2020 12:00:00 AM EST completed [facility] Vaccine Series Complete: YESThis Data wa s Submitted to [facility] Via [employer]. COVID-19 VACCINE Pfizer 12/06/2020 12:00:00 AM EST completed [facility] Vaccine Series Complete: NOThis Data was Submitted to [facility] Via [employer]. Medications Medication Brand Name Start Date Product Form Dose Route Admi nistrative Instructions Pharmacy Instructions Status Indications Reaction Description Data Source(s) 200 mg 08/29/2021 12:00:00 AM EST capsule 90 TAKE ONE CAPSULE BY MOUTH THREE TIMES A DAY TAKE ONE CAPSULE BY MOUTH THREE TIMES A DAY SOLD: 08/30/2021 [facility] 100,000 unit/mL 08/29/2021 12:00:00 AM EST suspension 120 TAKE 1 TEASPOONFUL BY MOUTH FOUR TIMES A DAY TAKE 1 TEASPOONFUL BY MOUTH FOUR TIMES A DAY SOLD: 08/29/2021 [facility] Acetaminophen 325 MG / Hydrocodone Bitartrate 10 MG Or al Tablet 10-325 mg HYDROCODONE/ACETAMINOPHEN 08/29/2021 12:00:00 AM EST tablet 56 TAKE ONE TABLET BY MOUTH FOUR TIMES A DAY MAXIMUM DAILY DOSE = 4 TABLETS TAKE ONE TABLET BY MOUTH FOUR TIMES A DAY MAXIMUM DAILY DOSE = 4 TABLETS SOLD: 08/29/2021 [facility] Acetaminophen 325 MG / Hydrocodone Bitartrate 10 MG Or al Tablet 10-325 mg HYDROCODONE/ACETAMINOPHEN 08/15/2021 12:00:00 AM EDT tablet 56 TAKE ONE TABLET BY MOUTH FOUR TIMES A DAY MAXIMUM DAILY DOSE = 4 TABLETS TAKE ONE TABLET BY MOUTH FOUR TIMES A DAY MAXIMUM DAILY DOSE = 4 TABLETS SOLD: 08/15/2021 [facility] Cephalexin 500 MG Oral Capsule CEPHALEXIN 08/01/2021 12:00:00 AM EDT capsule 60 TAKE ONE CAPSULE BY MOUTH THREE TIMES A DAY TAKE ONE C APSULE BY MOUTH THREE TIMES A DAY SOLD: 08/01/2021 [facility] Acetaminophen 325 MG / Hydrocodone Bitartrate 10 MG Or al Tablet 10-325 mg HYDROCODONE/ACETAMINOPHEN 08/01/2021 12:00:00 AM EDT tablet 56 TAKE ONE TABLET BY MOUTH FOUR TIMES A DAY MAXIMUM DAILY DOSE = 4 TABLETS TAKE ONE TABLET BY MOUTH FOUR TIMES A DAY MAXIMUM DAILY DOSE = 4 TABLETS SOLD: 08/01/2021 [facility] 0.05 % 08/01/2021 12:00:00 AM EDT ointment 60 APPLY 1 APPLICATION TOPICALLY TO LEGS TWICE A DAY APPLY 1 APPLICATION TOPICALLY TO LEGS TWICE A DAY SOLD : 08/01/2021 [facility] Acetaminophen 325 MG / Hydrocodone Bitartrate 10 MG Or al Tablet 10-325 mg HYDROCODONE/ACETAMINOPHEN 07/19/2021 12:00:00 AM EDT tablet 56 TAKE ONE TABLET BY MOUTH FOUR TIMES A DAY MAXIMUM DAILY DOSE = 4 TAKE ONE TABLET BY MOUTH FOUR TIMES A DAY MAXIMUM DAILY DOSE = 4 SOLD: 07/19/2021 [facility] Acetaminophen 325 MG / Hydrocodone Bitartrate 10 MG Or al Tablet 10-325 mg HYDROCODONE/ACETAMINOPHEN 07/05/2021 12:00:00 AM EDT tablet 60 TAKE 1 TABLET BY MOUTH 4 TIMES A DAY MAX DAILY DOSE = 4 TABLETS TAKE 1 TABLET BY MOUTH 4 TIMES A DAY MAX DAILY DOSE = 4 TABLETS SOLD: 07/05/2021 [facility] Acetaminophen 325 MG / Hydrocodone Bitartrate 10 MG Or al Tablet 10-325 mg HYDROCODONE/ACETAMINOPHEN 06/20/2021 12:00:00 AM EDT tablet 60 TAKE ONE TABLET BY MOUTH FOUR TIMES A DAY MAXIMUM DAILY DOSE = 4 TABLETS TAKE ONE TABLET BY MOUTH FOUR TIMES A DAY MAXIMUM DAILY DOSE = 4 TABLETS SOLD: 06/21/2021 [facility] Acetaminophen 325 MG / Hydrocodone Bitartrate 10 MG Or al Tablet 10-325 mg HYDROCODONE/ACETAMINOPHEN 06/06/2021 12:00:00 AM EDT tablet 60 TAKE ONE TABLET BY MOUTH FOUR TIMES A DAY MAXIMUM DAILY DOSE = 4 TABLETS TAKE ONE TABLET BY MOUTH FOUR TIMES A DAY MAXIMUM DAILY DOSE = 4 TABLETS SOLD: 06/07/2021 [facility] 20 mg 06/06/2021 12:00:00 AM EDT tablet 30 TAKE ONE TABLET BY MOUTH EVERY DAY TAKE ONE TABLET BY MOUTH EVERY DAY SOLD: 06/07/2021 [facility] Acetaminophen 325 MG / Hydrocodone Bitartrate 10 MG Or al Tablet 10-325 mg HYDROCODONE/ACETAMINOPHEN 05/23/2021 12:00:00 AM EDT tablet 60 TAKE ONE TABLET BY MOUTH FOUR TIMES A DAY MAXIMUM DAILY DOSE = 4 TAKE ONE TABLET BY MOUTH FOUR TIMES A DAY MAXIMUM DAILY DOSE = 4 SOLD: 05/23/2021 [facility] 1 gram 05/23/2021 12:00:00 AM EDT tablet 60 TAKE ONE TABLET BY MOUTH TWICE A DAY 30 MINUTES BEFORE MEALS TAKE ONE TABLET BY MOUTH TWICE A DAY 30 MINUTES BEFORE MEALS SOLD: 06/07/2021 [facility] Acetaminophen 325 MG / Hydrocodone Bitartrate 10 MG Or al Tablet 10-325 mg HYDROCODONE/ACETAMINOPHEN 05/09/2021 12:00:00 AM EDT tablet 60 TAKE ONE TABLET BY MOUTH FOUR TIMES A DAY MAXIMUM DAILY DOSE = 4 TABLETS TAKE ONE TABLET BY MOUTH FOUR TIMES A DAY MAXIMUM DAILY DOSE = 4 TABLETS SOLD: 05/09/2021 [facility] Acetaminophen 325 MG / Hydrocodone Bitartrate 10 MG Or al Tablet 10-325 mg HYDROCODONE/ACETAMINOPHEN 04/25/2021 12:00:00 AM EDT tablet 60 TAKE ONE TABLET BY MOUTH FOUR TIMES A DAY MAXIMUM DAILY DOSE = 4 TABLETS TAKE ONE TABLET BY MOUTH FOUR TIMES A DAY MAXIMUM DAILY DOSE = 4 TABLETS SOLD: 04/25/2021 [facility] Acetaminophen 325 MG / Hydrocodone Bitartrate 10 MG Or al Tablet 10-325 mg HYDROCODONE/ACETAMINOPHEN 04/11/2021 12:00:00 AM EDT tablet 60 TAKE ONE TABLET BY MOUTH FOUR TIMES A DAY MAXIMUM DAILY DOSE = 4 TABLETS TAKE ONE TABLET BY MOUTH FOUR TIMES A DAY MAXIMUM DAILY DOSE = 4 TABLETS SOLD: 04/11/2021 [facility] tizanidine 2 MG Oral Tablet TIZANIDINE HCL 04/09/2021 12:00:00 AM EDT tablet 60 TAKE ONE TABLET BY MOUTH EVERY 8 HOURS NEEDED MAXIM UM DAILY DOSE = 4 TAKE ONE TABLET BY MOUTH EVERY 8 HOURS NEEDED MAXIMUM DAILY DOSE = 4 SOLD: 04/11/2021 [facility] tizanidine 2 MG Oral Tablet TIZANIDINE HCL 04/09/2021 12:00:00 AM EDT tablet 60 TAKE ONE TABLET BY MOUTH EVERY 8 HOURS NEEDED MAXIM UM DAILY DOSE = 4 TAKE ONE TABLET BY MOUTH EVERY 8 HOURS NEEDED MAXIMUM DAILY DOSE = 4 SOLD: 05/09/2021 [facility] tizanidine 2 MG Oral Tablet TIZANIDINE HCL 04/09/2021 12:00:00 AM EDT tablet 60 TAKE ONE TABLET BY MOUTH EVERY 8 HOURS NEEDED MAXIM UM DAILY DOSE = 4 TAKE ONE TABLET BY MOUTH EVERY 8 HOURS NEEDED MAXIMUM DAILY DOSE = 4 SOLD: 04/25/2021 [facility] Famotidine 40 MG Oral Tablet FAMOTIDINE 03/28/2021 12:00:00 AM EDT tab let 60 TAKE 1 TABLET BY MOUTH TWICE DAILY TAKE 1 TABLET BY MOUTH TWICE DAILY SOLD: 05/09/2021 [facility] Famotidine 40 MG Oral Tablet FAMOTIDINE 03/28/2021 12:00:00 AM EDT tab let 60 TAKE 1 TABLET BY MOUTH TWICE DAILY TAKE 1 TABLET BY MOUTH TWICE DAILY SOLD: 06/07/2021 [facility] Famotidine 40 MG Oral Tablet FAMOTIDINE 03/28/2021 12:00:00 AM EDT tab let 60 TAKE 1 TABLET BY MOUTH TWICE DAILY TAKE 1 TABLET BY MOUTH TWICE DAILY SOLD: 03/29/2021 [facility] Acetaminophen 325 MG / Hydrocodone Bitartrate 10 MG Or al Tablet 10-325 mg HYDROCODONE/ACETAMINOPHEN 03/27/2021 12:00:00 AM EDT tablet 60 TAKE ONE TABLET BY MOUTH FOUR TIMES A DAY MAXIMUM DAILY DOSE = 4 TABLETS TAKE ONE TABLET BY MOUTH FOUR TIMES A DAY MAXIMUM DAILY DOSE = 4 TABLETS SOLD: 03/28/2021 [facility] 40 mg 03/20/2021 12:00:00 AM EDT capsule 30 TAKE ONE CAPSULE BY MOUTH EVERY MORNING TAKE ONE CAPSULE BY MOUTH EVERY MORNING SOLD: 04/25/2021 [facility] 40 mg 03/20/2021 12:00:00 AM EDT capsule 30 TAKE ONE CAPSULE BY MOUTH EVERY MORNING TAKE ONE CAPSULE BY MOUTH EVERY MORNING SOLD: 06/07/2021 [facility] 40 mg 03/20/2021 12:00:00 AM EDT capsule 30 TAKE ONE CAPSULE BY MOUTH EVERY MORNING TAKE ONE CAPSULE BY MOUTH EVERY MORNING SOLD: 03/28/2021 [facility] Acetaminophen 325 MG / Hydrocodone Bitartrate 10 MG Or al Tablet 10-325 mg HYDROCODONE/ACETAMINOPHEN 03/14/2021 12:00:00 AM EDT tablet 60 TAKE ONE TABLET BY MOUTH FOUR TIMES A DAY MAXIMUM DAILY DOSE = 4 TABLETS TAKE ONE TABLET BY MOUTH FOUR TIMES A DAY MAXIMUM DAILY DOSE = 4 TABLETS SOLD: 03/14/2021 [facility] 90 mcg/actuation 03/09/2021 12:00:00 AM EDT HFA aerosol inha ler 18 INHALE TWO PUFFS BY MOUTH FOUR TIMES A DAY NEEDED INHALE TWO PUFFS BY MOUTH FOUR TIMES A DAY NEEDED SOLD: 04/11/2021 [facility] 90 mcg/actuation 03/09/2021 12:00:00 AM EDT HFA aerosol inha ler 18 INHALE TWO PUFFS BY MOUTH FOUR TIMES A DAY NEEDED INHALE TWO PUFFS BY MOUTH FOUR TIMES A DAY NEEDED SOLD: 03/14/2021 [facility] 1 gram 03/01/2021 12:00:00 AM EDT tablet 60 TAKE ONE TABLET BY MOUTH TWICE A DAY 30 MINUTES BEFORE MEALS TAKE ONE TABLET BY MOUTH TWICE A DAY 30 MINUTES BEFORE MEALS SOLD: 04/25/2021 [facility] 1 gram 03/01/2021 12:00:00 AM EDT tablet 60 TAKE ONE TABLET BY MOUTH TWICE A DAY 30 MINUTES BEFORE MEALS TAKE ONE TABLET BY MOUTH TWICE A DAY 30 MINUTES BEFORE MEALS SOLD: 03/14/2021 [facility] Acetaminophen 325 MG / Hydrocodone Bitartrate 10 MG Or al Tablet 10-325 mg HYDROCODONE/ACETAMINOPHEN 02/28/2021 12:00:00 AM EDT tablet 60 TAKE ONE TABLET BY MOUTH FOUR TIMES A DAY. MAXIMUM DAILY DOSE = 4 TAKE ONE TABLET BY MOUTH FOUR TIMES A DAY. MAXIMUM DAILY DOSE = 4 SOLD: 02/28/2021 [facility] tizanidine 2 MG Oral Tablet TIZANIDINE HCL 02/27/2021 12:00:00 AM EDT tablet 60 TAKE ONE TABLET BY MOUTH EVERY 8 HOURS NEEDED MAXIM UM DAILY DOSE = 4 TAKE ONE TABLET BY MOUTH EVERY 8 HOURS NEEDED MAXIMUM DAILY DOSE = 4 SOLD: 02/28/2021 [facility] tizanidine 2 MG Oral Tablet TIZANIDINE HCL 02/27/2021 12:00:00 AM EDT tablet 60 TAKE ONE TABLET BY MOUTH EVERY 8 HOURS NEEDED MAXIM UM DAILY DOSE = 4 TAKE ONE TABLET BY MOUTH EVERY 8 HOURS NEEDED MAXIMUM DAILY DOSE = 4 SOLD: 03/14/2021 [facility] tizanidine 2 MG Oral Tablet TIZANIDINE HCL 02/27/2021 12:00:00 AM EDT tablet 60 TAKE ONE TABLET BY MOUTH EVERY 8 HOURS NEEDED MAXIM UM DAILY DOSE = 4 TAKE ONE TABLET BY MOUTH EVERY 8 HOURS NEEDED MAXIMUM DAILY DOSE = 4 SOLD: 03/28/2021 [facility] 20 mg 02/26/2021 12:00:00 AM EDT tablet 30 TAKE ONE TABLET BY MOUTH EVERY DAY TAKE ONE TABLET BY MOUTH EVERY DAY SOLD: 02/28/2021 [facility] 20 mg 02/26/2021 12:00:00 AM EDT tablet 30 TAKE ONE TABLET BY MOUTH EVERY DAY TAKE ONE TABLET BY MOUTH EVERY DAY SOLD: 05/09/2021 [facility] 20 mg 02/26/2021 12:00:00 AM EDT tablet 30 TAKE ONE TABLET BY MOUTH EVERY DAY TAKE ONE TABLET BY MOUTH EVERY DAY SOLD: 03/29/2021 [facility] 5 % 02/15/2021 12:00:00 AM EDT adhesive patch,medicate d 90 USE DIRECTED 12 HOURS ON & 12 HOURS OFF UP TO 3 PATCHES A DAY USE DIRECTED 12 HOURS ON & 12 HOURS OFF UP TO 3 PATCHES A DAY SOLD: 02/26/2021 [facility] 5 % 02/15/2021 12:00:00 AM EDT adhesive patch,medicate d 90 USE DIRECTED 12 HOURS ON & 12 HOURS OFF UP TO 3 PATCHES A DAY USE DIRECTED 12 HOURS ON & 12 HOURS OFF UP TO 3 PATCHES A DAY SOLD: 04/25/2021 [facility] 5 % 02/15/2021 12:00:00 AM EDT adhesive patch,medicate d 90 USE DIRECTED 12 HOURS ON & 12 HOURS OFF UP TO 3 PATCHES A DAY USE DIRECTED 12 HOURS ON & 12 HOURS OFF UP TO 3 PATCHES A DAY SOLD: 03/28/2021 [facility] Acetaminophen 325 MG / Hydrocodone Bitartrate 10 MG Or al Tablet 10-325 mg HYDROCODONE/ACETAMINOPHEN 02/14/2021 12:00:00 AM EDT tablet 60 TAKE 1 TABLET BY MOUTH 4 TIMES A DAY MAXIMUM DAILY DOSE = 4 TABLETS TAKE 1 TABLET BY MOUTH 4 TIMES A DAY MAXIMUM DAILY DOSE = 4 TABLETS SOLD: 02/14/2021 [facility] Durolane Durolane 02/07/2021 12:00:00 AM EDT activ e [facility] ([facility]) 400 mg 01/31/2021 12:00:00 AM EDT tablet extended release 90 TAKE ONE TABLET BY MOUTH THREE TIMES A DAY TAKE ONE TABLET BY MOUTH THREE TIMES A DAY SOLD: 02/02/2021 [facility] 10-325 mg 01/31/2021 12:00:00 AM EDT tablet 60 TAKE 1 TABLET BY MOUTH 4 TIMES A DAY MAXIMUM DAILY DOSE = 4 TABLETS TAKE 1 TABLET BY MOUTH 4 TIMES A DAY MAXIMUM DAILY DOSE = 4 TABLETS SOLD: 01/31/2021 [facility] 400 mg 01/17/2021 12:00:00 AM EDT capsule 120 TAKE ONE CAPSULE BY MOUTH FOUR TIMES A DAY TAKE ONE CAPSULE BY MOUTH FOUR TIMES A DAY SOLD: 01/28/2021 [facility] 10-325 mg 01/17/2021 12:00:00 AM EDT tablet 60 TAKE ONE TABLET BY MOUTH FOUR TIMES A DAY. MAXIMUM DAILY DOSE = 4 TAKE ONE TABLET BY MOUTH FOUR TIMES A DA Y. MAXIMUM DAILY DOSE = 4 SOLD: 01/17/2021 [facility] 400 mg 01/17/2021 12:00:00 AM EDT capsule 120 TAKE ONE CAPSULE BY MOUTH FOUR TIMES A DAY TAKE ONE CAPSULE BY MOUTH FOUR TIMES A DAY SOLD: 03/28/2021 [facility] 400 mg 01/17/2021 12:00:00 AM EDT capsule 120 TAKE ONE CAPSULE BY MOUTH FOUR TIMES A DAY TAKE ONE CAPSULE BY MOUTH FOUR TIMES A DAY SOLD: 02/26/2021 [facility] 400 mg 01/17/2021 12:00:00 AM EDT capsule 120 TAKE ONE CAPSULE BY MOUTH FOUR TIMES A DAY TAKE ONE CAPSULE BY MOUTH FOUR TIMES A DAY SOLD: 04/25/2021 [facility] tizanidine 2 MG Oral Tablet TIZANIDINE HCL 01/16/2021 12:00:00 AM EDT tablet 60 TAKE ONE TABLET BY MOUTH EVERY 8 HOURS NEEDED MAXIM UM DAILY DOSE = 4 TAKE ONE TABLET BY MOUTH EVERY 8 HOURS NEEDED MAXIMUM DAILY DOSE = 4 SOLD: 01/17/2021 [facility] tizanidine 2 MG Oral Tablet TIZANIDINE HCL 01/16/2021 12:00:00 AM EDT tablet 60 TAKE ONE TABLET BY MOUTH EVERY 8 HOURS NEEDED MAXIM UM DAILY DOSE = 4 TAKE ONE TABLET BY MOUTH EVERY 8 HOURS NEEDED MAXIMUM DAILY DOSE = 4 SOLD: 02/14/2021 [facility] tizanidine 2 MG Oral Tablet TIZANIDINE HCL 01/16/2021 12:00:00 AM EDT tablet 60 TAKE ONE TABLET BY MOUTH EVERY 8 HOURS NEEDED MAXIM UM DAILY DOSE = 4 TAKE ONE TABLET BY MOUTH EVERY 8 HOURS NEEDED MAXIMUM DAILY DOSE = 4 SOLD: 01/31/2021 [facility] 1 gram 01/05/2021 12:00:00 AM EDT tablet 60 TAKE 1 TABLET BY MOUTH 30 MINUTES PRIOR TO MEALS TWO TIMES A DAY TAKE 1 TABLET BY MOUTH 30 MINUTES PRIOR TO MEALS TWO TIMES A DAY SOLD: 01/07/2021 [facility] 1 gram 01/05/2021 12:00:00 AM EDT recon soln 4 INJECT CONTENTS OF ONE VIAL INTRAMUSCULARLY ONCE DAILY INJECT CONTENTS OF ONE VIAL INTRAMUSCULA RLY ONCE DAILY SOLD: 01/07/2021 [facility] 10 mg/mL (1 %) 2021 12:00:00 AM EDT solution 20 USE DIRECTED USE DIRECTED SOLD: 2021 [facility] Sucralfate 1000 MG Oral Tablet Sucralfate 2021 12:00:00 AM EDT active [facility] ([facility], ) 1 gram 01/03/2021 12:00:00 AM EDT recon soln 3 INJECT 1 GRAM INTRAMUSCULARLY DAILY INJECT 1 GRAM INTRAMUSCULARLY DAILY SOLD: 2021 [facility] 10-325 mg 01/03/2021 12:00:00 AM EDT tablet 60 TAKE ONE TABLET BY MOUTH FOUR TIMES A DAY MAXIMUM DAILY DOSE = 4 TABLETS TAKE ONE TABLET BY MOUTH FOUR TIMES A DAY MAXIMUM DAILY DOSE = 4 TABLETS SOLD: 01/03/2021 [facility] 40 mg 12/27/2020 12:00:00 AM EST capsule 30 TAKE ONE CAPSULE BY MOUTH EVERY MORNING TAKE ONE CAPSULE BY MOUTH EVERY MORNING SOLD: 12/28/2020 [facility] 40 mg 12/27/2020 12:00:00 AM EST capsule 30 TAKE ONE CAPSULE BY MOUTH EVERY MORNING TAKE ONE CAPSULE BY MOUTH EVERY MORNING SOLD: 02/26/2021 [facility] 40 mg 12/27/2020 12:00:00 AM EST capsule 30 TAKE ONE CAPSULE BY MOUTH EVERY MORNING TAKE ONE CAPSULE BY MOUTH EVERY MORNING SOLD: 01/28/2021 [facility] doxycycline hyclate 100 MG Oral Capsule DOXYCYCLINE HYCLATE 12/20/2020 12:00:00 AM EST capsule 60 TAKE ONE CAPSULE BY MOUTH TW ICE A DAY TAKE ONE CAPSULE BY MOUTH TWICE A DAY SOLD: 12/28/2020 [facility] Acetaminophen 325 MG / Hydrocodone Bitartrate 10 MG Or al Tablet 10-325 mg HYDROCODONE BITARTRATE/ACETAMINOPHEN 12/20/2020 12:00:00 AM EST tablet 60 TAKE 1 TABLET BY MOUTH 4 TIMES A DAY MAXIMUM DAILY DOSE = 4 TABLETS TAKE 1 TABLET BY MOUTH 4 TIMES A DAY MAXIMUM DAILY DOSE = 4 TABLETS SOLD: 12/20/2020 [facility] 5 mg 12/15/2020 12:00:00 AM EST tablet 30 TAKE ONE TABLET BY MOUTH EVERY DAY TAKE ONE TABLET BY MOUTH EVERY DAY SOLD: 12/20/2020 [facility] doxycycline hyclate 100 MG Oral Capsule DOXYCYCLINE HYCLATE 12/06/2020 12:00:00 AM EST capsule 30 TAKE ONE CAPSULE BY MOUTH EV NIK DAY TAKE ONE CAPSULE BY MOUTH EVERY DAY SOLD: 12/06/2020 [facility] 10-325 mg 12/06/2020 12:00:00 AM EST tablet 60 TAKE ONE TABLET BY MOUTH FOUR TIMES A DAY MAXIMUM DAILY DOSE = 4 TABLETS TAKE ONE TABLET BY MOUTH FOUR TIMES A DAY MAXIMUM DAILY DOSE = 4 TABLETS SOLD: 12/06/2020 [facility] tizanidine 2 MG Oral Tablet TIZANIDINE HCL 12/05/2020 12:00:00 AM EST tablet 60 TAKE ONE TABLET BY MOUTH EVERY 8 HOURS NEEDED MAXIM UM DAILY DOSE = 4 TAKE ONE TABLET BY MOUTH EVERY 8 HOURS NEEDED MAXIMUM DAILY DOSE = 4 SOLD: 12/20/2020 [facility] tizanidine 2 MG Oral Tablet TIZANIDINE HCL 12/05/2020 12:00:00 AM EST tablet 60 TAKE ONE TABLET BY MOUTH EVERY 8 HOURS NEEDED MAXIM UM DAILY DOSE = 4 TAKE ONE TABLET BY MOUTH EVERY 8 HOURS NEEDED MAXIMUM DAILY DOSE = 4 SOLD: 12/06/2020 [facility] tizanidine 2 MG Oral Tablet TIZANIDINE HCL 12/05/2020 12:00:00 AM EST tablet 60 TAKE ONE TABLET BY MOUTH EVERY 8 HOURS NEEDED MAXIM UM DAILY DOSE = 4 TAKE ONE TABLET BY MOUTH EVERY 8 HOURS NEEDED MAXIMUM DAILY DOSE = 4 SOLD: 01/03/2021 [facility] Metronidazole 500 MG Oral Tablet METRONIDAZOLE 11/22/2020 12:0 0:00 AM EST tablet 14 TAKE ONE TABLET BY MOUTH TWICE A DAY TAKE ONE TABLET BY MOUTH TWICE A DAY SOLD: 11/22/2020 [facility] 70 mg 11/22/2020 12:00:00 AM EST tablet 2 TAKE ONE-HALF TABLET BY MOUTH ONCE A WEEK TAKE ONE-HALF TABLET BY MOUTH ONCE A WEEK SOLD: 04/11/2021 [facility] 10-325 mg 11/22/2020 12:00:00 AM EST tablet 60 TAKE 1 TABLET BY MOUTH 4 TIMES A DAY MAX DAILY DOSE = 4 TABLETS TAKE 1 TABLET BY MOUTH 4 TIMES A DAY MAX DAILY DOSE = 4 TABLETS SOLD: 11/22/2020 [facility] 70 mg 11/22/2020 12:00:00 AM EST tablet 2 TAKE ONE-HALF TABLET BY MOUTH ONCE A WEEK TAKE ONE-HALF TABLET BY MOUTH ONCE A WEEK SOLD: 11/22/2020 [facility] 70 mg 11/22/2020 12:00:00 AM EST tablet 2 TAKE ONE-HALF TABLET BY MOUTH ONCE A WEEK TAKE ONE-HALF TABLET BY MOUTH ONCE A WEEK SOLD: 01/17/2021 [facility] 70 mg 11/22/2020 12:00:00 AM EST tablet 2 TAKE ONE-HALF TABLET BY MOUTH ONCE A WEEK TAKE ONE-HALF TABLET BY MOUTH ONCE A WEEK SOLD: 12/20/2020 [facility] 70 mg 11/22/2020 12:00:00 AM EST tablet 2 TAKE ONE-HALF TABLET BY MOUTH ONCE A WEEK TAKE ONE-HALF TABLET BY MOUTH ONCE A WEEK SOLD: 06/07/2021 [facility] 70 mg 11/22/2020 12:00:00 AM EST tablet 2 TAKE ONE-HALF TABLET BY MOUTH ONCE A WEEK TAKE ONE-HALF TABLET BY MOUTH ONCE A WEEK SOLD: 03/14/2021 [facility] 5 mg 11/22/2020 12:00:00 AM EST tablet 60 TAKE ONE TABLET BY MOUTH TWICE A DAY TAKE ONE TABLET BY MOUTH TWICE A DAY SOLD: 11/22/2020 [facility] 70 mg 11/22/2020 12:00:00 AM EST tablet 2 TAKE ONE-HALF TABLET BY MOUTH ONCE A WEEK TAKE ONE-HALF TABLET BY MOUTH ONCE A WEEK SOLD: 05/09/2021 [facility] 70 mg 11/22/2020 12:00:00 AM EST tablet 2 TAKE ONE-HALF TABLET BY MOUTH ONCE A WEEK TAKE ONE-HALF TABLET BY MOUTH ONCE A WEEK SOLD: 02/14/2021 [facility] 20 mg 11/13/2020 12:00:00 AM EST tablet 30 TAKE ONE TABLET BY MOUTH EVERY DAY TAKE ONE TABLET BY MOUTH EVERY DAY SOLD: 12/20/2020 [facility] Acyclovir 400 MG Oral Tablet ACYCLOVIR 11/13/2020 12:00:00 AM EST tabl et 60 TAKE ONE TABLET BY MOUTH TWICE A DAY TAKE ONE TABLET BY MOUTH TWICE A DAY SOLD: 11/19/2020 [facility] 20 mg 11/13/2020 12:00:00 AM EST tablet 30 TAKE ONE TABLET BY MOUTH EVERY DAY TAKE ONE TABLET BY MOUTH EVERY DAY SOLD: 01/28/2021 [facility] 20 mg 11/13/2020 12:00:00 AM EST tablet 30 TAKE ONE TABLET BY MOUTH EVERY DAY TAKE ONE TABLET BY MOUTH EVERY DAY SOLD: 11/19/2020 [facility] 10-325 mg 11/08/2020 12:00:00 AM EST tablet 60 TAKE ONE TABLET BY MOUTH FOUR TIMES A DAY MAXIMUM DAILY DOSE = 4 TABLETS TAKE ONE TABLET BY MOUTH FOUR TIMES A DAY MAXIMUM DAILY DOSE = 4 TABLETS SOLD: 11/08/2020 [facility] Cephalexin 500 MG Oral Capsule CEPHALEXIN 11/08/2020 12:00:00 AM EST capsule 40 TAKE ONE CAPSULE BY MOUTH FOUR TIMES A DAY FOR 10 DAYS TAKE ONE CAPSULE BY MOUTH FOUR TIMES A DAY FOR 10 DAYS SOLD: 11/08/2020 [facility] 10-325 mg 10/25/2020 12:00:00 AM EST tablet 60 TAKE ONE TABLET BY MOUTH FOUR TIMES A DAY MAXIMUM DAILY DOSE = 4 TABLETS TAKE ONE TABLET BY MOUTH FOUR TIMES A DAY MAXIMUM DAILY DOSE = 4 TABLETS SOLD: 10/25/2020 [facility] tizanidine 2 MG Oral Tablet TIZANIDINE HCL 10/21/2020 12:00:00 AM EST tablet 60 TAKE ONE TABLET BY MOUTH EVERY 8 HOURS A S NEEDED MAXIMUM DAILY DOSE = 4 TABLETS TAKE ONE TABLET BY MOUTH EVERY 8 HOURS NEEDED MAXIM UM DAILY DOSE = 4 TABLETS SOLD: 11/22/2020 [facility] tizanidine 2 MG Oral Tablet TIZANIDINE HCL 10/21/2020 12:00:00 AM EST tablet 60 TAKE ONE TABLET BY MOUTH EVERY 8 HOURS A S NEEDED MAXIMUM DAILY DOSE = 4 TABLETS TAKE ONE TABLET BY MOUTH EVERY 8 HOURS NEEDED MAXIM UM DAILY DOSE = 4 TABLETS SOLD: 10/25/2020 [facility] tizanidine 2 MG Oral Tablet TIZANIDINE HCL 10/21/2020 12:00:00 AM EST tablet 60 TAKE ONE TABLET BY MOUTH EVERY 8 HOURS A S NEEDED MAXIMUM DAILY DOSE = 4 TABLETS TAKE ONE TABLET BY MOUTH EVERY 8 HOURS NEEDED MAXIM UM DAILY DOSE = 4 TABLETS SOLD: 11/08/2020 [facility] 5 mg 10/11/2020 12:00:00 AM EST tablet 60 TAKE ONE TABLET BY MOUTH TWICE A DAY TAKE ONE TABLET BY MOUTH TWICE A DAY SOLD: 10/11/2020 [facility] 10-325 mg 10/11/2020 12:00:00 AM EST tablet 60 TAKE ONE TABLET BY MOUTH FOUR TIMES A DAY MAXIMUM DAILY DOSE = 4 TAKE ONE TABLET BY MOUTH FOUR TIMES A DA Y MAXIMUM DAILY DOSE = 4 SOLD: 10/11/2020 [facility] 24 HR Bupropion Hydrochloride 300 MG Extended Release Oral T ablet BUPROPION HCL 10/04/2020 12:00:00 AM EST tablet extended release 24 hr 30 TAKE ONE TABLET BY MOUTH EVERY MORNING TAKE ONE TABLET BY MOUTH EVERY MORNING SOLD: 12/06/2020 [facility] 40 mg 10/04/2020 12:00:00 AM EST capsule 30 TAKE ONE CAPSULE BY MOUTH EVERY MORNING TAKE ONE CAPSULE BY MOUTH EVERY MORNING SOLD: 10/08/2020 [facility] 24 HR Bupropion Hydrochloride 300 MG Extended Release Oral T ablet BUPROPION HCL 10/04/2020 12:00:00 AM EST tablet extended release 24 hr 30 TAKE ONE TABLET BY MOUTH EVERY MORNING TAKE ONE TABLET BY MOUTH EVERY MORNING SOLD: 11/05/2020 [facility] 40 mg 10/04/2020 12:00:00 AM EST capsule 30 TAKE ONE CAPSULE BY MOUTH EVERY MORNING TAKE ONE CAPSULE BY MOUTH EVERY MORNING SOLD: 11/05/2020 [facility] 40 mg 10/04/2020 12:00:00 AM EST capsule 30 TAKE ONE CAPSULE BY MOUTH EVERY MORNING TAKE ONE CAPSULE BY MOUTH EVERY MORNING SOLD: 12/06/2020 [facility] 24 HR Bupropion Hydrochloride 300 MG Extended Release Oral T ablet BUPROPION HCL 10/04/2020 12:00:00 AM EST tablet extended release 24 hr 30 TAKE ONE TABLET BY MOUTH EVERY MORNING TAKE ONE TABLET BY MOUTH EVERY MORNING SOLD: 10/08/2020 [facility] 10-325 mg 09/27/2020 12:00:00 AM EST tablet 60 TAKE ONE TABLET BY MOUTH FOUR TIMES A DAY MAXIMUM DAILY DOSE = 4 TABLETS TAKE ONE TABLET BY MOUTH FOUR TIMES A DAY MAXIMUM DAILY DOSE = 4 TABLETS SOLD: 09/27/2020 [facility] 90 mcg/actuation 09/20/2020 12:00:00 AM EST HFA aerosol inha ler 18 INHALE TWO PUFFS BY MOUTH FOUR TIMES A DAY NEEDED INHALE TWO PUFFS BY MOUTH FOUR TIMES A DAY NEEDED SOLD: 01/17/2021 [facility] 90 mcg/actuation 09/20/2020 12:00:00 AM EST HFA aerosol inha ler 18 INHALE TWO PUFFS BY MOUTH FOUR TIMES A DAY NEEDED INHALE TWO PUFFS BY MOUTH FOUR TIMES A DAY NEEDED SOLD: 09/24/2020 [facility] 90 mcg/actuation 09/20/2020 12:00:00 AM EST HFA aerosol inha ler 18 INHALE TWO PUFFS BY MOUTH FOUR TIMES A DAY NEEDED INHALE TWO PUFFS BY MOUTH FOUR TIMES A DAY NEEDED SOLD: 12/20/2020 [facility] 90 mcg/actuation 09/20/2020 12:00:00 AM EST HFA aerosol inha ler 18 INHALE TWO PUFFS BY MOUTH FOUR TIMES A DAY NEEDED INHALE TWO PUFFS BY MOUTH FOUR TIMES A DAY NEEDED SOLD: 10/19/2020 [facility] 90 mcg/actuation 09/20/2020 12:00:00 AM EST HFA aerosol inha ler 18 INHALE TWO PUFFS BY MOUTH FOUR TIMES A DAY NEEDED INHALE TWO PUFFS BY MOUTH FOUR TIMES A DAY NEEDED SOLD: 11/19/2020 [facility] 90 mcg/actuation 09/20/2020 12:00:00 AM EST HFA aerosol inha ler 18 INHALE TWO PUFFS BY MOUTH FOUR TIMES A DAY NEEDED INHALE TWO PUFFS BY MOUTH FOUR TIMES A DAY NEEDED SOLD: 02/14/2021 [facility] Famotidine 40 MG Oral Tablet FAMOTIDINE 09/19/2020 12:00:00 AM EST tab let 60 TAKE 1 TABLET BY MOUTH TWICE DAILY TAKE 1 TABLET BY MOUTH TWICE DAILY SOLD: 12/28/2020 [facility] 60 ACTUAT Albuterol 0.09 MG/ACTUAT Metered Dose Inhaler Albu terol Sulfate HFA 09/19/2020 12:00:00 AM EST RESPIRATORY active [facility] ([facility], ) 40 mg 09/19/2020 12:00:00 AM EST tablet 60 TAKE 1 TABLET BY MOUTH TWICE DAILY TAKE 1 TABLET BY MOUTH TWICE DAILY SOLD: 11/22/2020 [facility] Famotidine 40 MG Oral Tablet FAMOTIDINE 09/19/2020 12:00:00 AM EST tab let 60 TAKE 1 TABLET BY MOUTH TWICE DAILY TAKE 1 TABLET BY MOUTH TWICE DAILY SOLD: 01/28/2021 [facility] Famotidine 40 MG Oral Tablet FAMOTIDINE 09/19/2020 12:00:00 AM EST tab let 60 TAKE 1 TABLET BY MOUTH TWICE DAILY TAKE 1 TABLET BY MOUTH TWICE DAILY SOLD: 10/25/2020 [facility] Famotidine 40 MG Oral Tablet FAMOTIDINE 09/19/2020 12:00:00 AM EST tab let 60 TAKE 1 TABLET BY MOUTH TWICE DAILY TAKE 1 TABLET BY MOUTH TWICE DAILY SOLD: 02/26/2021 [facility] Famotidine 40 MG Oral Tablet FAMOTIDINE 09/19/2020 12:00:00 AM EST tab let 60 TAKE 1 TABLET BY MOUTH TWICE DAILY TAKE 1 TABLET BY MOUTH TWICE DAILY SOLD: 09/24/2020 [facility] 10-325 mg 09/13/2020 12:00:00 AM EST tablet 60 TAKE 1 TABLET BY MOUTH 4 TIMES A DAY MAXIMUM DAILY DOSE = 4 TABLETS TAKE 1 TABLET BY MOUTH 4 TIMES A DAY MAXIMUM DAILY DOSE = 4 TABLETS SOLD: 09/13/2020 [facility] 5 mg 09/13/2020 12:00:00 AM EST tablet 60 TAKE ONE TABLET BY MOUTH TWICE A DAY TAKE ONE TABLET BY MOUTH TWICE A DAY SOLD: 09/15/2020 [facility] tizanidine 2 MG Oral Tablet TIZANIDINE HCL 08/30/2020 12:00:00 AM EST tablet 60 TAKE 1 TABLET BY MOUTH EVERY 8 HOURS NEEDED MAXIMUM DAILY DOSE = FOUR TABLETS TAKE 1 TABLET BY MOUTH EVERY 8 HOURS NEEDED MAXIMUM DAILY DOSE = FOUR TABLETS SOLD: 09/15/2020 [facility] tizanidine 2 MG Oral Tablet TIZANIDINE HCL 08/30/2020 12:00:00 AM EST tablet 60 TAKE 1 TABLET BY MOUTH EVERY 8 HOURS NEEDED MAXIMUM DAILY DOSE = FOUR TABLETS TAKE 1 TABLET BY MOUTH EVERY 8 HOURS NEEDED MAXIMUM DAILY DOSE = FOUR TABLETS SOLD: 08/31/2020 [facility] 10-325 mg 08/30/2020 12:00:00 AM EST tablet 60 TAKE ONE TABLET BY MOUTH FOUR TIMES A DAY MAXIMUM DAILY DOSE = 4 TABLETS TAKE ONE TABLET BY MOUTH FOUR TIMES A DAY MAXIMUM DAILY DOSE = 4 TABLETS SOLD: 08/31/2020 [facility] tizanidine 2 MG Oral Tablet TIZANIDINE HCL 08/30/2020 12:00:00 AM EST tablet 60 TAKE 1 TABLET BY MOUTH EVERY 8 HOURS NEEDED MAXIMUM DAILY DOSE = FOUR TABLETS TAKE 1 TABLET BY MOUTH EVERY 8 HOURS NEEDED MAXIMUM DAILY DOSE = FOUR TABLETS SOLD: 10/08/2020 [facility] 5 % 08/22/2020 12:00:00 AM EST adhesive patch,medicate d 90 USE DIRECTED 12 HOURS ON & 12 HOURS OFF UP TO 3 PATCHES A DAY USE DIRECTED 12 HOURS ON & 12 HOURS OFF UP TO 3 PATCHES A DAY SOLD: 08/28/2020 [facility] 5 % 08/22/2020 12:00:00 AM EST adhesive patch,medicate d 90 USE DIRECTED 12 HOURS ON & 12 HOURS OFF UP TO 3 PATCHES A DAY USE DIRECTED 12 HOURS ON & 12 HOURS OFF UP TO 3 PATCHES A DAY SOLD: 01/11/2021 [facility] Lidocaine Hydrochloride 0.05 MG/MG Transdermal Patch [Lidode rm] Lidoderm 08/22/2020 12:00:00 AM EST active [facility] ([facility]) 5 % 08/22/2020 12:00:00 AM EST adhesive patch,medicate d 90 USE DIRECTED 12 HOURS ON & 12 HOURS OFF UP TO 3 PATCHES A DAY USE DIRECTED 12 HOURS ON & 12 HOURS OFF UP TO 3 PATCHES A DAY SOLD: 09/27/2020 [facility] 10-325 mg 08/17/2020 12:00:00 AM EDT tablet 60 TAKE ONE TABLET BY MOUTH FOUR TIMES A DAY MAXIMUM DAILY DOSE = 4 TABLETS TAKE ONE TABLET BY MOUTH FOUR TIMES A DAY MAXIMUM DAILY DOSE = 4 TABLETS SOLD: 08/17/2020 [facility] 20 mg 08/16/2020 12:00:00 AM EDT tablet 30 TAKE ONE TABLET BY MOUTH EVERY DAY TAKE ONE TABLET BY MOUTH EVERY DAY SOLD: 10/15/2020 [facility] 20 mg 08/16/2020 12:00:00 AM EDT tablet 30 TAKE ONE TABLET BY MOUTH EVERY DAY TAKE ONE TABLET BY MOUTH EVERY DAY SOLD: 09/15/2020 [facility] Acyclovir 400 MG Oral Tablet ACYCLOVIR 08/16/2020 12:00:00 AM EDT tabl et 60 TAKE ONE TABLET BY MOUTH TWICE A DAY TAKE ONE TABLET BY MOUTH TWICE A DAY SOLD: 08/17/2020 [facility] 20 mg 08/16/2020 12:00:00 AM EDT tablet 30 TAKE ONE TABLET BY MOUTH EVERY DAY TAKE ONE TABLET BY MOUTH EVERY DAY SOLD: 08/17/2020 [facility] Acyclovir 400 MG Oral Tablet ACYCLOVIR 08/16/2020 12:00:00 AM EDT tabl et 60 TAKE ONE TABLET BY MOUTH TWICE A DAY TAKE ONE TABLET BY MOUTH TWICE A DAY SOLD: 09/15/2020 [facility] Acyclovir 400 MG Oral Tablet ACYCLOVIR 08/16/2020 12:00:00 AM EDT tabl et 60 TAKE ONE TABLET BY MOUTH TWICE A DAY TAKE ONE TABLET BY MOUTH TWICE A DAY SOLD: 10/15/2020 [facility] 0.05 % 08/04/2020 12:00:00 AM EDT shampoo 118 APPLY TO SCALP AND LET SIT FOR 15 MINUTES THEN RINSE OFF TWICE A WEEK APPLY TO SCALP AND LET SIT FOR 15 MINUTES THEN RINSE OFF TWICE A WEEK SOLD: 08/13/2020 [facility] 100 mg 08/04/2020 12:00:00 AM EDT capsule 21 TAKE ONE CAPSULE BY MOUTH EVERY DAY FOR 21 DAYS TAKE ONE CAPSULE BY MOUTH EVERY DAY FOR 21 DAYS SOLD: 08/04/2020 [facility] 10-325 mg 08/03/2020 12:00:00 AM EDT tablet 60 TAKE ONE TABLET BY MOUTH FOUR TIMES A DAY MAXIMUM DAILY DOSE = 4 TAKE ONE TABLET BY MOUTH FOUR TIMES A DA Y MAXIMUM DAILY DOSE = 4 SOLD: 08/03/2020 [facility] 75-200 mg-mcg 08/03/2020 12:00:00 AM EDT tablet,IR,delayed r el,biphasic 60 TAKE ONE TABLET BY MOUTH TWICE A DAY TAKE ONE TABLET BY MOUTH TWICE A DAY SOLD: 08/03/2020 [facility] 10-325 mg 07/20/2020 12:00:00 AM EDT tablet 60 TAKE ONE TABLET BY MOUTH FOUR TIMES A DAY MAX 4TABS/DAY TAKE ONE TABLET BY MOUTH FOUR TIMES A DA Y MAX 4TABS/DAY SOLD: 07/20/2020 [facility] 400 mg 07/19/2020 12:00:00 AM EDT capsule 120 TAKE ONE CAPSULE BY MOUTH FOUR TIMES A DAY TAKE ONE CAPSULE BY MOUTH FOUR TIMES A DAY SOLD: 08/17/2020 [facility] 5 mg 07/19/2020 12:00:00 AM EDT tablet 30 TAKE ONE TABLET BY MOUTH EVERY DAY TAKE ONE TABLET BY MOUTH EVERY DAY SOLD: 08/17/2020 [facility] 400 mg 07/19/2020 12:00:00 AM EDT capsule 120 TAKE ONE CAPSULE BY MOUTH FOUR TIMES A DAY TAKE ONE CAPSULE BY MOUTH FOUR TIMES A DAY SOLD: 09/15/2020 [facility] 400 mg 07/19/2020 12:00:00 AM EDT capsule 120 TAKE ONE CAPSULE BY MOUTH FOUR TIMES A DAY TAKE ONE CAPSULE BY MOUTH FOUR TIMES A DAY SOLD: 11/19/2020 [facility] 400 mg 07/19/2020 12:00:00 AM EDT capsule 120 TAKE ONE CAPSULE BY MOUTH FOUR TIMES A DAY TAKE ONE CAPSULE BY MOUTH FOUR TIMES A DAY SOLD: 10/15/2020 [facility] 5 mg 07/19/2020 12:00:00 AM EDT tablet 30 TAKE ONE TABLET BY MOUTH EVERY DAY TAKE ONE TABLET BY MOUTH EVERY DAY SOLD: 07/19/2020 [facility] 400 mg 07/19/2020 12:00:00 AM EDT capsule 120 TAKE ONE CAPSULE BY MOUTH FOUR TIMES A DAY TAKE ONE CAPSULE BY MOUTH FOUR TIMES A DAY SOLD: 12/20/2020 [facility] 400 mg 07/19/2020 12:00:00 AM EDT capsule 120 TAKE ONE CAPSULE BY MOUTH FOUR TIMES A DAY TAKE ONE CAPSULE BY MOUTH FOUR TIMES A DAY SOLD: 07/19/2020 [facility] tizanidine 2 MG Oral Tablet TIZANIDINE HCL 07/13/2020 12:00:00 AM EDT tablet 60 TAKE ONE TABLET BY MOUTH EVERY 8 HOURS A S NEEDED MAXIMUM DAILY DOSE = FOUR TABLETS TAKE ONE TABLET BY MOUTH EVERY 8 HOURS A S NEEDED MAXIMUM DAILY DOSE = FOUR TABLETS SOLD: 08/17/2020 [facility] 2 mg 07/13/2020 12:00:00 AM EDT tablet 60 TAKE ONE TABLET BY MOUTH EVERY 8 HOURS NEEDED MAXIMUM DAILY DOSE = FOUR TABLETS TAKE ONE TABLET BY MOUTH EVERY 8 HOURS NEEDED MAXIMUM DAILY DOSE = FOUR TABLETS SOLD: 07/15/2020 [facility] 2 mg 07/13/2020 12:00:00 AM EDT tablet 60 TAKE ONE TABLET BY MOUTH EVERY 8 HOURS NEEDED MAXIMUM DAILY DOSE = FOUR TABLETS TAKE ONE TABLET BY MOUTH EVERY 8 HOURS NEEDED MAXIMUM DAILY DOSE = FOUR TABLETS SOLD: 08/03/2020 [facility] 40 mg 07/11/2020 12:00:00 AM EDT capsule 30 TAKE ONE CAPSULE BY MOUTH EVERY MORNING TAKE ONE CAPSULE BY MOUTH EVERY MORNING SOLD: 09/13/2020 [facility] 40 mg 07/11/2020 12:00:00 AM EDT capsule 30 TAKE ONE CAPSULE BY MOUTH EVERY MORNING TAKE ONE CAPSULE BY MOUTH EVERY MORNING SOLD: 07/15/2020 [facility] 40 mg 07/11/2020 12:00:00 AM EDT capsule 30 TAKE ONE CAPSULE BY MOUTH EVERY MORNING TAKE ONE CAPSULE BY MOUTH EVERY MORNING SOLD: 08/13/2020 [facility] 24 HR Bupropion Hydrochloride 300 MG Extended Release Oral T ablet BUPROPION HCL 07/10/2020 12:00:00 AM EDT tablet extended release 24 hr 30 TAKE ONE TABLET BY MOUTH EVERY MORNING TAKE ONE TABLET BY MOUTH EVERY MORNING SOLD: 08/13/2020 [facility] 24 HR Bupropion Hydrochloride 300 MG Extended Release Oral T ablet BUPROPION HCL 07/10/2020 12:00:00 AM EDT tablet extended release 24 hr 30 TAKE ONE TABLET BY MOUTH EVERY MORNING TAKE ONE TABLET BY MOUTH EVERY MORNING SOLD: 07/15/2020 [facility] 24 HR Bupropion Hydrochloride 300 MG Extended Release Oral T ablet BUPROPION HCL 07/10/2020 12:00:00 AM EDT tablet extended release 24 hr 30 TAKE ONE TABLET BY MOUTH EVERY MORNING TAKE ONE TABLET BY MOUTH EVERY MORNING SOLD: 09/13/2020 [facility] 10-325 mg 07/05/2020 12:00:00 AM EDT tablet 60 TAKE 1 TABLET BY MOUTH 4 TIMES A DAY MAX DAILY DOSE = 4 TABLETS TAKE 1 TABLET BY MOUTH 4 TIMES A DAY MAX DAILY DOSE = 4 TABLETS SOLD: 07/05/2020 [facility] 40 mg 06/17/2020 12:00:00 AM EDT tablet 60 TAKE 1 TABLET BY MOUTH TWICE DAILY TAKE 1 TABLET BY MOUTH TWICE DAILY SOLD: 07/19/2020 [facility] 40 mg 06/17/2020 12:00:00 AM EDT tablet 60 TAKE 1 TABLET BY MOUTH TWICE DAILY TAKE 1 TABLET BY MOUTH TWICE DAILY SOLD: 08/17/2020 [facility] 2 mg 06/05/2020 12:00:00 AM EDT tablet 60 TAKE 1 TABLET BY MOUTH EVERY 8 HOURS NEEDED MAXIMUM DAILY DOSE =4 TABLETS TAKE 1 TABLET BY MOUTH EVERY 8 HOURS NEEDED MAXIMUM DAILY DOSE =4 TABLETS SOLD: 07/05/2020 [facility] Acyclovir 400 MG Oral Tablet ACYCLOVIR 05/24/2020 12:00:00 AM EDT tabl et 60 TAKE ONE TABLET BY MOUTH TWICE A DAY TAKE ONE TABLET BY MOUTH TWICE A DAY SOLD: 07/19/2020 [facility] 20 mg 05/24/2020 12:00:00 AM EDT tablet 30 TAKE ONE TABLET BY MOUTH EVERY DAY TAKE ONE TABLET BY MOUTH EVERY DAY SOLD: 07/19/2020 [facility] 90 mcg/actuation 04/06/2020 12:00:00 AM EDT HFA aerosol inha ler 18 INHALE TWO PUFFS BY MOUTH FOUR TIMES A DAY NEEDED INHALE TWO PUFFS BY MOUTH FOUR TIMES A DAY NEEDED SOLD: 08/03/2020 [facility] 90 mcg/actuation 04/06/2020 12:00:00 AM EDT HFA aerosol inha ler 18 INHALE TWO PUFFS BY MOUTH FOUR TIMES A DAY NEEDED INHALE TWO PUFFS BY MOUTH FOUR TIMES A DAY NEEDED SOLD: 08/28/2020 [facility] 90 mcg/actuation 04/06/2020 12:00:00 AM EDT HFA aerosol inha ler 18 INHALE TWO PUFFS BY MOUTH FOUR TIMES A DAY NEEDED INHALE TWO PUFFS BY MOUTH FOUR TIMES A DAY NEEDED SOLD: 07/05/2020 [facility] Insurance Providers Payer name Policy type / Coverage type Policy ID Covered republican ID Covered republican's relationship to galvez Policy Galvez Plan Information [employer] (pr) Medigap Part B [id number] Self [id number] [employer] (pr) Medigap Part B [id number] Self [id number] [employer] (pr) Medigap Part B [id number] Self [employer] [id number] SP [id number] [employer] [id number] SP [id number] [employer] [id number] SP [id number] MEDICARE [id number] SP [id number] Medicare Medicare Primary [id number]. [id number] Self [id number] MEDICARE 4 [id number] 1 [id number] A MEDICARE [id number] SP [id number] A MEDICARE A [id number] Self [id number] A Medicare Medicare Primary [id number] Self Medicare Medicare Primary [id number] .[id number]. 99.802.08745.0 Self [id number] Medicare Medicare Primary [id number]. 99.802.48110.0 Self [id number] [place] [id number] 2.16840.1.794814.3.227.99.991.87315.0 Self 0 [id number] [place] Medicare Primary [id number] 2.16.840.1.389785.3.227.99.991.51504.0 Self 0 [id number] [place] Medicare Primary [id number] 2.16840.1.198538.3.227.99.991.77651.0 Self 0 [id number] [place] Medicare Primary [id number] 2.0.1.537962.3.227.99.991.97615.0 Self 0 [id number] [place] Medicare Primary [id number] 2.0.1.947960.3.227.99.991.40062.0 Self 0 [id number] [place] Medicare Primary [id number] Self DME Jurisdiction A [facility] C [id number] SELF [id number] [employer] F [id number] SELF [id number] Medicare C [id number] SELF [id number] A Medicare C [id number] SELF [id number] [facility] F [id number] SELF [id number] Medicare C [id number] SELF [id number] A UMR [facility] [id number] SP [id number] [facility] [id number] [id number] BS [facility] [id number] HU2 [id number] Umr Commercial [id number] 2.0.1.412553.3.227.99.8646.55620.0 Self [id number] Umr Commercial [id number] 2.0.1.385424.3.227.99.8646.22179.0 Self [id number] UMR [facility] [id number] SP [id number] Umr (pr) Medigap Part B [id number] 2.840.1.759997.3.227.99.991.3815 1.0 Self [id number] [place] Medicare Primary [id number] 2.0.1.453806.3.227.99.991.88855.0 Self 0 [id number] [place] Medicare Primary [id number] 2.16.840.1.140657.3.227.99.991.15011.0 Self 0 [id number] [place] Medicare Primary [id number] 2.16.840.1.644796.3.227.99.991.27621.0 Self 0 [id number] Umr (pr) Medigap Part B [id number] 2.16.840.1.560370.3.227.99.991.3815 1.0 Self [id number] [place] Medicare Primary [id number] 2.16.840.1.537076.3.227.99.991.13719.0 Self [id number] Umr (pr) Medigap Part B [id number] 2.16.840.1.179254.3.227.99.991.3815 1.0 Self [id number] [place] Primary [id number] Self [id number] Umr (pr) Medigap Part B [id number] 2.16.840.1.339972.3.227.99.991.3815 1.0 Self [id number] [place] Medicare Primary [id number] 2.16.840.1.724166.3.227.99.991.32226.0 Self 0 [id number] [place] Medicare Primary [id number] 2.16.840.1.123615.3.227.99.991.79591.0 Self [id number] Umr (pr) Medigap Part B [id number] 2.16.840.1.893708.3.227.99.991.3815 1.0 Self [id number] [place] Medicare Primary [id number] Self [id number] Umr (pr) Medigap Part B [id number] Self [id number] Umr (pr) Medigap Part B [id number] 2.16.840.1.779791.3.227.99.991.3815 1.0 Self [id number] [place] Medicare Primary [id number] 2.16.840.1.643979.3.227.99.991.68991.0 Self 0 [id number] Umr (pr) Medigap Part B [id number] 2.16.840.1.861217.3.227.99.991.3815 1.0 Self [id number] Umr (pr) Medigap Part B [id number] 2.16.840.1.892081.3.227.99.991.3815 1.0 Self [id number] Umr (pr) Medigap Part B [id number] Self [id number] [place] Medicare Primary [id number] 2.16.840.1.538926.3.227.99.991.62401.0 Self 0 [id number] Umr (pr) Medigap Part B [id number] 2.16.840.1.380633.3.227.99.991.3815 1.0 Self [id number] [place] Medicare Primary [id number] 2.16.840.1.951929.3.227.99.991.35277.0 Self 0 [id number] Medicare [place] Medicare Primary [id number] 2.16.840.1.524625.3.227.99.991.13216.0 Self [id number] Umr (pr) Medigap Part B [id number] 2.16.840.1.770219.3.227.99.991.3815 1.0 Self [id number] Umr (pr) Medigap Part B [id number] 2.16.840.1.060942.3.227.99.991.3815 1.0 Self [id number] [place] Medicare Primary [id number] 2.16.840.1.624000.3.227.99.991.09938.0 Self 0 [id number] UMR [facility] [id number] SP [id number] UMR F [id number] SELF [id number] [facility]-O/P [id number] 18 [id number] UMR [facility] [id number] SP [id number] UMR [facility] [id number] SP [id number] UMR O [id number] S [id number] MEDICARE C [id number] S [id number] MEDICARE C [id number] S [id number] A MEDICARE [id number] SP [id number] A Medicare Dme Supplies Medigap Part B [id number] Self [id number] Medicare Dme Supplies Medigap Part B [id number] Self [id number] Medicare Dme Supplies Medigap Part B [id number] 2.0.1.526285.3.227.99.991.14374.0 Self 0 [id number] Medicare [place]/[facility] Medicare Primary [id number] 2.0.1.293277.3.227.99.8646.41266.0 Self [id number] Medicare Dme Supplies Medigap Part B [id number] 2.0.1.433049.3.227.99.991.05358.0 Self 0 [id number] Medicare Dme Supplies Medigap Part B [id number] 2.0.1.865312.3.227.99.991.58825.0 Self 0 [id number] Medicare Dme Supplies Medigap Part B [id number] 2.0.1.080925.3.227.99.991.99252.0 Self 0 [id number] Medicare Dme Supplies Medigap Part B [id number] 2.0.1.936856.3.227.99.991.73909.0 Self 0 [id number] Umr Medigap Part B [id number] 2.16.840.1.999563.3.227.99.802.4679 4.0 Self [id number] Medicare [place]/NGS Medicare Primary [id number] 2.16.840.1.689518.3.227.99.8646.45460.0 Self [id number] Medicare Dme Supplies Medigap Part B [id number] 2.16.840.1.266027.3.227.99.991.25510.0 Self 0 [id number] Medicare Dme Supplies Medigap Part B [id number] 2.16.840.1.917466.3.227.99.991.54794.0 Self 0 [id number] Medicare Dme Supplies Medigap Part B [id number] 2.16.840.1.045431.3.227.99.991.78208.0 Self 0 [id number] Medicare Dme Supplies Medigap Part B [id number] 2.16.840.1.055643.3.227.99.991.07827.0 Self 0 [id number] Medicare Dme Supplies Medigap Part B [id number] 2.16.840.1.078343.3.227.99.991.33059.0 Self 0 [id number] Medicare Dme Supplies Medigap Part B [id number] 2.16.840.1.303011.3.227.99.991.22089.0 Self 0 [id number] UMR O [id number] S [id number] [employer] PPO O [id number] S [id number] [place]/NGS Medicare Primary [id number] 2.16.840.1.175293.3.227.99.8646.63370.0 Self [id number] Medicare [place]/NGS Medicare Primary [id number] 2.16.840.1.373847.3.227.99.8646.35795.0 Self [id number] [employer] Medigap Part B [id number] 2.16.840.1.208469.3.227.99.8646.322 47.0 Self [id number] Medicare [place]/NGS Medicare Primary [id number] 2.16.840.1.934977.3.227.99.8646.87595.0 Self [id number] [employer] Medigap Part B [id number] 2.16.840.1.640560.3.227.99.802.4679 4.0 Self [id number] [facility]-O/P [id number] 18 [id number] MEDICARE PART A -O/P [id number] 18 [id number] Medicare [place]/NGS Medicare Primary [id number] 2.16840.1.001057.3.227.99.8646.22435.0 Self [id number] Medicare [place]/NGS Medicare Primary [id number] 2.16840.1.684761.3.227.99.8646.77551.0 Self [id number] Medicare [place]/NGS Medicare Primary [id number] 2.16840.1.037922.3.227.99.8646.00487.0 Self [id number] Medicare [place]/NGS Medicare Primary [id number] 2.16840.1.269806.3.227.99.8646.78160.0 Self [id number] Medicare Dme Supplies Medigap Part B [id number] 2.16840.1.060988.3.227.99.991.38662.0 Self 0 [id number] Medicare Dme Supplies Medigap Part B [id number] 2.16840.1.416421.3.227.99.991.51450.0 Self 0 [id number] Medicare [place]/NGS Medicare Primary [id number] 2.16840.1.007933.3.227.99.8646.12984.0 Self [id number] Medicare Dme Supplies Medigap Part B [id number] 2.16840.1.798720.3.227.99.991.00447.0 Self 0 [id number] Medicare Dme Supplies Medigap Part B [id number] 2.16.840.1.129175.3.227.99.991.31438.0 Self [id number] Medicare [place]/NGS Medicare Primary [id number] 2.16.840.1.890113.3.227.99.8646.59162.0 Self [id number] Medicare Dme Supplies Medigap Part B [id number] 2.16.840.1.877295.3.227.99.991.96874.0 Self 0 [id number] [employer] Medigap Part B 2.16.840.1.622420.3.227.99.8646.322 47.0 Self Medicare [place]/NGS Medicare Primary 2.16.840.1.59900 3.3.227.99.8646.44121.0 Self Medicare Dme Supplies Medigap Part B [id number] Self [employer] Medigap Part B [id number] Self Ppo [facility] [id number] SP [id number] [employer] U [id number] Self [id number] [employer] PPO 2 [id number] 1 [id number] SELF PAY 2 UNAVAILABLE 1 UNAVAILA BLE NALC 2 UNAVAILABLE 1 UNAVAILA BLE [place] 1 [id number] 1 [id number] MEDICARE -O/P [id number] 18 [id number] MEDICARE [id number] SP [id number] Problems, Conditions, and Diagnoses Code Display Name Description Problem Type Effective Dates Data Source(s) I87.2 70879154 Venous stasis dermatitis of both lower ex tremities Problem 01/18/2021 12:00:00 AM EDT eCW1 ([facility]) L97.921 423241750 Ulcer of left lower extremity, l imited to breakdown of skin Problem 01/18/2021 12:00:00 AM EDT eCW1 ([facility]) L97.911 999266323 Ulcer of right lower extremity, limited to breakdown of skin Problem 01/18/2021 12:00:00 AM EDT eCW1 ([facility]) T14.8XXA 269971526 Open wound Problem 01/17/2021 12:00:00 AM ED T eCW1 ([facility]) [id number] Osteoporosis Osteoporosis Problem 10/30/2020 12:00:00 A Christiano ZAFARENT ([facility] ) Surgeries/Procedures Procedure Description Date Indications Data Source(s) OFFICE OUTPATIENT VISIT 25 MINUTES 08/02/2021 12:00:00 AM EDT [facility] ([facility] ) NJX ANES&/STRD W/IMG TFRML EDRL LMBR/SAC 1 LVL 021 12:00:00 AM EDT [facility] ([facility] ) Epidurography Radiological Supervision & Interpretation 07/16/2021 12:00:00 AM EDT [facility] Moderate Sedation Services; Same Phys Intl 15 Mins; PT >= 5 Years 07/16/2021 12:00:00 AM EDT [facility] Spirometry 06/18/2021 12:00:00 AM EDT Christiano SOLORZANO ([facility], ) OFFICE OUTPATIENT VISIT 25 MINUTES 06/18/2021 12:00:00 AM EDT [facility] ([facility], ) ARTHROCENTESIS ASPIR&/INJECTION MAJOR JT/BURSA 021 12:00:00 AM EDT [facility] ([facility]) OFFICE OUTPATIENT VISIT 40 MINUTES 06/07/2021 12:00:00 AM EDT [facility] ([facility]) X-Ray Spine Lumbosacral Complete Inc Bending Views Min Of 6 05/09/2021 12:00:00 AM EDT [facility] OFFICE OUTPATIENT VISIT 25 MINUTES 05/09/2021 12:00:00 AM EDT [facility] ([facility] ) OFFICE OUTPATIENT VISIT 25 MINUTES 04/11/2021 12:00:00 AM EDT [facility] ([facility], ) OFFICE OUTPATIENT VISIT 25 MINUTES 02/28/2021 12:00:00 AM EDT [facility] ([facility], ) FINE NEEDLE ASPIRATION W/O IMAGING GUIDANCE 02/13/2021 12:00:00 AM EDT eCW ([facility]) ARTHROCENTESIS ASPIR&/INJECTION MAJOR JT/BURSA 021 12:00:00 AM EDT [facility] ([facility]) RADIOLOGIC EXAMINATION PELVIS 1/2 VIEWS 02/07/2021 12: 00:00 AM EDT [facility] ([facility]) OFFICE OUTPATIENT VISIT 15 MINUTES 02/07/2021 12:00:00 AM EDT [facility] ([facility]) FINE NEEDLE ASPIRATION W/O IMAGING GUIDANCE 01/29/2021 12:00:00 AM EDT eCW1 ([facility]) FINE NEEDLE ASPIRATION W/O IMAGING GUIDANCE 01/25/2021 12:00:00 AM EDT eCW1 ([facility]) OFFICE OUTPATIENT VISIT 15 MINUTES 2021 12:00:00 AM EDT [facility] ([facility], ) OFFICE OUTPATIENT VISIT 15 MINUTES 12/26/2020 12:00:00 AM EST [facility] ([facility]) Spirometry 12/14/2020 12:00:00 AM EST M [facility]ENT ([facility], ) OFFICE OUTPATIENT VISIT 15 MINUTES 12/14/2020 12:00:00 AM EST [facility] ([facility], ) RADIOLOGIC EXAMINATION PELVIS 1/2 VIEWS 12/13/2020 12: 00:00 AM EST [facility] ([facility]) OFFICE OUTPATIENT VISIT 15 MINUTES 12/13/2020 12:00:00 AM EST [facility] ([facility]) OFFICE OUTPATIENT VISIT 25 MINUTES 11/15/2020 12:00:00 AM EST [facility] ([facility]) Omt 5-6 Body Regions 09/27/2020 12:00:00 AM EST [facility] ([facility], ) Physical Therapy Eval - Mod Complexity 08/29/2020 12:0 0:00 AM EST [facility] ([facility]) Omt 5-6 Body Regions 08/22/2020 12:00:00 AM EST [facility] ([facility], ) X-Ray Hip Unilateral With Pelvis 2-3 Views 08/22/2020 12:00:00 AM EST [facility] ([facility]) Results ID Date Data Source [id number] 08/03/2021 10:11:00 AM EDT [facility] ([facility]) Name Value Range Interpretation Code Description Data Tootie rce(s) Supporting Document(s) Laboratory test finding (navigational concept) Laboratory test result [facility] ([facility] ) ID Date Data Source [id number] 07/04/2021 10:12:00 AM EDT [facility] ([facility]) Name Value Range Interpretation Code Description Data Tootie rce(s) Supporting Document(s) Platelet aggregation collagen induced [Presence] in Platelet rich plasma 104 s 56-103 [facility] ([facility]) Results may be affected by platelet coun ts less than 150,000/mL or hematocrits less than 35%. ID Date Data Source [id number] 07/04/2021 10:12:00 AM EDT [facility] ([facility] ) Name Value Range Interpretation Code Description Data Tootie rce(s) Supporting Document(s) Collagen Epinephrine 173 s 74-162 [facility] ([facility] ) Results may be affected by platelet coun ts less than 150,000/mL or hematocrits less than 35%. If COL/EPI is NORMAL, COL/ADP is not performed. Result Interpretation: COL/EPI COL/ADP NORMAL NORMAL NORMAL ASA ABNORMAL NORMAL vWD ABNORMAL NORMAL GLANZMANN'S ABNORMAL ABNORMAL THROMBASTHENIA POSSIBLE DRUG ABNORMAL ABNORMAL EFFECT ID Date Data Source [id number] 07/04/2021 10:12:00 AM EDT [facility] ([facility]) Name Value Range Interpretation Code Description Data Tootie rce(s) Supporting Document(s) Prothrombin time (PT) 32.6 s 25.9-37.0 [facility] ([facility] ) ID Date Data Source [id number] 07/04/2021 10:12:00 AM EDT [facility] ([facility]) Name Value Range Interpretation Code Description Data Tootie rce(s) Supporting Document(s) Inr 0.92 [facility] ([facility] ) THERAPUTIC HUMAN INR VALUES INDICATIONS NORMAL RANGES PROPHYLAXIS/TREATMENT OF: VENOUS THROMBOSIS 2.0-3.0 PULMONARY EMBOLISM 2.0-3.0 PREVENTION OF SYSTEMIC EMBOLISM FROM: TISSUE HEART VALVES 2.0-3.0 ACUTE MYOCARDIAL INFARCTION 2.0-3.0 VALVULAR HEART DISEASE 2.0-3.0 ATRIAL FIBRILLATION 2.0-3.0 MECHANICAL VALVES(HIGH RISK) 2.5-3.5 RECURRENT MYOCARDIAL INFARCTION 2.5-3.5 Prothrombin Time 12.8 s 12.7-14.5 [facility] ([facility] ) ID Date Data Source [id number] 07/04/2021 10:12:00 AM EDT [facility] ([facility]) Name Value Range Interpretation Code Description Data Tootie rce(s) Supporting Document(s) Platelets [#/volume] in Blood by Automated count 230 10 150-450 [facility] ([facility]) ID Date Data Source [id number] 06/19/2021 01:48:00 PM EDT [facility] ([facility]) Name Value Range Interpretation Code Description Data Tootie rce(s) Supporting Document(s) Covid Rapid Testing Laboratory test result [facility] ([facility]) ID Date Data Source [id number] 06/19/2021 12:00:00 AM EDT [facility] Name Value Range Interpretation Code Description Data Tootie rce(s) Supporting Document(s) Covid Rapid Testing Negative [facility] This lab was ordered by [place] and rep orted by [facility]. ID Date Data Source [id number] 06/18/2021 10:56:00 AM EDT [facility] ([facility], ) Name Value Range Interpretation Code Description Data Tootie rce(s) Supporting Document(s) FVC-Pred 3.02 L [facility] ([facility]) PDFReport Laboratory test result [facility] ([facility], ) FVC-%Pred-Pre 61 L [facility] ([facility]) FVC-Pre 1.86 L [facility] ([facility]) FVC-LLN 2.28 L [facility] ([facility]) Fev1-Pred 2.27 L [facility] ([facility]) Fev1-Pre 1.12 L [facility] ([facility]) Fev1-%Pred-Pre 49 L [facility] ([facility]) Fev6-Pred 2.88 L [facility] ([facility]) Fev1-LLN 1.65 L [facility] ([facility]) Fev6-Pre 1.84 L [facility] ([facility]) Ctv2yed-Rgwi 75 % [facility] ([facility]) Fev6-LLN 2.15 L [facility] ([facility], ) Fev6-%Pred-Pre 64 L [facility] ([facility]) Aqs3jrv-Stu 60 % [facility] ([facility]) Vbs2uit-Yhzt 95 % [facility] ([facility]) Kgt9smh-ZTE 65 % [facility] ([facility]) Dkn5qlc-%Pred-Pre 80 % [facility] ([facility]) Pvv4ggk-%Pred-Pre 103 % [facility] ([facility]) Upo8fwz-Alw 99 % [facility] ([facility]) FEFMax-Pre 2.22 L/E/sec [facility] ([facility]) FEFMax-Pred 5.47 L/E/sec [facility] ([facility]) FEFMax-%Pred-Pre 40 L/E/sec [facility] ([facility]) FEFMax-LLN 3.65 L/E/sec [facility] ([facility]) Ywl8520-Avrp 1.73 L/E/sec [facility] ([facility]) Kwe1362-Pep 0.54 L/E/sec [facility] ([facility]) Vaq0448-%Pred-Pre 31 L/E/sec [facility] ([facility]) Pyf8970-AZC 0.41 L/E/sec [facility] ([facility]) ExpTime-Pre 6.99 sec [facility] ([facility]) Ift3zgw8-Rfd 61 % [facility] ([facility]) Jgy5ztj6-%Pred-Pre 77 % [facility] ([facility]) Fyy6mzf6-Hmem 78 % [facility] ([facility]) Tyx8ysd1-KTQ 69 % [facility] ([facility]) ID Date Data Source [id number] 05/11/2021 01:52:00 PM EDT [facility] ([facility]) Name Value Range Interpretation Code Description Data Tootie rce(s) Supporting Document(s) Thyrotropin [Units/volume] in Serum or Plasma 0.628 uIU/ML 0. 358-3.740 Normal (applies to non-numeric results) [facility]) Thyroxine (T4) free [Mass/volume] in Serum or Plasma 0.79 ng/dL 0.76-1.46 Normal (applies to non-numeric results) [facility]) 05/31/21 (Thr May 31) 04:22 PM FLORES CHARLEBOIS Thyroid function normal. Cobalamin (Vitamin B12) [Mass/volume] in Serum or Plasma 1464 pg /mL 247-911 Above high normal [facility] ([facility]) VITAMIN B12 NORMAL RANGE NORMAL 247 - 911 PG/ML INDETERMINATE 211 - 246 PG/ML DEFICIENT LESS THAN 211 PG/ML Folate [Mass/volume] in Serum or Plasma 8.4 ng/mL Normal (applies to non- numeric results) [facility] ([facility]) FOLATE NORMAL RANGE NORMAL GREATER THAN 5.4 NG/ML INDETERMINATE 3.4-5.4 NG/ML DEFICIENT LESS THAN 3.4 NG/ML ID Date Data Source [id number] 05/11/2021 01:52:00 PM EDT [facility]) Name Value Range Interpretation Code Description Data Tootie rce(s) Supporting Document(s) Iron (Fe) 62 ug/dL 50-170 Normal (applies to non-numeric resul ts) [facility] ([facility]) Percent Saturation 19.7 % 13.2-45.0 Normal (applies to non-numer ic results) [facility]) 05/31/21 (Thr May 31) 04:22 PM FLORES CHARLEBOIS Normal. Total Iron Binding Capacity 315 ug/dL 250-450 Norm al (applies to non-numeric results) [facility]) ID Date Data Source [id number] 05/04/2021 01:40:00 PM EDT [facility]) Name Value Range Interpretation Code Description Data Tootie rce(s) Supporting Document(s) Amylase [Enzymatic activity/volume] in Serum or Plasma 34 U/L 25-115 Normal (applies to non-numeric results) [facility] ([facility], ) Lipoprotein lipase [Enzymatic activity/volume] in Serum or Plasm a 75 U/L 73-393 Normal (applies to non-numeric results) [facility] ([facility]) 05/08/21 (FriMay 08) 04:09 PM FLORES ROJAS Normal. ID Date Data Source [id number] 05/04/2021 01:40:00 PM EDT [facility] ([facility]) Name Value Range Interpretation Code Description Data [place] rce(s) Supporting Document(s) Glucose, Fasting 92 mg/dL 70-100 Normal (applies to non-numeric results) [facility] ([facility]) Creatinine For GFR 0.98 mg/dL 0.55-1.30 Normal (applies to non -numeric results) [facility] ([facility]) Blood Urea Nitrogen 17 mg/dL 7-18 Normal (applies to non-nume rosalva results) [facility] ([facility]) Glomerular Filtration Rate 58.7 Normal (applies to n on-numeric results) [facility] ([facility]) <content>Units are mL/min/1.73 m2</content>
<content></content>
<content>Chronic Kidney Disease Staging per NKF:</content>
<content></content>
<content>Stage I & II GFR >=60 Normal to Mildly Decreased</content>
<content>Stage III GFR 30-59 Moderately Decreased</content>
<content>Stage IV GFR 15-29 Severely Decreased</content>
<content>Stage V GFR <15 Very Little GFR Left</content>
<content>ESRD GFR <15 on SALES ACCOUNT REPRESENTATIVE</content>
<content></content> Sodium Level 142 meq/L 136-145 Normal (applies to non-numeric res ults) [facility] ([facility]) Potassium Serum 4.4 meq/L 3.5-5.1 Normal (applies to non-numeric results) [facility] ([facility]) Chloride Level 109 meq/L 98-107 Above high normal [facility] ([facility]) Anion Gap 6 meq/L 8-16 Below low normal [facility] ( [facility]) Calcium Level 8.5 mg/dL 8.8-10.2 Below low normal [facility] ([facility]) Carbon Dioxide Level 27 meq/L 21-32 Normal (applies to non-num thuy results) [facility] ([facility]) Alt/SGPT 17 U/L 12-78 Normal (applies to non-numeric resul ts) [facility] ([facility]) Alkaline Phosphatase 77 U/L 45-117 Normal (applies to non-num thuy results) [facility] ([facility]) Ast/Sgot 12 U/L 7-37 Normal (applies to non-numeric resul ts) [facility]) Bilirubin,Total 0.6 mg/dL 0.2-1.0 Normal (applies to non-numeric results) [facility] ([facility]) Albumin 3.6 GM/DL 3.2-5.2 Normal (applies to non-numeric resul ts) [facility] ([facility]) Total Protein 6.7 GM/DL 6.4-8.2 Normal (applies to non-numeric re sults) [facility] ([facility]) Albumin/Globulin Ratio 1.2 1.2-2.2 Normal (applies to non-n umeric results) [facility] ([facility]) 05/08/21 (FriMay 08) 04:13 PM FLORES ROJAS No significant abnormalties. ID Date Data Source [id number] 05/04/2021 01:40:00 PM EDT [facility] ([facility]) Name Value Range Interpretation Code Description Data Tootie rce(s) Supporting Document(s) White Blood Count 7.5 10 4.0-10.0 Normal (applies to non-numeri c results) [facility] ([facility]) Hematocrit 35.1 % 36.0-47.0 Below low normal [facility] ( [facility]) Red Blood Count 3.41 10 4.00-5.40 Below low normal [facility] ([facility]) Hemoglobin 10.4 g/dL 12.0-15.5 Below low normal [facility] ( [facility]) Mean Corpuscular Volume 102.9 fl 80.0-96.0 Above high normal [facility] ([facility]) Mean Corpuscular Hemoglobin 30.5 pg 27.0-33.0 Norm al (applies to non-numeric results) [facility] ([facility]) Mean Corpuscular HGB Conc 29.6 g/dL 32.0-36.5 Below low normal [facility] ([facility]) Red Cell Distribution Width 14.6 % 11.5-14.5 Above high normal [facility] ([facility]) Neutrophils % 57.9 % 36.0-66.0 Normal (applies to non-numeric re sults) [facility] ([facility]) Platelet Count, Automated 238 10 150-450 Normal (applies to non-numeric results) [facility] ([facility]) Lymph % 28.3 % 24.0-44.0 Normal (applies to non-numeric resul ts) [facility] ([facility]) [place] % 10.6 % 2.0-8.0 Above high normal [facility] ([facility]) Eos % 2.0 % 0.0-3.0 Normal (applies to non-numeric resul ts) [facility] ([facility]) Nucleated Red Blood Cell % 0.0 % 0-0 Normal (applies to n on-numeric results) [facility] ([facility]) Baso % 0.8 % 0.0-1.0 Normal (applies to non-numeric resul ts) [facility]) Immature Granulocyte % 0.4 % 0-3.0 Normal (applies to non-n umeric results) [facility]) Lymph # 2.1 10 1.5-5.0 Normal (applies to non-numeric resul ts) [facility]) Neutrophils # 4.3 10 1.5-8.5 Normal (applies to non-numeric re sults) [facility] ([facility], ) Eos # 0.2 10 0.0-0.5 Normal (applies to non-numeric resul ts) [facility] ([facility], ) Baso # 0.1 10 0.0-0.2 Normal (applies to non-numeric resul ts) [facility] ([facility], ) 05/08/21 (FriMay 08) 04:21 PM FLORES ROJAS Above results noted. Similar to BW completed in 09/2020. Will inform patient. See triage. Cecil # 0.8 10 0.0-0.8 Normal (applies to non-numeric resul ts) [facility] ([facility], ) ID Date Data Source [id number] 01/23/2021 02:36:00 PM EDT [facility] ([facility] Name Value Range Interpretation Code Description Data Tootie rce(s) Supporting Document(s) Urine WBC Laboratory test result 0-5 [facility] ([facility]) Urine RBC Laboratory test result 0-2 [facility] ([facility]) Bacteria Laboratory test result [facility] ([facility]) Crystals Laboratory test result [facility] ([facility]) Epithelial Cells Laboratory test result [facility] ([facility]) Sperm Laboratory test result [facility] ([facility]) Yeast Laboratory test result [facility] ([facility]) Hyaline casts [Presence] in Urine sediment by Light mi croscopy Laboratory test result [facility] ([facility]) ID Date Data Source [id number] 01/23/2021 02:25:00 PM EDT [facility] ([facility]) Name Value Range Interpretation Code Description Data Tootie rce(s) Supporting Document(s) Glucose [Presence] in Urine Laboratory test result [facility] ([facility]) Protein [Presence] in Urine by Test strip Laboratory test result [facility] ([facility]) Ua Nitrite Laboratory test result [facility] ([facility]) Ua Leuko Laboratory test result [facility] ([facility]) Blood [Presence] in Urine by Visual Laboratory test result [facility] ([facility]) Color of Urine Laboratory test result [facility] ([facility]) Ketones [Presence] in Urine by Test strip Laboratory test result [facility] ([facility]) Clarity of Urine Laboratory test result [facility] ([facility]) Ua Specific [place] 1.025 1.003-1.030 [facility] NT ([facility]) pH of Urine by Test strip 5.5 5.0-7.5 [facility] ([facility]) Bilirubin.total [Presence] in Urine by Test strip Laboratory test res ult [facility] ([facility]) Urobilinogen [Mass/volume] in Urine by Test strip 0.2 E.U./dL 0.0-1.0 [facility] ([facility]) ID Date Data Source [id number] 12/14/2020 11:27:00 AM EST [facility] ([facility]) Name Value Range Interpretation Code Description Data Tootie rce(s) Supporting Document(s) FVC-Pre 2.06 L [facility] ([facility]) FVC-Pred 3.06 L [facility] ([facility]) PDFReport Laboratory test result [facility] ([facility]) Fev1-Pred 2.30 L [facility] ([facility]) FVC-LLN 2.32 L [facility] ([facility]) FVC-%Pred-Pre 67 L [facility] ([facility]) Fev1-Pre 1.28 L [facility] ([facility]) Fev1-%Pred-Pre 55 L [facility] ([facility]) Fev1-LLN 1.68 L [facility] ([facility]) Fev6-Pre 2.03 L [facility] ([facility]) Fev6-Pred 2.92 L [facility] ([facility]) Fev6-%Pred-Pre 69 L [facility] ([facility]) Kwc6cor-Qahq 75 % [facility] ([facility]) Fev6-LLN 2.19 L [facility] ([facility]) Inl4enb-XVW 65 % [facility] ([facility]) Vyc6hpk-Cip 62 % [facility] ([facility]) Xha6meg-%Pred-Pre 82 % [facility] ([facility]) Qms8xdj-Qyao 95 % [facility] ([facility]) Txh2guh-Vvs 98 % [facility] ([facility]) FEFMax-Pred 5.56 L/E/sec [facility] ([facility]) FEFMax-Pre 3.61 L/E/sec [facility] ([facility]) Bih4jxh-%Pred-Pre 103 % [facility] ([facility]) FEFMax-%Pred-Pre 64 L/E/sec [facility] ([facility]) FEFMax-LLN 3.73 L/E/sec [facility] ([facility]) Uat0928-Muze 1.78 L/E/sec [facility] ([facility]) Gth4915-%Pred-Pre 35 L/E/sec [facility] ([facility]) Xlq9602-Tna 0.63 L/E/sec [facility] ([facility]) Dwj4843-WMQ 0.46 L/E/sec [facility] ([facility]) ExpTime-Pre 6.99 sec [facility] ([facility]) Maq6ffx5-Isoa 78 % [facility] ([facility]) Dzy8rji1-Fvv 63 % [facility] ([facility]) Pkl9qji3-%Pred-Pre 80 % [facility] ([facility]) Lvq5xuj4-YGM 70 % [facility] ([facility]) ID Date Data Source [id number] 11/03/2020 10:48:00 AM EST [facility] ([facility]) Name Value Range Interpretation Code Description Data Tootie rce(s) Supporting Document(s) Blood Urea Nitrogen 17 mg/dL 7-18 [facility] ([facility] ) Glucose, Fasting 96 mg/dL 70-100 [facility] ([facility]) Creatinine For GFR 0.89 mg/dL 0.55-1.30 [facility] ([facility]) Glomerular Filtration Rate Laboratory test result [facility] ([facility]) <content>Units are mL/min/1.73 m2</content>
<content></content>
<content>Chronic Kidney Disease Staging per NKF:</content>
<content></content>
<content>Stage I & II GFR >=60 Normal to Mildly Decreased</content>
<content>Stage III GFR 30- 59 Moderately Decreased</content>
<content>Stage IV GFR 15-29 Severely Decreased</content>
<content>Stage V GFR <15 Very Little GFR Left</content>
<content>ESRD GFR <15 on SALES ACCOUNT REPRESENTATIVE</content>
<content></content> Chloride Level 106 meq/L 98-107 [facility] ([facility]) Potassium Serum 4.2 meq/L 3.5-5.1 [facility] ([facility]) Sodium Level 141 meq/L 136-145 [facility] ([facility]) Anion Gap 2 meq/L 8-16 [facility] ([facility]) Carbon Dioxide Level 33 meq/L 21-32 [facility] ([facility]) Calcium Level 8.9 mg/dL 8.8-10.2 [facility] ([facility]) ID Date Data Source [id number] 10/17/2020 09:34:00 AM EST [facility] ([facility]) Name Value Range Interpretation Code Description Data Tootie rce(s) Supporting Document(s) Calcitriol [Mass/volume] in Serum or Plasma 45.3 pg/mL 19.9-79.3 [facility] ([facility]) Performed at: [address] [id number] Mining Teacher: Meena Barber MD, Phone: [phone] ID Date Data Source [id number] 10/17/2020 09:34:00 AM EST [facility] ([facility]) Name Value Range Interpretation Code Description Data Tootie rce(s) Supporting Document(s) Thyroid Stimulating Hormone 1.650 uIU/ML 0.358-3.740 [facility] ([facility]) Free T4 0.83 ng/dL 0.76-1.46 [facility] ([facility]) ID Date Data Source [id number] 10/17/2020 09:34:00 AM EST [facility] ([facility]) Name Value Range Interpretation Code Description Data Tootie rce(s) Supporting Document(s) Ast/Sgot 14 U/L 7-37 [facility] ([facility]) Alt/SGPT 17 U/L 12-78 [facility] ([facility]) Bilirubin,Total 0.6 mg/dL 0.2-1.0 [facility] ([facility]) Alkaline Phosphatase 123 U/L 45-117 [facility] ( [facility]) Bilirubin,Direct 0.2 mg/dL 0.0-0.2 [facility] ([facility]) Total Protein 6.6 GM/DL 6.4-8.2 [facility] ([facility]) Albumin 3.6 GM/DL 3.2-5.2 [facility] ([facility]) Albumin/Globulin Ratio 1.2 1.2-2.2 [facility] ([facility]) ID Date Data Source [id number] 10/17/2020 09:34:00 AM EST [facility] ([facility]) Name Value Range Interpretation Code Description Data Tootie rce(s) Supporting Document(s) Albumin % 60.0 % 55.8-66.1 [facility] ([facility]) Wqfwv-2-Zoxhlavz % 3.8 % 2.9-4.9 [facility] ([facility]) Uhpye-9-Bmrxevrlh % 14.0 % 7.1-11.8 [facility] ([facility]) Wood-6-Omklrnpiv % 6.0 % 4.7-7.2 [facility] ([facility]) Czkw-5-Criikbezi % 5.7 % 3.2-6.5 [facility] ([facility]) Albumin 3.96 GM/DL 3.29-5.55 [facility] ([facility]) Gamma Globulin % 10.5 % 11.1-18.8 [facility] ([facility]) Ipbjo-9-Npntbteey 0.25 GM/DL 0.17-0.41 [facility] ([facility]) Fokyw-8-Sfdnrfqga 0.92 GM/DL 0.42-0.99 [facility] ([facility]) Rmny-8-Msfzlqnhf 0.38 GM/DL 0.19-0.55 [facility] ([facility]) Zaok-3-Walokkaxf 0.40 GM/DL 0.28-0.60 [facility] ([facility]) Gamma Globulins 0.69 GM/DL 0.65-1.58 [facility] ([facility] ) Total Protein 6.6 GM/DL 6.4-8.2 [facility] Spep Interpretation Laboratory test result [facility] ([facility]) NO M-SPIKE(S)NOTED. Laboratory test finding (navigational concept) Laboratory test result [facility] ([facility] ) REV'D BY Jovan FOSTER ID Date Data Source [id number] 10/17/2020 09:34:00 AM EST [facility] ([facility] ) Name Value Range Interpretation Code Description Data Tootie rce(s) Supporting Document(s) White Blood Count 7.7 10 4.0-10.0 [facility] ([facility]) Red Blood Count 3.58 10 4.00-5.40 [facility] ([facility] ) Hemoglobin 10.7 g/dL 12.0-15.5 [facility] ([facility]) Hematocrit 35.5 % 36.0-47.0 [facility] ([facility]) Mean Corpuscular Volume 99.2 fl 80.0-96.0 M [facility] ([facility] ) Mean Corpuscular Hemoglobin 29.9 pg 27.0-33.0 [facility] ([facility] ) Red Cell Distribution Width 14.6 % 11.5-14.5 [facility] ([facility] ) Mean Corpuscular HGB Conc 30.1 g/dL 32.0-36.5 [facility] ([facility] ) Platelet Count, Automated 271 10 150-450 [facility] ([facility]) Neutrophils % 57.9 % 36.0-66.0 [facility] ([facility]) Cecil % 9.8 % 0.0-5.0 [facility] ([facility]) Lymph % 28.9 % 24.0-44.0 [facility] Eos % 2.6 % 0.0-3.0 [facility]) Baso % 0.4 % 0.0-1.0 [facility]) Nucleated Red Blood Cell % 0.0 % 0-0 [facility] ([facility]) Immature Granulocyte % 0.4 % 0-3.0 [facility] ([facility]) Neutrophils # 4.5 10 1.5-8.5 [facility] ([facility]) Lymph # 2.2 10 1.5-5.0 [facility] ([facility]) Cecil # 0.8 10 0.0-0.8 [facility] ([facility]) Eos # 0.2 10 0.0-0.5 [facility] ([facility]) Baso # 0.0 10 0.0-0.2 [facility] ([facility]) ID Date Data Source [id number] 07/25/2020 12:00:00 AM EDT [facility] Maximus BARBER Patient Name: DUKE [id number] [facility] Date of : 1945[address] Date of Exam: 07/25/2020KG Rivera [id number]#: Fax: [phone] EXAM: MRI LUMBAR SPINE WITHOUT&WITH CONTRASTPROCEDURE INFORMATION:Exam: MR Lumbar Spine Without and With Contrast.Exam date and time: 07/25/2020 12:45 PM Age: 75 years oldClinical indication: Low back pain; Prior surgery; Surgery date: 6+ monthsTECHNIQUE: Imaging protocol: Multiplanar magnetic resonance images of thelumbar spine without and with intravenous contrast. Contrast material:PROHANCE; Contrast volume: 15 ml; Contrast route: INTRAVENOUS (IV);COMPARISON: CT LUMBAR SPINE WITHOUT CONTRAST 11/18/2016 10:27 AMFINDINGS:Vertebrae: Mild dextroscoliosis in the lumbar spine apex at the L3 level.Posterior hardware fusion is again seen at the L4-L5 level. There isminimal anterior spondylolisthesis of L4 on L5 and L5 on S1 as well asretrolisthesis of L3 on L4. Edema and mild enhancement seen within theinferior endplate of L3 to the right of midline and superior endplate tothe left of midline possibly due to active degeneration associated with thescoliosis. Diffuse degenerative facet arthropathy particularly in the midto lower lumbar spine.Spinal cord: The conus medullaris is normal appearance at the L1-L2 level.L1-L2: No significant spinal canal stenosis or neural foraminal narrowing.L2-L3: Asymmetrically bulging annulus narrows the left lateral recess whereit may affect the exiting left L3 nerve root. There is odkw-rr-iuuqlpylwrcoomkfe of the left neural foramen.L3-L4: Mildly bulging annulus in combination with ligamentum flavumhypertrophy and degenerative facet arthropathy results in mild spinal canalstenosis and narrowing of both lateral recesses which could affect theexiting L4 nerve roots. There appears to be moderate narrowing of the rightneural foramen and moderate to severe narrowing of the left neural foramenwhich may affect the left L3 nerve root. Hardware artifact somewhatdiminishes visualization. Pedicle screws appear to be in good position.L4-L5: Left hemilaminectomy and partial facetectomy. No significant spinalcanal stenosis or neural foraminal narrowing. Pedicle screws appear to bein good position.L5-S1: No significant spinal canal stenosis or neural foraminal narrowing.Left hemilaminectomy and partial facetectomy.Soft tissues: No significant enhancement on the post gadolinium sequences.IMPRESSION:1. There is bilateral narrowing of the lateral recesses at the L3-L4 levelwhich may affect both exiting L4 nerve roots and narrowing of the leftneural foramen may affect the left L3 nerve root.2. No significant abnormal enhancement in the lumbar spine.Thank you for allowing us to participate in the care of your patient.Dictated and Authenticated by: Lidya Negron MD 07/25/2020 2:33 PMEyasir Crespo ([place] & [place])Jose EduardoV/jmcTcathryn you for referring ENE JUDGE to our office. Electronically Signed - [facility] 07/25/20 16:34 Name Value Range Interpretation Code Description Data Tootie rce(s) Supporting Document(s) ID Date Data Source [id number] 07/19/2020 10:09:00 AM EDT [facility] ([facility]) Name Value Range Interpretation Code Description Data Tootie rce(s) Supporting Document(s) Creatinine For GFR 0.83 mg/dL 0.55-1.30 [facility] ([facility]) Glomerular Filtration Rate Laboratory test result [facility] ([facility]) <content>Units are mL/min/1.73 m2</content>
<content></content>
<content>Chronic Kidney Disease Staging per NKF:</content>
<content></content>
<content>Stage I & II GFR >=60 Normal to Mildly Decreased</content>
<content>Stage III GFR 30- 59 Moderately Decreased</content>
<content>Stage IV GFR 15-29 Severely Decreased</content>
<content>Stage V GFR <15 Very Little GFR Left</content>
<content>ESRD GFR <15 on SALES ACCOUNT REPRESENTATIVE</content>
<content></content> ID Date Data Source [id number] 07/19/2020 10:09:00 AM EDT [facility] ([facility]) Name Value Range Interpretation Code Description Data Tootie rce(s) Supporting Document(s) Urea nitrogen [Mass/volume] in Serum or Plasma 19 mg/dL 7-18 [facility] ([facility]) Procedure Social History Code Duration Value Status Description Data Source(s ) Smoking 06/18/2021 12:00:00 AM EDT - 10/20/1999 12:00:00 AM EST Patient is a former smoker completed Patient is a former smoker [facility] ([facility], ) Cigarette Use 01/23/2021 12:00:00 AM EDT Pack Years - 30 completed Pack Years - 30 [facility] ([facility]) Smoking 01/23/2021 12:00:00 AM EDT Former Cigarette Smok er 1 Pack Daily completed Former Cigarette Smoker 1 Pack Daily [facility] ([facility]) Vital Signs ID Date Data Source [id number] Name Value Range Interpretation Code Description Data Source(s) Systolic blood pressure 120 mm[Hg] 120 mm[Hg] [facility] ([facility]) Diastolic blood pressure 60 mm[Hg] 60 mm[Hg] [facility] ([facility]) Heart rate 72 /min 72 /min [facility] ([facility]) Oxygen saturation in Arterial blood by Pulse oximetry 93 % 93 % [facility] ([facility]) Body height 66 [in_i] 66 [in_i] [facility] ([facility]) 5'6" Body weight 148.00 [lb_av] 148.00 [facility]av[facility] Body mass index (BMI) [Ratio] 23.9 kg/m2 23.9 k g/m2 [facility] ([facility]) [place] body weight 130 [lb_av] 130 [lb_av] [facility] Body weight 67.133 kg 67.133 kg [facility] ([facility]) Body surface area Derived from formula 1.76 m2 1.76 m2 [facility] ([facility]) Body height 63 [in_i] 63 [in_i] [facility] ([facility]) 5'3" Body weight 152.12 [lb_av] 152.12 [lb_av] [facility] T ([facility]) Body mass index (BMI) [Ratio] 26.9 kg/m2 26.9 k g/m2 [facility] ([facility]) Body height 66 [in_i] 66 [in_i] [facility] ([facility]) 5'6" Body weight 153.00 [lb_av] 153.00 [lb_av] [facility] ([facility]) Body mass index (BMI) [Ratio] 24.7 kg/m2 24.7 k g/m2 [facility] [place] body weight 130 [lb_av] 130 [lb_av] [facility] ([facility]) Body weight 69.401 kg 69.401 kg [facility] ([facility]) Body surface area Derived from formula 1.78 m2 1.78 m2 [facility] ([facility]) Diastolic blood pressure 62 mm[Hg] 62 mm[Hg] [facility] Systolic blood pressure 112 mm[Hg] 112 mm[Hg] [facility] ([facility]) Body weight 153.00 [lb_av] 153.00 [lb_av] [facility] T ([facility]) Body mass index (BMI) [Ratio] 24.7 kg/m2 24.7 k g/m2 [facility] ([facility]) [place] body weight 130 [lb_av] 130 [lb_av] [facility] T ([facility]) Body weight 69.401 kg 69.401 kg [facility] ([facility]) Body surface area Derived from formula 1.78 m2 1.78 m2 [facility] ([facility]) Body height 66 [in_i] 66 [in_i] [facility] ([facility]) 5'6" Body height 66 [in_i] 66 [in_i] [facility] ([facility]) 5'6" Body weight 153.00 [lb_av] 153.00 [lb_av] [facility] T ([facility]) Body mass index (BMI) [Ratio] 24.7 kg/m2 24.7 k g/m2 [facility] ([facility]) [place] body weight 130 [lb_av] 130 [lb_av] [facility] T ([facility]) Body weight 69.401 kg 69.401 kg [facility] ([facility]) Body surface area Derived from formula 1.78 m2 1.78 m2 [facility] ([facility]) Body height 66 [in_i] 66 [in_i] [facility] ([facility]) 5'6" Body weight 153.00 [lb_av] 153.00 [lb_av] [facility] T ([facility]) Body mass index (BMI) [Ratio] 24.7 kg/m2 24.7 k g/m2 [facility] ([facility]) [place] body weight 130 [lb_av] 130 [lb_av] [facility] T ([facility]) Body weight 69.401 kg 69.401 kg [facility] ([facility]) Systolic blood pressure 122 mm[Hg] 122 mm[Hg] M [facility] ([facility]) Diastolic blood pressure 68 mm[Hg] 68 mm[Hg] [facility] ([facility]) Body surface area Derived from formula 1.78 m2 1.78 m2 [facility] ([facility]) Body weight 160 [lb_av] 160 [lb_av] eCW1 ([facility]) Body weight kg eCW1 ([facility]) Body height 65 [in_i] 65 [in_i] eCW1 ([facility]) Body mass index (BMI) [Ratio] 26.62 kg/m2 26.62 kg/m2 W1 ([facility]) Heart rate 83 /min 83 /min W1 ([facility]) Respiratory rate 18 /min 18 /min W1 ([facility]) Body temperature 97.3 [degF] 97.3 [degF] eCW1 ( [facility]) Systolic blood pressure 157 mm[Hg] 157 mm[Hg] e CW1 ([facility]) Diastolic blood pressure 71 mm[Hg] 71 mm[Hg] eCW1 ([facility]) Body weight 160 [lb_av] 160 [lb_av] eCW1 ([facility]) Body weight kg eCW1 ([facility]) Body height 65 [in_i] 65 [in_i] eCW1 ([facility]) Body mass index (BMI) [Ratio] 26.62 kg/m2 26.62 kg/m2 W1 ([facility]) Heart rate 73 /min 73 /min eCW1 ([facility]) Respiratory rate 17 /min 17 /min eCW1 ([facility]) Body temperature 97.8 [degF] 97.8 [degF] eCW1 ( [facility]) Systolic blood pressure 178 mm[Hg] 178 mm[Hg] e CW1 ([facility]) Diastolic blood pressure 71 mm[Hg] 71 mm[Hg] eCW1 ([facility]) Body weight 160 [lb_av] 160 [lb_av] eCW1 ([facility]) Body weight kg eCW1 ([facility]) Body height 65 [in_i] 65 [in_i] eCW1 ([facility]) Body mass index (BMI) [Ratio] 26.62 kg/m2 26.62 kg/m2 eCW1 ([facility]) Heart rate 95 /min 95 /min eCW1 ([facility]) Respiratory rate 19 /min 19 /min eCW1 ([facility]) Body temperature 97.2 [degF] 97.2 [degF] eCW1 ( [facility]) Systolic blood pressure 156 mm[Hg] 156 mm[Hg] e CW1 ([facility]) Diastolic blood pressure 64 mm[Hg] 64 mm[Hg] eCW1 ([facility]) Body weight 160 [lb_av] 160 [lb_av] eCW1 ([facility]) Body height 65 [in_i] 65 [in_i] eCW1 ([facility]) Body mass index (BMI) [Ratio] 26.62 kg/m2 26.62 kg/m2 eCW1 ([facility]) Heart rate 90 /min 90 /min eCW1 ([facility]) Respiratory rate 18 /min 18 /min eCW1 ([facility]) Body temperature 96.3 [degF] 96.3 [degF] eCW1 ( [facility]) Body weight 72.576 kg 72.576 kg [facility] ([facility] Body mass index (BMI) [Ratio] 25.8 kg/m2 25.8 k g/m2 [facility] ([facility]) Systolic blood pressure 120 mm[Hg] 120 mm[Hg] M EDENT ([facility]) Diastolic blood pressure 57 mm[Hg] 57 mm[Hg] [facility] ([facility]) Body height 66 [in_i] 66 [in_i] [facility] ([facility] 5'6" Body weight 160.00 [lb_av] 160.00 [lb_av] MEDEN T ([facility]) Heart rate 82 /min 82 /min [facility] ([facility] Body weight 160 [lb_av] 160 [lb_av] eCW1 ([facility]) Body height 65 [in_i] 65 [in_i] eCW1 ([facility]) Body mass index (BMI) [Ratio] 26.62 kg/m2 26.62 kg/m2 eCW1 ([facility]) Heart rate 78 /min 78 /min eCW1 ([facility]) Respiratory rate 16 /min 16 /min eCW1 ([facility]) Body temperature 98.1 [degF] 98.1 [degF] eCW1 ( [facility]) Systolic blood pressure 129 mm[Hg] 129 mm[Hg] e CW1 ([facility]) Diastolic blood pressure 58 mm[Hg] 58 mm[Hg] eCW1 ([facility]) Body surface area Derived from formula 1.81 m2 1.81 m2 [facility] ([facility], ) Systolic blood pressure 124 mm[Hg] 124 mm[Hg] M EDENT ([facility], ) Diastolic blood pressure 60 mm[Hg] 60 mm[Hg] [facility] ([facility], ) Body height 66 [in_i] 66 [in_i] [facility] ([facility], ) 5'6" Body weight 158.00 [lb_av] 158.00 [lb_av] MEDEN T ([facility], ) Body mass index (BMI) [Ratio] 25.5 kg/m2 25.5 k g/m2 [facility] ([facility]) [place] body weight 130 [lb_av] 130 [lb_av] MEDEN T ([facility]) Body weight 71.669 kg 71.669 kg [facility] ([facility]) Systolic blood pressure 120 mm[Hg] 120 mm[Hg] M EDENT ([facility]) Diastolic blood pressure 62 mm[Hg] 62 mm[Hg] [facility] ([facility]) Heart rate 83 /min 83 /min [facility] ([facility]) Oxygen saturation in Arterial blood by Pulse oximetry 95 % 95 % [facility] ([facility]) Body temperature 97.0 [degF] 97.0 [degF] [facility] ([facility]) Body height 66 [in_i] 66 [in_i] [facility] ([facility]) 5'6" Body weight 150.00 [lb_av] 150.00 [lb_av] MEDEN T ([facility]) Body mass index (BMI) [Ratio] 24.2 kg/m2 24.2 k g/m2 [facility] ([facility]) [place] body weight 130 [lb_av] 130 [facility]_av] [facility] Body weight 68.040 kg 68.040 kg [facility] ([facility]) Body surface area Derived from formula 1.77 m2 1.77 m2 [facility] ([facility]) Systolic blood pressure 126 mm[Hg] 126 mm[Hg] M EDENT ([facility]) Diastolic blood pressure 64 mm[Hg] 64 mm[Hg] [facility] ([facility]) Heart rate 73 /min 73 /min [facility] ([facility]) Body temperature 97.1 [degF] 97.1 [degF] [facility] ([facility]) Body height 62.2 [in_i] 62.2 [in_i] [facility] ([facility]) 5'2.20" Body weight 155.38 [lb_av] 155.38 [lb_av] MEDEN T ([facility]) Body mass index (BMI) [Ratio] 28.2 kg/m2 28.2 k g/m2 [facility] ([facility]) Oxygen saturation in Arterial blood by Pulse oximetry 93 % 93 % [facility] ([facility]) Body temperature 97.5 [degF] 97.5 [degF] [facility] ([facility]) Systolic blood pressure 140 mm[Hg] 140 mm[Hg] [facility] ([facility]) Diastolic blood pressure 70 mm[Hg] 70 mm[Hg] [facility] ([facility]) Heart rate 74 /min 74 /min [facility] ([facility]) Oxygen saturation in Arterial blood by Pulse oximetry 93 % 93 % [facility] ([facility]) Body temperature 96.8 [degF] 96.8 [degF] [facility] ([facility]) Body height 66 [in_i] 66 [in_i] [facility] ([facility]) 5'6" Body weight 155.00 [lb_av] 155.00 [lb_av] MED[facility] T ([facility]) Body mass index (BMI) [Ratio] 25.0 kg/m2 25.0 k g/m2 [facility] ([facility]) [place] body weight 130 [lb_av] 130 [lb_av] [facility] T ([facility]) Body weight 70.308 kg 70.308 kg [facility] ([facility]) Body surface area Derived from formula 1.79 m2 1.79 m2 [facility] ([facility]) Oxygen saturation in Arterial blood by Pulse oximetry 93 % 93 % [facility] ([facility]) Body temperature 96.5 [degF] 96.5 [degF] [facility] ([facility]) Body height 66 [in_i] 66 [in_i] [facility] ([facility]) 5'6" Systolic blood pressure 130 mm[Hg] 130 mm[Hg] [facility] ([facility]) Diastolic blood pressure 80 mm[Hg] 80 mm[Hg] [facility] ([facility]) Heart rate 72 /min 72 /min [facility] ([facility]) Body weight 160.00 [lb_av] 160.00 [lb_av] MED[facility] T ([facility]) Body mass index (BMI) [Ratio] 25.8 kg/m2 25.8 k g/m2 [facility] ([facility]) [place] body weight 130 [lb_av] 130 [lb_av] MED[facility] T ([facility]) Body weight 72.576 kg 72.576 kg [facility] ([facility]) Body surface area Derived from formula 1.82 m2 1.82 m2 [facility] ([facility]) Body temperature 96.9 [degF] 96.9 [degF] [facility] ([facility]) Body height 63.25 [in_i] 63.25 [in_i] [facility] ([facility]) 5'3.25" Body weight 159.12 [lb_av] 159.12 [lb_av] MEDEN T ([facility]) Body mass index (BMI) [Ratio] 28.0 kg/m2 28.0 k g/m2 [facility] ([facility]) Body temperature 98.2 [degF] 98.2 [degF] [facility] ([facility]) Systolic blood pressure 126 mm[Hg] 126 mm[Hg] [facility] ([facility]) Diastolic blood pressure 62 mm[Hg] 62 mm[Hg] [facility] ([facility]) Body height 66 [in_i] 66 [in_i] [facility] ([facility]) 5'6" Body weight 164.00 [lb_av] 164.00 [lb_av] MED[facility] T ([facility]) Body mass index (BMI) [Ratio] 26.5 kg/m2 26.5 k g/m2 [facility] ([facility]) [place] body weight 130 [lb_av] 130 [lb_av] MED[facility] T ([facility]) Body weight 74.390 kg 74.390 kg [facility] ([facility])
--- NOTE | 2021-09-03 12:46 | ROOR ---
Patient Name: Madonna Cerda Procedure Date: 09/03/2021 12:33 PM Date of : 1945 Age: 76 Room: [facility] Gender: Female Note Status: Finalized Procedure: Upper GI endoscopy Indications: Epigastric abdominal pain, Dyspepsia Providers: Fede Lindsey MD Referring MD: WANDA HOANG MD Requesting Provider: Medicines: Monitored Anesthesia Care Complications: No immediate complications. Procedure: Pre-Anesthesia Assessment: - The heart rate, respiratory rate, oxygen saturations, blood pressure, adequacy of pulmonary ventilation, and response to care were monitored throughout the procedure. The Endoscope was introduced through the mouth, and advanced to the second part of duodenum. The upper GI endoscopy was accomplished without difficulty. The patient tolerated the procedure well. Findings: Evidence of a fundoplication was found in the cardia. The esophagus was normal. The stomach was normal. The examined duodenum was normal. Impression: - Normal esophagus. - Normal stomach. A fundoplication was found. - Normal examined duodenum. - No specimens collected. Recommendation: - Gastroparesis diet: - Eat smaller, more frequent meals throughout the day. - Low fat diet. - Liquid/soft foods are tolerated better than solid foods. - Low fiber/well cooked vegetables are tolerated better than high fiber/fibrous foods/raw vegetables. - Avoid medications that inhibit gastric/intestinal motility such as narcotic medications. Procedure Code(s): --- Professional --- 89008, Esophagogastroduodenoscopy, flexible, transoral; diagnostic, including collection of specimen(s) by brushing or washing, when performed (separate procedure) Diagnosis Code(s): --- Professional --- R10.13, Epigastric pain Z98.890, Other specified postprocedural states CPT copyright 2019 [employer]. All rights reserved. The codes documented in this report are preliminary and upon icd 9 coder review may be revised to meet current compliance requirements. Fede Lindsey MD Fede Lindsey MD 09/03/2021 12:45:29 PM Electronically signed by Fede Lindsey MD Number of Addenda: 0 Note Initiated On: 09/03/2021 12:33 PM Estimated Blood Loss: Estimated blood loss: none.
[2021-09-03] MEDS ORDERED: LIDOCAINE 2% 100MG/5ML SDV (FOR ANES.) As Ordered ONE (13:00)
[2021-09-03] MEDS ORDERED: fentaNYL 100 MCG/2 ML INJECTION (J3010) As Ordered ONE (13:00)
[2021-09-03] MEDS ORDERED: propofoL 500 MG/50 ML VIAL As Ordered ONE (13:00)
[2021-09-03 13:26] VITALS: BP 164/73
== END 2021-09-03 13:25 | disposition home or self-care (01) ==
LOC: M OPP 11:18
PROVIDERS: ATTEND Internal Medicine Gastroenterology
DX: R10.13 Epigastric pain (principal); Z98.890 Other specified postprocedural states; Z79.891 Long term (current) use of opiate analgesic; Z79.899 Other long term (current) drug therapy; Z87.891 Personal history of nicotine dependence
CPT/HCPCS: 43235; J3010

== ENCOUNTER → 2021-10-17 | Outpatient (CLI) | payer MEDICARE, OTHER ==
[~2021-10-17] MED LIST changes: -NS 1,000 ML IV ONE
--- NOTE | 2021-10-17 16:00 | REP ---
INDICATION: COPD, COUGH COMPARISON: 03/23/2015 TECHNIQUE: PA and lateral. FINDINGS: The mediastinum and cardiac silhouette are normal. The lung mendoza demonstrate chronic appearing changes without acute consolidation, effusion, or pneumothorax. The skeletal structures demonstrate osteopenia and age-related changes. IMPRESSION: No acute cardiopulmonary process. <Electronically signed by Bj Kathleen > 10/17/21 [id number]
== END ==
LOC: M WUC 15:34
PROVIDERS: ATTEND Family Medicine
DX: J44.9 Chronic obstructive pulmonary disease, unspecified (principal); R05.9 Cough, unspecified

== ENCOUNTER → 2021-12-18 | Outpatient (CLI) | payer MEDICARE, OTHER | LOC: M PLAIMG 13:25 | PROVIDERS: ATTEND Physical Medicine & Rehabilitation Pain Medicine | DX: Z98.1 Arthrodesis status (principal) ==

== ENCOUNTER → 2022-06-06 | Outpatient (CLI) | payer MEDICARE, OTHER ==
[2022-06-06 09:33] LABS: APPEARANCE, URINE MANUAL CLEAR (CLEAR); BILIRUBIN, URINE MANUAL NEGATIVE (NEGATIVE); BLOOD URINE MANUAL TRACE (NEGATIVE); COLOR, URINE MANUAL YELLOW (YELLOW); GLUCOSE, URINE (UA) MANUAL NEGATIVE (NEGATIVE); KETONE, URINE MANUAL NEGATIVE (NEGATIVE); LEUKOCYTE ESTERASE, URINE MAN NEGATIVE (NEGATIVE); NITRITE, URINE MANUAL NEGATIVE (NEGATIVE); PROTEIN, URINE MANUAL NEGATIVE (NEGATIVE); SPECIFIC GRAVITY,URINE MANUAL 1.015 (1.002-1.035); UROBILINOGEN, URINE MANUAL NORMAL (NORMAL)
[2022-06-06 09:34] LABS: HEMATOCRIT 33.5 % (36.0-47.0); HEMOGLOBIN 10.5 g/dl (12.0-15.5); MEAN CORPUSCULAR HEMOGLOBIN 31.2 pg (27.0-33.0); MEAN CORPUSCULAR HGB CONC 31.3 g/dl (32.0-36.5); MEAN CORPUSCULAR VOLUME 99.4 fl (80.0-96.0); PLATELET COUNT, AUTOMATED 281 10^3/uL (150-450); RED BLOOD COUNT 3.37 10^6/uL (4.00-5.40); WHITE BLOOD COUNT 4.5 10^3/uL (4.0-10.0)
[2022-06-06 09:47] LABS: INR 0.94
[2022-06-06 09:50] LABS: BACTERIA, URINE NONE SEEN; HYALINE CAST, URINE NONE SEEN /lpf (0-1); RBC, URINE 0-1 /hpf (0-3); SQUAMOUS EPITHELIAL CELL URINE NONE SEEN /hpf (SMALL AMT); WBC, URINE 0-1 /hpf (0-3)
[2022-06-06 10:18] LABS: ALBUMIN 3.4 GM/DL (3.2-5.2); ALT/SGPT 19 U/L (12-78); BILIRUBIN,TOTAL 0.5 MG/DL (0.2-1.0); BLOOD UREA NITROGEN 21 MG/DL (7-18); CALCIUM LEVEL 8.9 MG/DL (8.8-10.2); CARBON DIOXIDE LEVEL 28 MEQ/L (21-32); CHLORIDE LEVEL 111 MEQ/L (98-107); CHOLESTEROL LEVEL 182 MG/DL (<200); CHOLESTEROL RISK RATIO 2.716 (<5); CREATININE FOR GFR 0.85 MG/DL (0.55-1.30); GLOMERULAR FILTRATION RATE > 60.0 (>39); GLUCOSE, FASTING 89 MG/DL (70-100); HDL CHOLESTEROL 67 MG/DL (>40); LDL CHOLESTEROL 100 MG/DL (<100); NON-HDL-C 115 MG/DL; POTASSIUM SERUM 4.2 MEQ/L (3.5-5.1); SODIUM LEVEL 143 MEQ/L (136-145); THYROID STIMULATING HORMONE 0.773 uIU/ML (0.358-3.740); TOTAL PROTEIN 6.4 GM/DL (6.4-8.2); TRIGLYCERIDES LEVEL 74 MG/DL (<150)
[2022-06-06 10:22] LABS: HEMOGLOBIN A1c 5.6 %
== END ==
LOC: M RAD 07:32
PROVIDERS: ATTEND Family Medicine
DX: Z01.818 Encounter for other preprocedural examination (principal); J44.9 Chronic obstructive pulmonary disease, unspecified; Z79.899 Other long term (current) drug therapy

== ENCOUNTER → 2022-10-09 | Outpatient (CLI) | payer MEDICARE, OTHER ==
[2022-10-09 10:17] LABS: BASO # 0.1 10^3/uL (0.0-0.2); BASO % 1.1 % (0.0-1.0); EOS # 0.2 10^3/uL (0.0-0.5); HEMOGLOBIN 10.5 g/dl (12.0-15.5); LYMPH # 2.2 10^3/uL (1.5-5.0); LYMPH % 47.5 % (24.0-44.0); MEAN CORPUSCULAR HEMOGLOBIN 30.4 pg (27.0-33.0); MEAN CORPUSCULAR VOLUME 101.4 fl (80.0-96.0); MONO # 0.5 10^3/uL (0.0-0.8); MONO % 11.2 % (2.0-8.0); NEUTROPHILS # 1.6 10^3/uL (1.5-8.5); PLATELET COUNT, AUTOMATED 237 10^3/uL (150-450); RED BLOOD COUNT 3.45 10^6/uL (4.00-5.40); WHITE BLOOD COUNT 4.6 10^3/uL (4.0-10.0)
[2022-10-09 10:48] LABS: ALBUMIN 3.6 G/DL (3.2-5.2)
[2022-10-09 10:56] LABS: PERCENT SATURATION 31.2 % (13.2-45.0)
[2022-10-09 10:58] LABS: FERRITIN 28.4 NG/ML (7.3-270.7); THYROID STIMULATING HORMONE 2.288 uIU/ML (0.55-4.78)
== END ==
LOC: M WUC 08:15
PROVIDERS: ATTEND Orthopaedic Surgery
DX: M16.11 Unilateral primary osteoarthritis, right hip (principal); M25.551 Pain in right hip; R53.1 Weakness

== ENCOUNTER → 2022-10-24 | Outpatient (CLI) | payer MEDICARE, OTHER ==
[2022-10-24 09:04] LABS: APPEARANCE, URINE MANUAL CLEAR (CLEAR); COLOR, URINE MANUAL LT YELLOW (YELLOW)
[2022-10-24 09:05] LABS: BILIRUBIN, URINE MANUAL NEGATIVE (NEGATIVE); BLOOD URINE MANUAL NEGATIVE (NEGATIVE); GLUCOSE, URINE (UA) MANUAL NEGATIVE (NEGATIVE); KETONE, URINE MANUAL NEGATIVE (NEGATIVE); NITRITE, URINE MANUAL NEGATIVE (NEGATIVE); PROTEIN, URINE MANUAL NEGATIVE (NEGATIVE); SPECIFIC GRAVITY,URINE MANUAL 1.015 (1.002-1.035); UROBILINOGEN, URINE MANUAL NORMAL (NORMAL)
[2022-10-24 09:06] LABS: LEUKOCYTE ESTERASE, URINE MAN NEGATIVE (NEGATIVE)
[2022-10-24 09:10] LABS: HEMATOCRIT 33.4 % (36.0-47.0); HEMOGLOBIN 10.4 g/dl (12.0-15.5); MEAN CORPUSCULAR HGB CONC 31.1 g/dl (32.0-36.5); MEAN CORPUSCULAR VOLUME 99.4 fl (80.0-96.0); PLATELET COUNT, AUTOMATED 218 10^3/uL (150-450); RED BLOOD COUNT 3.36 10^6/uL (4.00-5.40); WHITE BLOOD COUNT 5.1 10^3/uL (4.0-10.0)
[2022-10-24 09:22] LABS: INR 0.93; PROTHROMBIN TIME 12.7 SECONDS (12.5-14.5)
[2022-10-24 09:47] LABS: ALBUMIN 3.6 G/DL (3.2-5.2); ALKALINE PHOSPHATASE 83 U/L (46-116); ALT/SGPT < 9 U/L (7.0-40); AST/SGOT 18 U/L (<34); BILIRUBIN,TOTAL 0.5 MG/DL (0.3-1.2); BLOOD UREA NITROGEN 20 MG/DL (9-23); CARBON DIOXIDE LEVEL 27 MMOL/L (20-31); CHLORIDE LEVEL 108 MMOL/L (98-107); CHOLESTEROL LEVEL 168 MG/DL (<200); CHOLESTEROL RISK RATIO 2.43 (<5); CREATININE FOR GFR 0.79 MG/DL (0.55-1.30); GLOMERULAR FILTRATION RATE > 60.0 (>39); GLUCOSE, FASTING 89 MG/DL (74-106); NON-HDL-C 99 MG/DL; POTASSIUM SERUM 4.3 MMOL/L (3.5-5.1); SODIUM LEVEL 142 MMOL/L (136-145); THYROID STIMULATING HORMONE 1.273 uIU/ML (0.55-4.78); TOTAL PROTEIN 6.1 G/DL (5.7-8.2); TRIGLYCERIDES LEVEL 70 MG/DL (<150)
== END ==
LOC: M RAD 07:43
PROVIDERS: ATTEND Family Medicine
DX: Z01.818 Encounter for other preprocedural examination (principal); I10 Essential (primary) hypertension; J44.9 Chronic obstructive pulmonary disease, unspecified; Z79.899 Other long term (current) drug therapy

== ENCOUNTER → 2023-11-07 | Outpatient (REF) | payer MEDICARE, OTHER ==
[~2023-11-07] MED LIST changes: +DICL100G10 TOP; -DICL1GEL3 TOP; -GABA-283 PO; +GABA-284 PO; -ROPI0.253 PO; +ROPI5TAB19 PO
[2023-11-07 18:13] LABS: CREATININE FOR GFR 0.88 MG/DL (0.55-1.30); GLOMERULAR FILTRATION RATE > 60.0 (>39)
== END ==
LOC: M LABWUC 17:26
PROVIDERS: ATTEND Nurse Practitioner Adult Health
DX: Z00.00 Encounter for general adult medical examination without abnormal findings (principal); M54.50 Low back pain, unspecified

== ENCOUNTER → 2024-01-12 | Outpatient (CLI) | payer MEDICARE, OTHER | LOC: M RAD 11:26 | PROVIDERS: ATTEND Family Medicine | DX: R06.02 Shortness of breath (principal) ==

== ENCOUNTER → 2024-01-23 | Outpatient (CLI) | payer MEDICARE, OTHER ==
[2024-01-23 17:47] LABS: BASO # 0.1 10^3/uL (0.0-0.2); BASO % 0.3 % (0.0-1.0); EOS # 0.1 10^3/uL (0.0-0.5); EOS % 0.3 % (0.0-3.0); HEMATOCRIT 39.1 % (36.0-47.0); LYMPH # 1.3 10^3/uL (1.5-5.0); LYMPH % 8.3 % (24.0-44.0); MEAN CORPUSCULAR HEMOGLOBIN 31.3 pg (27.0-33.0); MEAN CORPUSCULAR HGB CONC 30.7 g/dl (32.0-36.5); MEAN CORPUSCULAR VOLUME 102.1 fl (80.0-96.0); MONO # 0.9 10^3/uL (0.0-0.8); MONO % 5.4 % (2.0-8.0); NEUTROPHILS # 13.5 10^3/uL (1.5-8.5); NEUTROPHILS % 85.3 % (36.0-66.0); PLATELET COUNT, AUTOMATED 355 10^3/uL (150-450); RED BLOOD COUNT 3.83 10^6/uL (4.00-5.40); WHITE BLOOD COUNT 15.8 10^3/uL (4.0-10.0)
[2024-01-23 18:19] LABS: ALBUMIN 3.7 G/DL (3.2-5.2); ALKALINE PHOSPHATASE 102 U/L (46-116); ALT/SGPT < 9 U/L (7.0-40); AST/SGOT 15 U/L (<34); BILIRUBIN,TOTAL 0.4 MG/DL (0.3-1.2); BLOOD UREA NITROGEN 22 MG/DL (9-23); CALCIUM LEVEL 9.4 MG/DL (8.3-10.6); CARBON DIOXIDE LEVEL 29 MMOL/L (20-31); CHLORIDE LEVEL 107 MMOL/L (98-107); CREATININE FOR GFR 0.98 MG/DL (0.55-1.30); GLOMERULAR FILTRATION RATE 58.3 (>39); GLUCOSE, FASTING 99 MG/DL (74-106); POTASSIUM SERUM 4.5 MMOL/L (3.5-5.1); SODIUM LEVEL 137 MMOL/L (136-145); TOTAL PROTEIN 6.7 G/DL (5.7-8.2)
== END ==
LOC: M WUC 13:50
PROVIDERS: ATTEND Nurse Practitioner Family
DX: R05.9 Cough, unspecified (principal); Z79.899 Other long term (current) drug therapy

== ENCOUNTER → 2024-02-05 | Outpatient (CLI) | payer MEDICARE, OTHER ==
[2024-02-05 12:18] LABS: HEMATOCRIT 38.2 % (36.0-47.0); HEMOGLOBIN 12.2 g/dl (12.0-15.5); MEAN CORPUSCULAR HEMOGLOBIN 31.5 pg (27.0-33.0); MEAN CORPUSCULAR HGB CONC 31.9 g/dl (32.0-36.5); MEAN CORPUSCULAR VOLUME 98.7 fl (80.0-96.0); PLATELET COUNT, AUTOMATED 265 10^3/uL (150-450); RED BLOOD COUNT 3.87 10^6/uL (4.00-5.40); WHITE BLOOD COUNT 10.4 10^3/uL (4.0-10.0)
[2024-02-05 12:51] LABS: ALBUMIN 3.4 G/DL (3.2-5.2); CALCIUM LEVEL 9.3 MG/DL (8.3-10.6); CHOLESTEROL RISK RATIO 2.07 (<5); CREATININE FOR GFR 1.01 MG/DL (0.55-1.30); GLOMERULAR FILTRATION RATE 56.3 (>39); PERCENT SATURATION 29.2 % (13.2-45.0); POTASSIUM SERUM 4.6 MMOL/L (3.5-5.1); TOTAL PROTEIN 6.5 G/DL (5.7-8.2)
[2024-02-05 12:53] LABS: THYROID STIMULATING HORMONE 0.841 uIU/ML (0.55-4.78); TOTAL 25(OH) VITAMIN D 31.5 NG/ML (20.0-100.0)
== END ==
LOC: M WUC 08:56
PROVIDERS: ATTEND Family Medicine
DX: D64.9 Anemia, unspecified (principal); R53.83 Other fatigue; E03.9 Hypothyroidism, unspecified; Z79.899 Other long term (current) drug therapy

== ENCOUNTER → 2024-11-18 | Outpatient (CLI) | payer MEDICARE, OTHER ==
[~2024-11-18] MED LIST changes: +BUPR-597 PO; -BUPR300T92 PO; +ONDA-282 PO; -ONDA4TAB6 PO
[2024-11-18 11:31] LABS: CREATININE FOR GFR 0.96 MG/DL (0.55-1.30); GLOMERULAR FILTRATION RATE 59.7 (>39)
== END ==
LOC: M WUC 09:01
PROVIDERS: ATTEND Nurse Practitioner Adult Health
DX: M54.50 Low back pain, unspecified (principal)

== ENCOUNTER → 2025-01-20 | Outpatient (CLI) | payer MEDICARE, OTHER ==
[2025-01-20 08:44] LABS: HEMATOCRIT 35.4 % (36.0-47.0); HEMOGLOBIN 11.3 g/dl (12.0-15.5); MEAN CORPUSCULAR HGB CONC 31.9 g/dl (32.0-36.5); MEAN CORPUSCULAR VOLUME 97.3 fl (80.0-96.0); PLATELET COUNT, AUTOMATED 243 10^3/uL (150-450); RED BLOOD COUNT 3.64 10^6/uL (4.00-5.40); WHITE BLOOD COUNT 5.1 10^3/uL (4.0-10.0)
[2025-01-20 09:21] LABS: ALBUMIN 3.7 G/DL (3.2-5.2); ALKALINE PHOSPHATASE 68 U/L (35-104); ALT/SGPT 13 U/L (7.0-40); AST/SGOT 17 U/L (<34); BILIRUBIN,TOTAL 0.6 MG/DL (0.3-1.2); BLOOD UREA NITROGEN 15 MG/DL (9-23); CALCIUM LEVEL 9.3 MG/DL (8.3-10.6); CARBON DIOXIDE LEVEL 26 MMOL/L (20-31); CHLORIDE LEVEL 110 MMOL/L (98-107); CHOLESTEROL LEVEL 202 MG/DL (<200); CHOLESTEROL RISK RATIO 2.88 (<5); CREATININE FOR GFR 0.93 MG/DL (0.55-1.30); GLOMERULAR FILTRATION RATE > 60.0 (>32); GLUCOSE, FASTING 92 MG/DL (74-106); HDL CHOLESTEROL 69.9 MG/DL (>40); LDL CHOLESTEROL 116.5 MG/DL (<100); NON-HDL-C 132.1 MG/DL; POTASSIUM SERUM 4.1 MMOL/L (3.5-5.1); SODIUM LEVEL 144 MMOL/L (136-145); TOTAL PROTEIN 6.5 G/DL (5.7-8.2); TRIGLYCERIDES LEVEL 78 MG/DL (<150)
[2025-01-20 09:23] LABS: THYROID STIMULATING HORMONE 1.746 uIU/ML (0.55-4.78); TOTAL 25(OH) VITAMIN D 29.4 NG/ML (20.0-100.0)
[2025-01-20 09:43] LABS: HEMOGLOBIN A1c 5.5 % (4.0-6.0)
== END ==
LOC: M LAB 08:03
PROVIDERS: ATTEND Family Medicine
DX: D64.9 Anemia, unspecified (principal); E03.9 Hypothyroidism, unspecified; R53.83 Other fatigue; Z79.899 Other long term (current) drug therapy

== ENCOUNTER → 2025-01-24 | Outpatient (CLI) | payer MEDICARE, OTHER ==
[~2025-01-24] MED LIST changes: +ISOVUE-370 76% 100ML VIAL As Ordered ONE
== END ==
LOC: M RAD 09:58
PROVIDERS: ATTEND Family Medicine
DX: R51.9 Headache, unspecified (principal); H53.2 Diplopia; G93.89 Other specified disorders of brain
CPT/HCPCS: 70470; Q9967

== ENCOUNTER → 2025-02-04 | Outpatient (CLI) | payer MEDICARE, OTHER ==
[~2025-02-04] MED LIST changes: -ISOVUE-370 76% 100ML VIAL As Ordered ONE
== END ==
LOC: M PLAIMG 13:34
PROVIDERS: ATTEND Orthopaedic Surgery
DX: M54.50 Low back pain, unspecified (principal); M54.6 Pain in thoracic spine; M47.9 Spondylosis, unspecified

== ENCOUNTER → 2025-04-22 | Outpatient (CLI) | payer MEDICARE, OTHER ==
[~2025-04-22] MED LIST changes: -BUPR-597 PO; +BUPR-766 PO; +TIZA4CAP PO
[2025-04-22 09:45] LABS: BASO # 0.0 10^3/uL (0.0-0.2); BASO % 0.6 % (0.0-1.0); EOS # 0.2 10^3/uL (0.0-0.5); EOS % 4.0 % (0.0-3.0); LYMPH # 1.8 10^3/uL (1.5-5.0); LYMPH % 35.0 % (24.0-44.0); MONO # 0.5 10^3/uL (0.0-0.8); MONO % 9.6 % (2.0-8.0); NEUTROPHILS # 2.5 10^3/uL (1.5-8.5); NEUTROPHILS % 50.6 % (36.0-66.0); PLATELET COUNT, AUTOMATED 248 10^3/uL (150-450)
[2025-04-22 10:23] LABS: ALT/SGPT 12.0 U/L (7.0-40); AST/SGOT 21.0 U/L (<34); CALCIUM LEVEL 8.9 MG/DL (8.3-10.6); CARBON DIOXIDE LEVEL 26.0 MMOL/L (20-31); CHLORIDE LEVEL 109.0 MMOL/L (98-107); CREATININE FOR GFR 0.97 MG/DL (0.55-1.30); GLOMERULAR FILTRATION RATE 59.1 (>32); POTASSIUM SERUM 4.2 MMOL/L (3.5-5.1); SODIUM LEVEL 147.0 MMOL/L (136-145)
== END ==
LOC: M LAB 09:19
PROVIDERS: ATTEND Nurse Practitioner Family
DX: I87.2 Venous insufficiency (chronic) (peripheral) (principal)

== ENCOUNTER → 2025-08-02 | Outpatient (CLI) | payer MEDICARE, OTHER ==
[2025-08-02 12:43] LABS: BASO # 0.1 10^3/uL (0.0-0.2); BASO % 0.9 % (0.0-1.0); EOS # 0.1 10^3/uL (0.0-0.5); EOS % 2.4 % (0.0-3.0); LYMPH # 1.7 10^3/uL (1.5-5.0); LYMPH % 31.5 % (24.0-44.0); MONO # 0.6 10^3/uL (0.0-0.8); MONO % 10.7 % (2.0-8.0); NEUTROPHILS # 2.9 10^3/uL (1.5-8.5); NEUTROPHILS % 54.3 % (36.0-66.0); PLATELET COUNT, AUTOMATED 328 10^3/uL (150-450)
[2025-08-02 12:59] LABS: C REACTIVE PROTEIN QUANTITATIV < 0.50 MG/DL (<1.0)
[2025-08-02 13:00] LABS: ALT/SGPT 14 U/L (7.0-40); AST/SGOT 19 U/L (<34); CALCIUM LEVEL 9.1 MG/DL (8.3-10.6); CARBON DIOXIDE LEVEL 26 MMOL/L (20-31); CHLORIDE LEVEL 107 MMOL/L (98-107); CREATININE FOR GFR 0.98 MG/DL (0.55-1.30); GLOMERULAR FILTRATION RATE 58.4 (>32); IRON (FE) 82 UG/DL (50-170); PERCENT SATURATION 25.6 % (13.2-45.0); POTASSIUM SERUM 4.2 MMOL/L (3.5-5.1); SODIUM LEVEL 143 MMOL/L (136-145)
[2025-08-02 13:02] LABS: VITAMIN B12 LEVEL 410 PG/ML (211-911)
[2025-08-02 13:04] LABS: ERYTHROCYTE SEDIMENTATION RATE 16 mm/hr (0-30)
== END ==
LOC: M WUC 08:53
PROVIDERS: ATTEND Nurse Practitioner Family
DX: D64.9 Anemia, unspecified (principal)

== ENCOUNTER → 2025-08-05 | Outpatient (REF) | payer MEDICARE, OTHER | LOC: M LAB REF 17:12 | PROVIDERS: ATTEND Nurse Practitioner Family | DX: D64.9 Anemia, unspecified (principal) ==

== ENCOUNTER → 2025-09-19 | Outpatient (CLI) | payer MEDICARE, OTHER | LOC: M PLAIMG 15:47 | PROVIDERS: ATTEND Nurse Practitioner Family | DX: J20.9 Acute bronchitis, unspecified (principal) ==